=== PATIENT | female | born 1930 | race Caucasian/White ===

== ENCOUNTER 2018-11-12 17:58 | Inpatient (IN) | payer MEDICARE ==
[2018-11-12] MEDS ORDERED: SODIUM CHLORIDE 0.9% 1,000 ML IV STA (18:02)
--- NOTE | 2018-11-12 18:09 | ED ---
Syncope HPI - General Stated Complaint: possible stroke CA PT Time Seen by Provider: 11/12/18 18:02 Source: RN notes reviewed, old records reviewed Mode of arrival: EMS - History of Present Illness Initial Comments: This is a 8-year-old female the ER for evaluation of syncopal event. EMS states patient was in sinus rhythm as well as atrial fibrillation during transfer. Patient has no significant history of syncope. Currently denying any complaints no headache chest pain shortness breath or abdominal pain. This patient is a known history of CVA hypertension high cholesterol. Patient's been dizzy for a few days which progressed unresponsiveness episode today. No recent change in medications. MD Complaint: loss of consciousness -: minutes(s) Prodromal Symptoms: lightheaded, palpitations -: second(s) Witnessed: yes - by bystander, yes - by EMS Current Symptoms: lightheaded History: previous syncopal episode Context: at rest Treatments Prior to Arrival: none - Related Data Home Medications Medication Instructions Recorded Confirmed Albuterol Sulfate [Proair Hfa] 1 - 2 puff INHALATION RT-QID PRN 11/12/18 11/12/18 Beclomethasone Dipropionate [Qvar 1 puff INHALATION RT-BID 11/12/18 11/12/18 40 mcg Redihaler] Iron 27mg 27 mg PO BID 11/12/18 11/12/18 Levothyroxine Sodium [Synthroid] 137 mcg PO MOTUWETHFRSA 11/12/18 11/12/18 Levothyroxine Sodium [Synthroid] 274 mcg PO HAIRSTON 11/12/18 11/12/18 Metoprolol Succinate [Toprol XL] 50 mg PO DAILY@1200 11/12/18 11/12/18 Simvastatin [Zocor] 20 mg PO HS 11/12/18 11/12/18 amLODIPine [Norvasc] 10 mg PO DAILY 11/12/18 11/12/18 Allergies Allergy/AdvReac Type Severity Reaction Status Date / Time No Known Allergies Allergy Verified 11/12/18 18:33 Review of Systems ROS Statement: Those systems with pertinent positive or pertinent negative responses have been documented in the HPI. ROS Other: All systems not noted in ROS Statement are negative. General Exam General appearance: alert, in no apparent distress Head exam: Present: atraumatic, normocephalic, normal inspection Eye exam: Present: normal appearance, PERRL, EOMI. Absent: scleral icterus, conjunctival injection, periorbital swelling ENT exam: Present: normal exam, mucous membranes moist Neck exam: Present: normal inspection. Absent: tenderness, meningismus, lymphadenopathy Respiratory exam: Present: normal lung sounds bilaterally. Absent: respiratory distress, wheezes, rales, rhonchi, stridor Cardiovascular Exam: Present: regular rate, normal rhythm, normal heart sounds. Absent: systolic murmur, diastolic murmur, rubs, gallop, clicks GI/Abdominal exam: Present: soft, normal bowel sounds. Absent: distended, tenderness, guarding, rebound, rigid Extremities exam: Present: normal inspection, full ROM, normal capillary refill. Absent: tenderness, pedal edema, joint swelling, calf tenderness Back exam: Present: normal inspection Neurological exam: Present: alert, oriented X3, CN II-XII intact Psychiatric exam: Present: normal affect, normal mood Skin exam: Present: warm, dry, intact, normal color. Absent: rash Course Vital Signs 11/12/18 18:11 Temperature 98.5 F Pulse Rate 69 Respiratory 19 Rate Blood Pressure 127/86 O2 Sat by Pulse 95 Oximetry - Reevaluation(s) Reevaluation #1: 11/12/18 18:32 Medical records reviewed as well as EMS EKG and rhythm strip Reevaluation #2: 11/12/18 19:31 Patient without recurrent syncope here in the ER, still not feeling well Medical Decision Making - Medical Decision Making 88 female the ER for syncopal evaluation. Patient be admitted for telemetry. Patient did have syncopal events, will admit for monitoring of possible causes of syncope. - Lab Data Result diagrams: 11/12/18 18:31 11/12/18 18:31 Lab Results 11/12/18 11/12/18 11/12/18 Range/Units 18:31 18:31 18:31 WBC 16.6 H (3.8-10.6) k/uL RBC 4.48 (3.80-5.40) m/uL Hgb 11.2 L (11.4-16.0) gm/dL Hct 37.4 (34.0-46.0) % MCV 83.4 (80.0-100.0) fL MCH 24.9 L (25.0-35.0) pg MCHC 29.9 L (31.0-37.0) g/dL RDW 16.8 H (11.5-15.5) % Plt Count 393 (150-450) k/uL Neutrophils % 90 % Lymphocytes % 5 % Monocytes % 4 % Eosinophils % 1 % Basophils % 0 % Neutrophils # 14.9 H (1.3-7.7) k/uL Lymphocytes # 0.8 L (1.0-4.8) k/uL Monocytes # 0.6 (0-1.0) k/uL Eosinophils # 0.1 (0-0.7) k/uL Basophils # 0.0 (0-0.2) k/uL Hypochromasia Moderate Anisocytosis Slight Sodium 134 L (137-145) mmol/L Potassium 3.2 L (3.5-5.1) mmol/L Chloride 95 L (98-107) mmol/L Carbon Dioxide 32 H (22-30) mmol/L Anion Gap 7 mmol/L BUN 12 (7-17) mg/dL Creatinine 0.95 (0.52-1.04) mg/dL Est GFR (CKD-EPI)AfAm 63 (>60 ml/min/1.73 sqM) Est GFR (CKD-EPI)NonAf 54 (>60 ml/min/1.73 sqM) Glucose 131 H (74-99) mg/dL Calcium 8.8 (8.4-10.2) mg/dL Magnesium 1.5 L (1.6-2.3) mg/dL Total Bilirubin 1.2 (0.2-1.3) mg/dL AST 12 L (14-36) U/L ALT 8 L (9-52) U/L Alkaline Phosphatase 102 (38-126) U/L Creatine Kinase <20 L (30-135) U/L Total Protein 6.0 L (6.3-8.2) g/dL Albumin 2.8 L (3.5-5.0) g/dL Urine Color Yellow Urine Appearance Cloudy H (Clear) Urine pH 5.5 (5.0-8.0) Ur Specific [place] 1.019 (1.001-1.035) Urine Protein 1+ H (Negative) Urine Glucose (UA) Negative (Negative) Urine Ketones Negative (Negative) Urine Blood Negative (Negative) Urine Nitrite Negative (Negative) Urine Bilirubin Negative (Negative) Urine Urobilinogen 2.0 (<2.0) mg/dL Ur Leukocyte Esterase Negative (Negative) Urine WBC 9 H (0-5) /hpf Ur Squamous Epith Cells <1 (0-4) /hpf Hyaline Casts 207 H (0-2) /lpf Urine Mucus Few H (None) /hpf - Radiology Data Radiology results: report reviewed (CT brain is negative for acute disease, chest x-rays negative for acute disease), image reviewed Disposition Clinical Impression: Vasovagal syncope, Cancer Disposition: ADMITTED IP TO THIS HOSP Condition: Fair Is patient prescribed a controlled substance at d/c from ED?: No Referrals: Rohan Philip DO [Primary Care Provider] - 1-2 days
[2018-11-12 19:05] LABS: Anisocytosis Slight; Basophils % (A) 0 %; Eosinophils # (A) 0.1 k/uL (0-0.7); Eosinophils % (A) 1 %; HCT 37.4 % (34.0-46.0); HGB 11.2 gm/dL (11.4-16.0); Hypochromasia Moderate; Lymphocytes # (A) 0.8 k/uL (1.0-4.8); Lymphocytes % (A) 5 %; MCH 24.9 pg (25.0-35.0); MCHC 29.9 g/dL (31.0-37.0); MCV 83.4 fL (80.0-100.0); Mean Platelet Volume 7.4; Monocytes # (A) 0.6 k/uL (0-1.0); Monocytes % (A) 4 %; Neutrophils # (A) 14.9 k/uL (1.3-7.7); Neutrophils % (A) 90 %; Platelet Count 393 k/uL (150-450); RBC 4.48 m/uL (3.80-5.40); RDW 16.8 % (11.5-15.5); WBC 16.6 k/uL (3.8-10.6)
[2018-11-12 19:18] LABS: ALT 8 U/L (9-52); AST 12 U/L (14-36); Albumin 2.8 g/dL (3.5-5.0); Alkaline Phosphatase 102 U/L (38-126); Anion Gap 7 mmol/L; Appearance,Urine Cloudy (Clear); Bilirubin,Urine Negative (Negative); Blood Urea Nitrogen 12 mg/dL (7-17); Blood,Urine Negative (Negative); Calcium 8.8 mg/dL (8.4-10.2); Carbon Dioxide 32 mmol/L (22-30); Chloride 95 mmol/L (98-107); Color,Urine Yellow; Creatine Kinase <20 U/L (30-135); Glucose 131 mg/dL (74-99); Glucose,Urine (UA) Negative (Negative); Hyaline Casts,Urine 207 /lpf (0-2); Ketones,Urine Negative (Negative); Leukocyte Esterase,Urine Negative (Negative); Magnesium 1.5 mg/dL (1.6-2.3); Mucus,Urine Few /hpf; Nitrite,Urine Negative (Negative); PH, Urine 5.5 (5.0-8.0); Potassium 3.2 mmol/L (3.5-5.1); Protein,Urine 1+ (Negative); Sodium 134 mmol/L (137-145); Specific Gravity,Urine 1.019 (1.001-1.035); Squamous Epithelial Cell,Urine <1 /hpf (0-4); Total Bilirubin 1.2 mg/dL (0.2-1.3); WBC,Urine 9 /hpf (0-5)
[2018-11-12] MEDS ORDERED: NITROGLYCERIN SL TABS 0.4 MG TAB SUBLINGUAL PRN (19:28)
[2018-11-12 19:34] LABS: INR 1.1 (<1.2); Partial Thromboplastin Time 24.1 sec (22.0-30.0); Prothrombin Time 11.9 sec (9.0-12.0)
[2018-11-12 19:41] LABS: D-Dimer 3.69 mg/L FEU (<0.60)
--- NOTE | 2018-11-12 19:46 | XR ---
EXAMINATION TYPE: XR chest 2V DATE OF EXAM: 11/12/2018 COMPARISON: NONE HISTORY: Syncope TECHNIQUE: Frontal and lateral views of the chest are obtained. FINDINGS: There is some patchy airspace infiltrate left lower lobe. There are 2 nodular opacities in the right lower lung field on the frontal view that measure up to 2 cm. There is no heart failure. H eart size is normal. There are chest leads. Thoracic aorta is atheromatous. Bony thorax is intact. Th ere is pleural thickening posteriorly on the left side on the lateral view. IMPRESSION: Left lower lobe patchy pneumonia. No heart failure. Right ovary nodules are relatively d ense and could be granulomata. There is some pleural thickening at the left posterior lung base on th e lateral view. Follow-up is recommended show long-term stability or clearing.
--- NOTE | 2018-11-12 19:47 | CT ---
EXAMINATION TYPE: CT brain wo con DATE OF EXAM: 11/12/2018 COMPARISON: None HISTORY: WEAKNESS AND SYNCOPE CT DLP: 1098.4 mGycm Automated exposure control for dose reduction was used. FINDINGS: There is cerebral cortical atrophy. There is no mass effect nor midline shift. There is no sign of in tracranial hemorrhage. There is mild hypodensity around the frontal horns of the lateral ventricles. Calvarium is intact. 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 NO ACUTE INTRACRANIAL ABNORMALITY.
[2018-11-12] MEDS: POTASSIUM CHLORIDE 20 MEQ in WATER FOR INJECTION 1 100ML.BAG IVPB SCH (20:10)
[2018-11-12] MEDS: MAGNESIUM SULFATE-D5W PMX 1 GM in DEXTROSE/WATER 1 100ML.BAG IVPB SCH ×2 (20:10→21:33)
[2018-11-12] MEDS: SODIUM CHLORIDE 0.9% 1,000 ML IV SCH (20:11)
--- NOTE | 2018-11-12 20:47 | CT ---
EXAMINATION TYPE: CT angio chest DATE OF EXAM: 11/12/2018 8:00 PM COMPARISON: None HISTORY: Elevated D-dimer and syncope. CT DLP: 206.4 mGycm Automated exposure control for dose reduction was used. CONTRAST: CTA scan of the thorax is performed with IV Contrast, patient injected with 62ml mL of Isovue 370, pu lmonary embolism protocol. There are 3-D post processed images.. FINDINGS: There is small left apical pneumothorax of approximately 10%. There is irregular pleural thickening a t the left posterior lung base. There are 2 subpleural pulmonary nodules in the posterior right lower lobe near the chest wall. These measure 2 cm and 1.5 cm. There is calcified granuloma in the mediastinum. Thoracic aorta is atheromatous. THERE IS PROBABLY A TINY AMOUNT OF AIR IN THE ANTERIOR BILIARY TREE CONSISTENT WITH INCOMPETENT SPHIN CTER. There is normal contrast opacification of the pulmonary arteries. I see no filling defect. There are no hilar masses. There is spurring in the thoracic spine. I see no bony destructive process. IMPRESSION: No evidence of pulmonary embolism. Emphysema and pulmonary fibrosis. Right lower lobe nodules are not calcified but are relatively dense and could be granulomata. Irregular pleural thickening at the left lung base with some patchy fibrosis and atelectasis. Small l eft-sided pneumothorax. This exam was discussed with ER physician at 8:43 PM.
[2018-11-13] MEDS: POTASSIUM CHLORIDE 20 MEQ in WATER FOR INJECTION 1 100ML.BAG IVPB SCH (06:10)
[2018-11-13] MEDS: LEVOTHYROXINE 137 MCG TAB PO SCH (06:12)
[2018-11-13] MEDS: SODIUM CHLORIDE 0.9% 1,000 ML IV SCH ×2 (06:12→16:32)
[2018-11-13] MEDS: amLODIPine 10 MG TAB PO SCH (09:08)
[2018-11-13] MEDS: ASPIRIN 325 MG TAB PO SCH (09:10)
[2018-11-13] MEDS: ENOXAPARIN 40 MG/0.4 ML SYRINGE SQ SCH (09:10)
[2018-11-13] MEDS: FERROUS SULFATE ORAL ELIXIR 300 MG/5 ML CUP PO SCH ×2 (09:10→19:56)
[2018-11-13] MEDS: ALBUTEROL NEBULIZED 2.5 MG/3 ML INHALATION SCH ×4 (11:03→19:49)
[2018-11-13] MEDS: BUDESONIDE 0.5 MG/2 ML NEBU INHALATION SCH ×2 (11:12→19:49)
--- NOTE | 2018-11-13 11:41 | P.CONS ---
History of Present Illness - Reason for Consult Consult date: 11/13/18 New diagnosis Malignancy Requesting physician: Kvng Rhodes - Chief Complaint syncope - History of Present Illness Alyson is a 88-year-old patient who originally presented to [facility] in August with hematochezia she was found to be profusely anemic and transfused a unit of packed red blood cells she was transferred to [facility] for she was given a second unit of packed red blood cells. CAT scans were completed and revealed a proximal colonic wall thickening suspicious for neoplastic process. She was seen by Dr. VILLAGRAN had a colonoscopy on 10/24/2018 at that time the colonoscopy revealed 2 polyps in the transverse colon ,and an ulcerating mass in the proximal ascending colon biopsies of the mass were taken and resulted with adenocarcinoma the biopsies of the 2 polyps revealed tubular adenomas. CAT scans of the abdomen and pelvis in August revealed a right posterior lesion of the lung base approximately at that time 1.2 cm, this has been monitored since January 2018 which appeared stable in August. She was seen by Dr. Banegas in the office for her first time consultation yesterday 11/12/2018 she presented with her family at that time and they discussed the natural history of her new diagnosis of colon cancer as well as recommendations were given. Recommendations were for surgical intervention for a resection of the tumor and that with a right colectomy for palliative treatment to prevent further bleeding as well as the potential of future perforation. She was also given the options of chemotherapy and/or prevent potential radiation therapy but due to her advanced age and comorbidities this was not recommended Dr. Weiss was referred at that appointment for further search surgical evaluation. Alyson presented to the emergency room last night via EMS for syncopal episode she states that she has been feeling Saurabh lightheaded and dizzy over the past few weeks related to her anemia. On admission a CAT scan of the brain was completed with no acute etiology as well as a CTA of the chest which showed a very small left apical pneumothorax of approximately 10% again represented to subpleural pulmonary nodules in the posterior right lung of the lower lobe near the chest wall measuring now 2 cm and 1.5 cm. On admission she was also found hypokalemic she's given IV hydration and supportive care hematology oncology as well as a consultation for Dr. Isabel Joseph. surgery regarding the right colectomy recommendation was placed she was seen this morning by Dr. Daniels and myself with no acute complaints Review of Systems A 14 point review of systems was assessed and completed and are all negative except for HPI Past Medical History Past Medical History: Cancer, COPD, Hyperlipidemia, Hypertension, Thyroid Disorder Additional Past Medical History / Comment(s): aortic aneurysm; colon, dx 11/12/18 History of Any Multi-Drug Resistant Organisms: None Reported Past Surgical History: Cholecystectomy Additional Past Surgical History / Comment(s): spleen removed; colonscopy recent Past Anesthesia/Blood Transfusion Reactions: No Reported Reaction Past Psychological History: No Psychological Hx Reported Smoking Status: Former smoker Past Alcohol Use History: None Reported Past Drug Use History: None Reported - Past Family History Daughter(s) Family Medical History: No Reported History Medications and Allergies Home Medications Medication Instructions Recorded Confirmed Type Albuterol Sulfate [Proair Hfa] 1 - 2 puff INHALATION RT-QID PRN 11/12/18 11/12/18 History Beclomethasone Dipropionate [Qvar 1 puff INHALATION RT-BID 11/12/18 11/12/18 History 40 mcg Redihaler] Iron 27mg 27 mg PO BID 11/12/18 11/12/18 History Levothyroxine Sodium [Synthroid] 137 mcg PO MOTUWETHFRSA 11/12/18 11/12/18 History Levothyroxine Sodium [Synthroid] 274 mcg PO HAIRSTON 11/12/18 11/12/18 History Metoprolol Succinate [Toprol XL] 50 mg PO DAILY@1200 11/12/18 11/12/18 History Simvastatin [Zocor] 20 mg PO HS 11/12/18 11/12/18 History amLODIPine [Norvasc] 10 mg PO DAILY 11/12/18 11/12/18 History Allergies Allergy/AdvReac Type Severity Reaction Status Date / Time No Known Allergies Allergy Verified 11/12/18 18:33 Physical Exam Vitals: Vital Signs Temp Pulse Pulse Resp BP BP Pulse Ox 11/13/18 05:41 97.6 F 71 18 120/66 96 11/12/18 22:33 98.3 F 78 18 136/88 93 L 11/12/18 21:20 95 14 134/68 94 L 11/12/18 21:10 73 18 134/68 93 L 11/12/18 21:00 90 18 125/63 95 11/12/18 20:50 91 24 125/63 94 L 11/12/18 20:40 90 12 125/63 96 11/12/18 20:30 75 19 135/80 94 L 11/12/18 20:20 90 20 135/80 92 L 11/12/18 20:10 80 20 135/80 95 11/12/18 20:00 71 19 133/89 93 L 11/12/18 19:50 133/89 11/12/18 19:40 76 22 133/89 96 11/12/18 19:30 90 21 139/74 96 11/12/18 19:20 99 22 139/74 95 11/12/18 19:10 139/74 11/12/18 19:00 84 20 119/73 95 11/12/18 18:50 119/73 91 L 11/12/18 18:40 119/73 89 L 11/12/18 18:30 127/86 96 11/12/18 18:20 127/86 95 11/12/18 18:13 96 11/12/18 18:11 98.5 F 69 19 127/86 95 Intake and Output 11/12/18 11/13/18 11/13/18 22:59 06:59 14:59 Intake Total 60 Balance 60 Intake: Oral 60 Other: # Voids 3 1 Weight 55.338 kg General: Alert and Oriented x3, No Acute Distress Head: Normocytic, Atraumatic Neck: Supple Mouth: No Lesions, No Thrush Eyes: Non-sclerotic No Palpable cervical, supraclavicular, axillary adenopathy Heart: Regular Rate, Regular Rhythm Lungs: Clear to Ausculations, No Wheeze, No Rhonchi, Diminishe bilateral lower lobes, No increased respiratory effort noted Abdomen: Soft, Non-Distended, Non-Tended, BSx4 Extremities: No Edema, Equal Strength Neurological: No Focal Defects: No sensory or motor deficits noted Psych: Calm and cooperative Results CBC & Chem 7: 11/12/18 18:31 11/12/18 18:31 Labs: Abnormal Lab Results - Last 24 Hours (Table) 11/12/18 11/12/18 11/12/18 Range/Units 18:31 18:31 18:31 WBC 16.6 H (3.8-10.6) k/uL Hgb 11.2 L (11.4-16.0) gm/dL MCH 24.9 L (25.0-35.0) pg MCHC 29.9 L (31.0-37.0) g/dL RDW 16.8 H (11.5-15.5) % Neutrophils # 14.9 H (1.3-7.7) k/uL Lymphocytes # 0.8 L (1.0-4.8) k/uL D-Dimer 3.69 H (<0.60) mg/L FEU Sodium 134 L (137-145) mmol/L Potassium 3.2 L (3.5-5.1) mmol/L Chloride 95 L (98-107) mmol/L Carbon Dioxide 32 H (22-30) mmol/L Glucose 131 H (74-99) mg/dL Magnesium 1.5 L (1.6-2.3) mg/dL AST 12 L (14-36) U/L ALT 8 L (9-52) U/L Creatine Kinase <20 L (30-135) U/L Total Protein 6.0 L (6.3-8.2) g/dL Albumin 2.8 L (3.5-5.0) g/dL TSH (0.465-4.680) mIU/L Urine Appearance (Clear) Urine Protein (Negative) Urine WBC (0-5) /hpf Hyaline Casts (0-2) /lpf Urine Mucus (None) /hpf 11/12/18 11/13/18 Range/Units 18:31 07:32 WBC (3.8-10.6) k/uL Hgb (11.4-16.0) gm/dL MCH (25.0-35.0) pg MCHC (31.0-37.0) g/dL RDW (11.5-15.5) % Neutrophils # (1.3-7.7) k/uL Lymphocytes # (1.0-4.8) k/uL D-Dimer (<0.60) mg/L FEU Sodium (137-145) mmol/L Potassium (3.5-5.1) mmol/L Chloride (98-107) mmol/L Carbon Dioxide (22-30) mmol/L Glucose (74-99) mg/dL Magnesium (1.6-2.3) mg/dL AST (14-36) U/L ALT (9-52) U/L Creatine Kinase (30-135) U/L Total Protein (6.3-8.2) g/dL Albumin (3.5-5.0) g/dL TSH 0.033 L (0.465-4.680) mIU/L Urine Appearance Cloudy H (Clear) Urine Protein 1+ H (Negative) Urine WBC 9 H (0-5) /hpf Hyaline Casts 207 H (0-2) /lpf Urine Mucus Few H (None) /hpf CT scan - chest: report reviewed CT Scan - head: report reviewed Assessment and Plan (1) Colon cancer Current Visit: Yes Status: Acute Code(s): C18.9 - MALIGNANT NEOPLASM OF COLON, UNSPECIFIED SNOMED Code(s): 357942767 (2) Normocytic anemia Current Visit: Yes Status: Acute Code(s): D64.9 - ANEMIA, UNSPECIFIED SNOMED Code(s): 962243145 Plan: Assessment and Recommendation New Diagnosis of Adenocarcinoma of the Colon: - Colonoscopy and Pathology performed and resulted at outside hospital - Obtain a copy of diagnstic exams and pathology report - Recommendations have been for surgical intervention, plus/minus adjuvant chemotherapy. with her advanced age and co-morbidies chemotherapy is not entirely recommended, this was discussed in detail with patient and her family by Dr. Banegas on 11/12/18 in office consultation. Goals of care are quality of life, therefore a colectomy was recommendation for prevention of tumor burden complications such as further bleeding, colonic obstruction, and possibly perforation. - Dr. Weiss has been consulted - Baseline CEA today Normocytic Anemia: - Secondary to acute blood loss anemia from malignancy - Will check Iron studies today and can set patient up for parental iron in office Vasovagal, Syncopal Episode: Improved Hypokalemia: - Likely secondary to dehydration - IV hydration and replacement of electrolytes - Recheck Electrolytes and Magnesium today Plan: - General Surgery to evaluate - Iron Replacement - Follow-up in office post-operatively Physician Attestation: I have performed the full physical examination and reviewed the full history of this patient, as well as pertinent findings. I have created the compled impression and recommendations. I agree with the above dictation by MEENAKSHI Brewer. This dictation has been written as a scribe.
[2018-11-13 12:12] LABS: ALT 15 U/L (9-52); AST 12 U/L (14-36); Albumin 2.5 g/dL (3.5-5.0); Alkaline Phosphatase 89 U/L (38-126); Anion Gap 2 mmol/L; Blood Urea Nitrogen 9 mg/dL (7-17); Calcium 8.5 mg/dL (8.4-10.2); Carbon Dioxide 33 mmol/L (22-30); Chloride 101 mmol/L (98-107); Glucose 90 mg/dL (74-99); Magnesium 1.8 mg/dL (1.6-2.3); Potassium 2.9 mmol/L (3.5-5.1); Sodium 136 mmol/L (137-145); Total Bilirubin 1.1 mg/dL (0.2-1.3); Total Protein 5.5 g/dL (6.3-8.2)
[2018-11-13 12:34] LABS: Anisocytosis Slight; Basophils % (A) 0 %; Eosinophils # (A) 0.4 k/uL (0-0.7); Eosinophils % (A) 3 %; HCT 37.4 % (34.0-46.0); HGB 11.1 gm/dL (11.4-16.0); Hypochromasia Marked; Lymphocytes # (A) 1.2 k/uL (1.0-4.8); Lymphocytes % (A) 10 %; MCH 25.6 pg (25.0-35.0); MCHC 29.8 g/dL (31.0-37.0); MCV 85.9 fL (80.0-100.0); Mean Platelet Volume 9.4; Monocytes # (A) 0.7 k/uL (0-1.0); Monocytes % (A) 5 %; Neutrophils # (A) 10.2 k/uL (1.3-7.7); Neutrophils % (A) 81 %; Platelet Count 366 k/uL (150-450); RBC 4.36 m/uL (3.80-5.40); RDW 16.3 % (11.5-15.5); WBC 12.6 k/uL (3.8-10.6)
[2018-11-13] MEDS: METOPROLOL SUCCINATE (ER) 50 MG TAB.ER.24H PO SCH (13:15)
--- NOTE | 2018-11-13 14:07 | P.GSCN ---
<Lakshmi Burnett - Last Filed: 11/13/18 14:03> History of Present Illness Consult date: 11/13/18 Reason for Consult: [place] Requesting physician: Kvng Rhodes History of present illness: CHIEF COMPLAINT: syncope, cancer HISTORY OF PRESENT ILLNESS: 88-year-old female who presented to the ER secondary to syncope. General surgery is consulted for further evaluation of recent cancer diagnosis. Patients daughter is at the bedside and relaying majority of information. Daughter states patient recently had some GI bleeding and underwent colonoscopy at [facility]. She states colonoscopy revealed a tumor on the right side of her colon and some polyps on the left. Daughter states pathology came back positive for cancer. She had an appointment with oncology outpatient yesterday and was referred to Dr. Weiss for further evaluation. PAST MEDICAL HISTORY: See list. PAST SURGICAL HISTORY: See list. SOCIAL HISTORY: No illicit drug use. REVIEW OF SYSTEMS: CONSTITUTIONAL: Denies fever or chills. HEENT: Denies blurred vision, vision changes, or eye pain. Denies hemoptysis CARDIOVASCULAR: Denies chest pain or pressure. RESPIRATORY: No shortness of breath. GASTROINTESTINAL: Refer to HPI for pertinent findings HEMATOLOGIC: Denies bleeding disorders. GENITOURINARY: Denies any blood in urine. SKIN: Denies pruitis. Denies rash. PHYSICAL EXAM: VITAL SIGNS: Reviewed. GENERAL: Well-developed in no acute distress. HEENT: No sclera icterus. Extraocular movements grossly intact. Moist buccal mucosa. Head is atraumatic, normocephalic. ABDOMEN: Soft. Nondistended. Nontender. NEUROLOGIC: Alert and oriented. Cranial nerves II through XII grossly intact. ASSESSMENT: 1. Recent diagnosis of adenocarcinoma of the colon PLAN: Patients daughter states her mother is agreeable to surgery if it only involves removing the part of the colon where she has the tumor, but patient does not want to undergo surgery if she will require an ostomy and does not want to undergo chemotherapy. CT abdomen and pelvis has been ordered by oncology. Await results. Dr. Weiss will evaluate patient this afternoon for possible right colectomy. Nurse practitioner note has been reviewed by physician. Signing provider agrees with the documented findings, assessment, and plan of care. Past Medical History Past Medical History: Cancer, COPD, Hyperlipidemia, Hypertension, Thyroid Disorder Additional Past Medical History / Comment(s): aortic aneurysm; colon, dx 11/12/18 History of Any Multi-Drug Resistant Organisms: None Reported Past Surgical History: Cholecystectomy Additional Past Surgical History / Comment(s): spleen removed; colonscopy recent Past Anesthesia/Blood Transfusion Reactions: No Reported Reaction Past Psychological History: No Psychological Hx Reported Smoking Status: Former smoker Past Alcohol Use History: None Reported Past Drug Use History: None Reported - Past Family History Daughter(s) Family Medical History: No Reported History Medications and Allergies Home Medications Medication Instructions Recorded Confirmed Type Albuterol Sulfate [Proair Hfa] 1 - 2 puff INHALATION RT-QID PRN 11/12/18 11/12/18 History Beclomethasone Dipropionate [Qvar 1 puff INHALATION RT-BID 11/12/18 11/12/18 History 40 mcg Redihaler] Iron 27mg 27 mg PO BID 11/12/18 11/12/18 History Levothyroxine Sodium [Synthroid] 137 mcg PO MOTUWETHFRSA 11/12/18 11/12/18 History Levothyroxine Sodium [Synthroid] 274 mcg PO HAIRSTON 11/12/18 11/12/18 History Metoprolol Succinate [Toprol XL] 50 mg PO DAILY@1200 11/12/18 11/12/18 History Simvastatin [Zocor] 20 mg PO HS 11/12/18 11/12/18 History amLODIPine [Norvasc] 10 mg PO DAILY 11/12/18 11/12/18 History Allergies Allergy/AdvReac Type Severity Reaction Status Date / Time No Known Allergies Allergy Verified 11/12/18 18:33 Surgical - Exam Vital Signs Temp Pulse Resp BP Pulse Ox 98.5 F 69 19 127/86 95 11/12/18 18:11 11/12/18 18:11 11/12/18 18:11 11/12/18 18:11 11/12/18 18:11 Results - Labs 11/13/18 07:33 11/13/18 07:33 Abnormal Lab Results - Last 24 Hours (Table) 11/12/18 11/12/18 11/12/18 Range/Units 18:31 18:31 18:31 WBC 16.6 H (3.8-10.6) k/uL Hgb 11.2 L (11.4-16.0) gm/dL MCH 24.9 L (25.0-35.0) pg MCHC 29.9 L (31.0-37.0) g/dL RDW 16.8 H (11.5-15.5) % Neutrophils # 14.9 H (1.3-7.7) k/uL Lymphocytes # 0.8 L (1.0-4.8) k/uL D-Dimer 3.69 H (<0.60) mg/L FEU Sodium 134 L (137-145) mmol/L Potassium 3.2 L (3.5-5.1) mmol/L Chloride 95 L (98-107) mmol/L Carbon Dioxide 32 H (22-30) mmol/L Glucose 131 H (74-99) mg/dL Magnesium 1.5 L (1.6-2.3) mg/dL AST 12 L (14-36) U/L ALT 8 L (9-52) U/L Creatine Kinase <20 L (30-135) U/L Total Protein 6.0 L (6.3-8.2) g/dL Albumin 2.8 L (3.5-5.0) g/dL TSH (0.465-4.680) mIU/L Urine Appearance (Clear) Urine Protein (Negative) Urine WBC (0-5) /hpf Hyaline Casts (0-2) /lpf Urine Mucus (None) /hpf 11/12/18 11/13/18 11/13/18 Range/Units 18:31 07:32 07:33 WBC 12.6 H (3.8-10.6) k/uL Hgb 11.1 L (11.4-16.0) gm/dL MCH (25.0-35.0) pg MCHC 29.8 L (31.0-37.0) g/dL RDW 16.3 H (11.5-15.5) % Neutrophils # 10.2 H (1.3-7.7) k/uL Lymphocytes # (1.0-4.8) k/uL D-Dimer (<0.60) mg/L FEU Sodium (137-145) mmol/L Potassium (3.5-5.1) mmol/L Chloride (98-107) mmol/L Carbon Dioxide (22-30) mmol/L Glucose (74-99) mg/dL Magnesium (1.6-2.3) mg/dL AST (14-36) U/L ALT (9-52) U/L Creatine Kinase (30-135) U/L Total Protein (6.3-8.2) g/dL Albumin (3.5-5.0) g/dL TSH 0.033 L (0.465-4.680) mIU/L Urine Appearance Cloudy H (Clear) Urine Protein 1+ H (Negative) Urine WBC 9 H (0-5) /hpf Hyaline Casts 207 H (0-2) /lpf Urine Mucus Few H (None) /hpf 11/13/18 Range/Units 07:33 WBC (3.8-10.6) k/uL Hgb (11.4-16.0) gm/dL MCH (25.0-35.0) pg MCHC (31.0-37.0) g/dL RDW (11.5-15.5) % Neutrophils # (1.3-7.7) k/uL Lymphocytes # (1.0-4.8) k/uL D-Dimer (<0.60) mg/L FEU Sodium 136 L (137-145) mmol/L Potassium 2.9 L (3.5-5.1) mmol/L Chloride (98-107) mmol/L Carbon Dioxide 33 H (22-30) mmol/L Glucose (74-99) mg/dL Magnesium (1.6-2.3) mg/dL AST 12 L (14-36) U/L ALT (9-52) U/L Creatine Kinase (30-135) U/L Total Protein 5.5 L (6.3-8.2) g/dL Albumin 2.5 L (3.5-5.0) g/dL TSH (0.465-4.680) mIU/L Urine Appearance (Clear) Urine Protein (Negative) Urine WBC (0-5) /hpf Hyaline Casts (0-2) /lpf Urine Mucus (None) /hpf Diabetes panel 11/12/18 11/13/18 11/13/18 Range/Units 18:31 07:32 07:33 Sodium 134 L 136 L (137-145) mmol/L Potassium 3.2 L 2.9 L (3.5-5.1) mmol/L Chloride 95 L 101 (98-107) mmol/L Carbon Dioxide 32 H 33 H (22-30) mmol/L BUN 12 9 (7-17) mg/dL Creatinine 0.95 0.58 (0.52-1.04) mg/dL Glucose 131 H 90 (74-99) mg/dL Calcium 8.8 8.5 (8.4-10.2) mg/dL AST 12 L 12 L (14-36) U/L ALT 8 L 15 (9-52) U/L Alkaline Phosphatase 102 89 (38-126) U/L Total Protein 6.0 L 5.5 L (6.3-8.2) g/dL Albumin 2.8 L 2.5 L (3.5-5.0) g/dL Triglycerides 70 (<150) mg/dL HDL Cholesterol 45 (40-60) mg/dL Thyroid panel 11/13/18 Range/Units 07:32 TSH 0.033 L (0.465-4.680) mIU/L Calcium panel 11/12/18 11/13/18 Range/Units 18:31 07:33 Calcium 8.8 8.5 (8.4-10.2) mg/dL Albumin 2.8 L 2.5 L (3.5-5.0) g/dL Pituitary panel 11/12/18 11/13/18 11/13/18 Range/Units 18:31 07:32 07:33 Sodium 134 L 136 L (137-145) mmol/L Potassium 3.2 L 2.9 L (3.5-5.1) mmol/L Chloride 95 L 101 (98-107) mmol/L Carbon Dioxide 32 H 33 H (22-30) mmol/L BUN 12 9 (7-17) mg/dL Creatinine 0.95 0.58 (0.52-1.04) mg/dL Glucose 131 H 90 (74-99) mg/dL Calcium 8.8 8.5 (8.4-10.2) mg/dL TSH 0.033 L (0.465-4.680) mIU/L Adrenal panel 11/12/18 11/13/18 Range/Units 18:31 07:33 Sodium 134 L 136 L (137-145) mmol/L Potassium 3.2 L 2.9 L (3.5-5.1) mmol/L Chloride 95 L 101 (98-107) mmol/L Carbon Dioxide 32 H 33 H (22-30) mmol/L BUN 12 9 (7-17) mg/dL Creatinine 0.95 0.58 (0.52-1.04) mg/dL Glucose 131 H 90 (74-99) mg/dL Calcium 8.8 8.5 (8.4-10.2) mg/dL Total Bilirubin 1.2 1.1 (0.2-1.3) mg/dL AST 12 L 12 L (14-36) U/L ALT 8 L 15 (9-52) U/L Alkaline Phosphatase 102 89 (38-126) U/L Total Protein 6.0 L 5.5 L (6.3-8.2) g/dL Albumin 2.8 L 2.5 L (3.5-5.0) g/dL <Everett Weiss - Last Filed: 11/13/18 20:15> History of Present Illness History of present illness: As above. Patient with mental status changes that have improved. CTA reviewed and CAT scan abdomen and pelvis scheduled for tomorrow morning. Patient is having some obstructive symptoms related to her right-sided tumor. On examination there is some fullness in the right lower quadrant. We'll tentatively plan open right colectomy when medically cleared assuming there is no large volume metastatic disease seen on tomorrow's CAT scan. Clinical scen ario discussed with the patient in detail. Further decisions regarding surgery will be discussed with the patient tomorrow. Surgical - Exam Vital Signs Temp Pulse Resp BP Pulse Ox 98.5 F 69 19 127/86 95 11/12/18 18:11 11/12/18 18:11 11/12/18 18:11 11/12/18 18:11 11/12/18 18:11 Results - Labs 11/13/18 07:33 11/13/18 07:33 Abnormal Lab Results - Last 24 Hours (Table) 11/13/18 11/13/18 11/13/18 Range/Units 07:32 07:33 07:33 WBC 12.6 H (3.8-10.6) k/uL Hgb 11.1 L (11.4-16.0) gm/dL MCHC 29.8 L (31.0-37.0) g/dL RDW 16.3 H (11.5-15.5) % Neutrophils # 10.2 H (1.3-7.7) k/uL Sodium 136 L (137-145) mmol/L Potassium 2.9 L (3.5-5.1) mmol/L Carbon Dioxide 33 H (22-30) mmol/L AST 12 L (14-36) U/L Total Protein 5.5 L (6.3-8.2) g/dL Albumin 2.5 L (3.5-5.0) g/dL TSH 0.033 L (0.465-4.680) mIU/L Diabetes panel 11/13/18 11/13/18 Range/Units 07:32 07:33 Sodium 136 L (137-145) mmol/L Potassium 2.9 L (3.5-5.1) mmol/L Chloride 101 (98-107) mmol/L Carbon Dioxide 33 H (22-30) mmol/L BUN 9 (7-17) mg/dL Creatinine 0.58 (0.52-1.04) mg/dL Glucose 90 (74-99) mg/dL Calcium 8.5 (8.4-10.2) mg/dL AST 12 L (14-36) U/L ALT 15 (9-52) U/L Alkaline Phosphatase 89 (38-126) U/L Total Protein 5.5 L (6.3-8.2) g/dL Albumin 2.5 L (3.5-5.0) g/dL Triglycerides 70 (<150) mg/dL HDL Cholesterol 45 (40-60) mg/dL Thyroid panel 11/13/18 Range/Units 07:32 TSH 0.033 L (0.465-4.680) mIU/L Calcium panel 11/13/18 Range/Units 07:33 Calcium 8.5 (8.4-10.2) mg/dL Albumin 2.5 L (3.5-5.0) g/dL Pituitary panel 11/13/18 11/13/18 Range/Units 07:32 07:33 Sodium 136 L (137-145) mmol/L Potassium 2.9 L (3.5-5.1) mmol/L Chloride 101 (98-107) mmol/L Carbon Dioxide 33 H (22-30) mmol/L BUN 9 (7-17) mg/dL Creatinine 0.58 (0.52-1.04) mg/dL Glucose 90 (74-99) mg/dL Calcium 8.5 (8.4-10.2) mg/dL TSH 0.033 L (0.465-4.680) mIU/L Adrenal panel 11/13/18 Range/Units 07:33 Sodium 136 L (137-145) mmol/L Potassium 2.9 L (3.5-5.1) mmol/L Chloride 101 (98-107) mmol/L Carbon Dioxide 33 H (22-30) mmol/L BUN 9 (7-17) mg/dL Creatinine 0.58 (0.52-1.04) mg/dL Glucose 90 (74-99) mg/dL Calcium 8.5 (8.4-10.2) mg/dL Total Bilirubin 1.1 (0.2-1.3) mg/dL AST 12 L (14-36) U/L ALT 15 (9-52) U/L Alkaline Phosphatase 89 (38-126) U/L Total Protein 5.5 L (6.3-8.2) g/dL Albumin 2.5 L (3.5-5.0) g/dL
[2018-11-13] MEDS ORDERED: Magnesium Replacement Protocol 1 EACH MISC MISCELLANE PRN (16:06)
[2018-11-13] MEDS ORDERED: Potassium Replacement Protocol 1 EACH MISC MISCELLANE PRN ×2 (16:06→21:28)
[2018-11-13] MEDS ORDERED: ALBUTEROL NEBULIZED 2.5 MG/3 ML INHALATION PRN (16:06)
[2018-11-13] MEDS: POTASSIUM BICARBONATE/CIT AC 20 MEQ TABLET.EFF PO SCH ×3 (16:56→19:55)
[2018-11-13] MEDS: 0.9% NACL WITH KCL 40 MEQ/L 1,000 ML IV SCH (16:56)
[2018-11-13] MEDS: FLUTICASONE 44 MCG INHALER INHALATION SCH (19:49)
[2018-11-13] MEDS: ATORVASTATIN 10 MG TAB PO SCH (19:56)
--- NOTE | 2018-11-13 20:02 | HP ---
HISTORY AND PHYSICAL DATE OF SERVICE: 11/12/2018 CHIEF COMPLAINT: Syncope. HISTORY OF PRESENT ILLNESS: This 88-year-old woman with a past medical history of multiple medical problems including COPD, hypertension, hyperlipidemia, hypothyroidism, was recently diagnosed to have colon cancer. The patient was apparently not feeling well at home according to the family and the patient is not taking enough fluids and the patient had a colonoscopy at [facility] and the pathology was positive for malignancy, but the reports are not available at this time. The patient admitted with syncopal episode and patient admitted to the hospital for further evaluation and treatment. The patient being closely monitored. The patient has been followed by Dr. Rohan Montelongo in the outpatient setting. PAST MEDICAL HISTORY: Reviewed. REVIEW OF SYSTEMS: CARDIOVASCULAR: No angina or palpitations. RESPIRATION: As mentioned earlier. GI as mentioned earlier. no dysuria. CENTRAL NERVOUS SYSTEM: No numbness or weakness. CURRENT MEDICATIONS ARE: The home medications are: 1. Norvasc 10 mg p.o. daily. 2. Zocor 20 mg q.h.s. 3. Toprol-XL 50 mg daily. 4. Synthroid 275 mcg p.o. Sunday and 137 mcg p.o. Sunday, Sunday, Sunday, , Sunday, Sunday. 5. Iron 27 mg p.o. b.i.d. 6. Q-Ruben 40 had 1 puff b.i.d. 7. Pro-Air 1 to 2 puffs q.i.d. p.r.n. ALLERGIES: None. FAMILY HISTORY: No history of heart disease or strokes in the family. SOCIAL HISTORY: Previous history of smoking. No history of alcohol intake. REVIEW OF SYSTEMS: ENT: No diminished hearing or vision. CARDIOVASCULAR: No angina. No palpitations. RESPIRATORY: As mentioned earlier. GASTROINTESTINAL: As mentioned earlier. : As mentioned earlier. NERVOUS SYSTEM: No numbness, weakness. ALLERGY/IMMUNOLOGY: No asthma or hayfever. MUSCULOSKELETAL as mentioned earlier. HEMATOLOGY/ONCOLOGY: No history of anemia. ENDOCRINE: Hypothyroidism. CONSTITUTIONAL: As mentioned earlier. DERMATOLOGY: Negative. RHEUMATOLOGY: Negative. PSYCHIATRY: As mentioned earlier. PHYSICAL EXAMINATION: Patient is alert, oriented x2. Pulse is 91, blood pressure 120/60, respiratory 24, temperature 98.3, pulse ox 94% on room air. HEENT: Conjunctivae normal. Oral mucosa dry. NECK is no jugular venous distention. No carotid bruit. No lymph node enlargement. CARDIOVASCULAR: S1, S2 muffled. RESPIRATIONS: Breath sounds diminished in the bases. A few scattered rhonchi and crackles. ABDOMEN: Soft, nontender. No mass palpable. LEGS: No edema. No swelling. CENTRAL NERVOUS SYSTEM: Higher functions as mentioned earlier. Moves all four extremities. No focal deficits. LYMPHATICS: No lymph nodes palpable in the neck, axillae or groin. SKIN: No ulcer, noemy or bleeding. JOINTS: No active deforming arthropathy. LABS: At this time shows WBC 16.6 and hemoglobin is 11.2. Sodium 134, potassium 3.2. UA noted. ASSESSMENT: 1. Syncope for evaluation possible vasovagal possibly secondary to dehydration. 2. Increased WBC. 3. Rule out urinary tract infection. 4. Hyponatremia. 5. Hypokalemia. 6. Hypomagnesemia. 7. History of recent diagnosis of colon cancer. 8. Hypoalbuminemia, mild to moderate protein calorie malnutrition. 9. Chronic obstructive pulmonary disease. 10.Hypertension. 11.Hyperlipidemia. 12.History of hypothyroidism. 13.History of aortic aneurysm. 14.History of cholecystectomy. 15.Remote history of nicotine dependence. RECOMMENDATIONS AND DISCUSSION: This 88 -year-old woman who presented with multiple complex medical issues, we will monitor the patient closely. Continue the current management and symptomatic treatment. Otherwise, at this time, I recommend replace sodium and potassium. Monitor closely. IV fluids. Consult surgery, Oncology. Guarded prognosis because of multiple complex medical issues. Further recommendations to follow. Copy of dictation being forwarded to Dr. Rohan Montelongo who is the primary care physician. MMODL / IJN: [id number] /
--- NOTE | 2018-11-13 20:44 | PN ---
PROGRESS NOTE DATE OF SERVICE: 11/13/2018 This 88-year-old woman who was admitted with syncope also had dehydration. Patient was recently diagnosed with colon cancer. Surgery and Hematology/Oncology are following the patient closely. Repeat CT scan has been ordered. The daughter is agreeable for surgery; there is limited surgery without a need for colostomy, apparently. No chest pain. No palpitations. No fever. REVIEW OF SYSTEMS: CARDIOVASCULAR SYSTEM: No angina, palpitations. RESPIRATORY SYSTEM: As mentioned earlier. GI: As mentioned earlier. : No dysuria or retention. NERVOUS SYSTEM: No numbness, weakness. CURRENT MEDICATIONS: Reviewed. They include: 1. Ventolin 2.5 q.i.d. 2. Norvasc 10 mg p.o. daily. 3. Aspirin 325 mg p.o. daily. 4. Lipitor 10 mg at bedtime. 5. Pulmicort 0.5 b.i.d. 6. Lovenox 40 mg subcutaneously daily. 7. Iron sulfate 325 mg p.o. b.i.d. 8. Synthroid 137 mcg p.o. Sunday, Sunday, Sunday, , Sunday, Sunday; 274 on Sunday. 9. Toprol XL 50 mg p.o. daily. 10.Nitrostat 0.4 sublingually p.r.n. PHYSICAL EXAMINATION: On exam, alert and oriented x2. Pulse is 105, blood pressure 138/69, respirations 16, temperature 97.9, pulse ox 94% on room air. HEENT: Conjunctivae normal. NECK: No jugular venous distention. CARDIOVASCULAR SYSTEM: S1, S2 muffled. RESPIRATORY SYSTEM: Breath sounds diminished at the bases. A few scattered rhonchi. No crackles. ABDOMEN: Soft, non-tender. No mass palpable. LEGS: No edema. No swelling. NERVOUS SYSTEM: No focal deficit. LABS: WBC 12.6, hemoglobin 11.1, sodium 136, potassium 2.9. TSH is 0.033. ASSESSMENT: 1. Syncope, possibly vasovagal, secondary to dehydration. 2. Recent diagnosis of colon cancer. 3. Increased white count. 4. Rule out urinary tract infection. 5. Hyponatremia. 6. Hypokalemia. 7. History of chronic obstructive pulmonary disease. 8. Hypertension. 9. Hyperlipidemia. 10.History of aortic aneurysm. 11.History of cholecystectomy. 12.Remote history of nicotine dependence. RECOMMENDATIONS AND DISCUSSION: In this 88-year-old woman who presented with multiple complex medical issues, we will monitor the patient closely, continue the current management, continue with symptomatic treatment. We will await the CT scan reports. Monitor sodium closely. Correct potassium. Repeat electrolytes in the evening and also check magnesium. Otherwise, continue to monitor. Overall prognosis is guarded because of multiple complex medical issues. We will obtain the biopsy reports. CT scan of the abdomen and pelvis was also ordered. A chest CT was done which showed no evidence of any pulmonary embolism at this time. Prognosis guarded. Further recommendations to follow. MMODL / IJN: [id number] /
[2018-11-13] MEDS ORDERED: POTASSIUM BICARBONATE/CIT AC 20 MEQ TABLET.EFF NG-TUBE ONE (22:00)
--- NOTE | 2018-11-14 00:20 | CONS ---
CONSULTATION This is a pulmonary/critical care consultation. DATE OF SERVICE: 11/13/2008 This is an 88-year-old female that we have been asked to evaluate for an abnormal chest x-ray and CT scan which showed apparently a small left-sided pneumothorax. The patient apparently was told a day ago that she was found to have adenocarcinoma of the colon. Apparently they were prepping the lady for possible surgery. Anyway in the process of evaluating her, she was seen by the oncology doctor yesterday and told that her biopsies of the colon came back positive for adenocarcinoma. She apparently sometime thereafter after she got back home, she could not get up the steps. There was no loss of consciousness. The patient just apparently according to the family member just developed a blank stare and her land sales agent increased and she just could not move. For that reason, she was brought in by EMS to the emergency room to be evaluated for possible stroke. Again, the patient did not have a loss of consciousness at all. The patient apparently was in sinus rhythm in the EMS vehicle on the way into the hospital and also some atrial fibrillation is small. The patient did not complain of any headache or chest pain. There is no shortness of breath or abdominal pain. Would not really clear exactly what happened to her after she saw the oncologist yesterday. Anyway, she is doing relatively well today. According to the family member, she had been coughing a bit. She does also admit to some phlegm production and also has been apparently having some pain in the chest area. No fever or chills. Not having any nausea, vomiting or diarrhea. No genitourinary complaints. MEDICATIONS: Reviewed. They include albuterol sulfate inhaler. She is also on QVAR 40 mcg 2 puffs twice a day, iron, levothyroxine, metoprolol simvastatin, and amlodipine. ALLERGIES: Denied. PAST MEDICAL HISTORY: Positive for colon cancer, recent diagnosis; possible COPD for many years of tobacco use, hyperlipidemia, hypertension, and hypothyroidism. The patient also has a history of aortic aneurysm and recent diagnosis of colon cancer in October of this year. SURGICAL HISTORY: Includes a previous cholecystectomy. She has also had a splenectomy. SOCIAL HISTORY: Positive for previous heavy tobacco use. She quit a couple years back. Denies any alcohol use or illicit drug use. Home medications and have been listed and include from the pulmonary standpoint, ProAir inhaler and QVAR inhaler. REVIEW OF SYSTEMS: CONSTITUTIONAL: Negative. NEUROLOGIC: Negative. HEENT negative. CARDIOVASCULAR: Negative. PULMONARY: Cough with minimal phlegm production and pain in the chest area, particularly in the left chest. GI negative negative. RHEUMATOLOGIC: Negative. IMMUNOLOGIC negative. ENDOCRINOLOGIC negative. DERMATOLOGIC negative. PHYSICAL EXAMINATION: VITAL SIGNS: Current vital signs are reviewed. Temperature 97.9, heart rate 105, respiratory rate 16, blood pressure 138/69 mean 92, room air saturation 95%. GENERAL: The patient appears in no acute distress. No conversational dyspnea. No audible wheezing. No use of accessory muscles. HEENT examination is grossly unremarkable. Mucous membranes are moist. NECK: Supple. Full range of motion. No adenopathy or thyromegaly. Neck veins are flat. CARDIOVASCULAR examination reveals regular rhythm rate. Heart rate 71 beats per minute. S1, S2 normal. No S3, S4, or murmur. LUNGS: Mostly clear breath sounds. No wheezes or rhonchi. A few scattered crackles. ABDOMEN: Soft. Bowel sounds are heard. Extremities are intact. No cyanosis, clubbing, or edema. Skin without rash. Neurologic examination appears to be intact. LABS: Reviewed. White count 12.6, hemoglobin 11.1, hematocrit 37.4, platelet count 366,000. PT/INR were normal. PTT 24.1, D-dimer 3.69. Sodium 136, potassium 2.9, chloride 101, CO2 33, anion gap is 2, BUN and creatinine were 9 and 0.58. AST 12, ALT normal. Total protein 5.5, albumin 2.5, TSH 0.033. The urine is cloudy, 1+ protein, 9 WBCs, leukocyte esterase, and nitrite were both negative. Microbiology is negative. Medications are reviewed. She is currently on albuterol updrafts. She is also on amlodipine, aspirin, atorvastatin, Pulmicort 0.5 twice a day, Lovenox, ferrous sulfate, levothyroxine, metoprolol nitroglycerin, and sodium chloride IV. X-RAY: Chest x-ray looks pretty benign. CT scan of the chest showed no evidence of pulmonary embolism. There is some emphysematous changes and pulmonary fibrosis. There is some right lower lobe nodules that are not calcified, but her density could be granulomas. There is some regular pleural thickening at the left lung base with some patchy fibrosis and atelectasis. In addition, there is a small about a 10% pneumothorax on the left. 1. Recent diagnosis of colon cancer with anticipated surgery in the future. 2. Probable chronic obstructive pulmonary disease although the patient apparently has not been seen by pattern attendant and not had a pulmonary function test. Certainly, either a bedside spirometry and/or full PFT would be a important prior to surgery. 3. Small left-sided pneumothorax, which may relate to a emphysematous lungs. 4. History of hypertension. 5. History of hyperlipidemia. 6. Hypothyroidism. 7. History of atrial fibrillation. 8. Vague neurologic symptoms which occurred yesterday of unclear etiology without jd syncope. PLAN: The patient is on appropriate medications. We will continue to follow. I am not sure they are planning to do a surgery on this admission or discharge. If on this admission, either a full PFT or baseline or a bedside spirometry would be important. Additional recommendations and suggestions are forthcoming. The patient is on albuterol updrafts and currently on some Pulmicort. No additional recommendations are made. Lung findings are relatively benign. The pneumothorax is small and could be observed. MMODL / IJN: [id number] /
[2018-11-14 01:51] LABS: Iron Saturation 8.04 (12.00-45.00)
[2018-11-14 01:53] LABS: Folate, Serum 11.8 ng/mL
[2018-11-14] MEDS: 0.9% NACL WITH KCL 40 MEQ/L 1,000 ML IV SCH (06:11)
[2018-11-14] MEDS: LEVOTHYROXINE 137 MCG TAB PO SCH (06:11)
[2018-11-14] MEDS: ALBUTEROL NEBULIZED 2.5 MG/3 ML INHALATION SCH ×2 (07:36→11:28)
[2018-11-14] MEDS: BUDESONIDE 0.5 MG/2 ML NEBU INHALATION SCH ×2 (07:36→19:38)
[2018-11-14] MEDS: FLUTICASONE 44 MCG INHALER INHALATION SCH ×2 (07:36→19:47)
[2018-11-14] MEDS: amLODIPine 10 MG TAB PO SCH (08:08)
[2018-11-14] MEDS: FERROUS SULFATE ORAL ELIXIR 300 MG/5 ML CUP PO SCH ×2 (08:08→20:11)
[2018-11-14] MEDS: ENOXAPARIN 40 MG/0.4 ML SYRINGE SQ SCH (08:08)
[2018-11-14] MEDS: ASPIRIN 325 MG TAB PO SCH (08:08)
[2018-11-14 08:32] LABS: Anion Gap 1 mmol/L; Anisocytosis Slight; Basophils % (A) 0 %; Blood Urea Nitrogen 9 mg/dL (7-17); Calcium 8.5 mg/dL (8.4-10.2); Carbon Dioxide 33 mmol/L (22-30); Chloride 102 mmol/L (98-107); Eosinophils # (A) 0.4 k/uL (0-0.7); Eosinophils % (A) 3 %; Glucose 77 mg/dL (74-99); HCT 35.8 % (34.0-46.0); HGB 10.4 gm/dL (11.4-16.0); Hypochromasia Marked; Lymphocytes # (A) 1.5 k/uL (1.0-4.8); Lymphocytes % (A) 11 %; MCH 24.7 pg (25.0-35.0); MCHC 28.9 g/dL (31.0-37.0); MCV 85.3 fL (80.0-100.0); Magnesium 1.5 mg/dL (1.6-2.3); Mean Platelet Volume 7.3; Monocytes # (A) 0.5 k/uL (0-1.0); Monocytes % (A) 4 %; Neutrophils # (A) 10.4 k/uL (1.3-7.7); Neutrophils % (A) 80 %; Platelet Count 372 k/uL (150-450); Potassium 4.1 mmol/L (3.5-5.1); RDW 16.9 % (11.5-15.5); Sodium 136 mmol/L (137-145)
[2018-11-14] MEDS: IOPAMIDOL-300 CONTRAST 30 ML VIAL (ORAL USE) PO PRN ×2 (09:18→10:14)
--- NOTE | 2018-11-14 11:07 | P.PN ---
<Lakshmi Burnett Evelin - Last Filed: 11/14/18 11:04> Subjective Progress Note Date: 11/14/18 CHIEF COMPLAINT: syncope, cancer HISTORY OF PRESENT ILLNESS: Patient examined at the bedside. Daughter present. Patient denies abdominal pain. Denies nausea or vomiting. WBC 13.0. Hemoglobin 10.4. PHYSICAL EXAM: VITAL SIGNS: Reviewed. GENERAL: Well-developed in no acute distress. HEENT: No sclera icterus. Extraocular movements grossly intact. Moist buccal mucosa. Head is atraumatic, normocephalic. ABDOMEN: Soft. Nondistended. Nontender. NEUROLOGIC: Alert and oriented. Cranial nerves II through XII grossly intact. ASSESSMENT: 1. Recent diagnosis of adenocarcinoma of the colon PLAN: Patient scheduled for CT abdomen/pelvis today. Await results. Patient will undergo right colectomy within the next few days given clearance from other providers and no large volume metastasis visualized on computed tomography scan. Nurse practitioner note has been reviewed by physician. Signing provider agrees with the documented findings, assessment, and plan of care. Objective - Vital Signs Vital signs: Vital Signs Temp 98.1 F 11/14/18 05:00 Pulse 72 11/14/18 07:52 Resp 18 11/14/18 05:00 BP 125/69 11/14/18 05:00 Pulse Ox 96 11/14/18 05:00 Intake & Output 11/13/18 11/14/18 11/14/18 18:59 06:59 18:59 Intake Total 1400 900 Balance 1400 900 Intake: Intake, IV Titration 800 900 Amount 0.9% NaCl with KCl 40 Meq 900 /l 1,000 ml @ 75 mls/hr IV .[id number] REGGIE Rx#: [id number] Sodium Chloride 0.9% 1, 800 000 ml @ 100 mls/hr IV . Q10H REGGIE Rx#:[id number] Oral 600 Other: Voiding Method Toilet Bedside Commode Bedside Commode Bedpan Bedpan # Voids 3 5 - Labs CBC & Chem 7: 11/14/18 07:58 11/14/18 07:58 Labs: Abnormal Lab Results - Last 24 Hours (Table) 11/13/18 11/13/18 11/13/18 Range/Units 07:33 07:33 07:33 WBC 12.6 H (3.8-10.6) k/uL Hgb 11.1 L (11.4-16.0) gm/dL MCH (25.0-35.0) pg MCHC 29.8 L (31.0-37.0) g/dL RDW 16.3 H (11.5-15.5) % Neutrophils # 10.2 H (1.3-7.7) k/uL Sodium 136 L (137-145) mmol/L Potassium 2.9 L (3.5-5.1) mmol/L Carbon Dioxide 33 H (22-30) mmol/L Magnesium (1.6-2.3) mg/dL Iron 16 L (50-170) ug/dL TIBC 199 L (228-460) ug/dL Iron Saturation 8.04 L (12.00-45.00) AST 12 L (14-36) U/L Total Protein 5.5 L (6.3-8.2) g/dL Albumin 2.5 L (3.5-5.0) g/dL 11/14/18 11/14/18 Range/Units 07:58 07:58 WBC 13.0 H (3.8-10.6) k/uL Hgb 10.4 L (11.4-16.0) gm/dL MCH 24.7 L (25.0-35.0) pg MCHC 28.9 L (31.0-37.0) g/dL RDW 16.9 H (11.5-15.5) % Neutrophils # 10.4 H (1.3-7.7) k/uL Sodium 136 L (137-145) mmol/L Potassium (3.5-5.1) mmol/L Carbon Dioxide 33 H (22-30) mmol/L Magnesium 1.5 L (1.6-2.3) mg/dL Iron (50-170) ug/dL TIBC (228-460) ug/dL Iron Saturation (12.00-45.00) AST (14-36) U/L Total Protein (6.3-8.2) g/dL Albumin (3.5-5.0) g/dL <Everett Weiss - Last Filed: 11/14/18 18:39> Subjective As above. Patient denies abdominal pain. Tolerating diet. Hemoglobin is stable. CAT scan results noted. Mass as visualized involving the right colon consistent with palpable mass on examination. Suspicious abnormalities in the gastric fundus described. We'll find out if the patient had recent upper endoscopy at the time of her colonoscopy. Will switch to clear liquid diet starting tomorrow. Tentatively plan right colectomy on Sunday. Continue pulmonary and medical clearance. Objective - Vital Signs Vital signs: Vital Signs Temp 98.2 F 11/14/18 12:11 Pulse 79 11/14/18 12:11 Resp 17 11/14/18 12:11 BP 152/72 11/14/18 12:11 Pulse Ox 95 11/14/18 12:11 Intake & Output 11/13/18 11/14/18 11/14/18 18:59 06:59 18:59 Intake Total 1400 900 600 Balance 1400 900 600 Intake: Intake, IV Titration 800 900 600 Amount 0.9% NaCl with KCl 40 Meq 900 600 /l 1,000 ml @ 75 mls/hr IV .[id number] REGGIE Rx#: [id number] Sodium Chloride 0.9% 1, 800 000 ml @ 100 mls/hr IV . Q10H REGGIE Rx#:[id number] Oral 600 Other: Voiding Method Toilet Bedside Commode Bedside Commode Bedpan Bedpan # Voids 3 5 5 # Bowel Movements 4 - Labs CBC & Chem 7: 11/14/18 07:58 11/14/18 07:58 Labs: Abnormal Lab Results - Last 24 Hours (Table) 11/13/18 11/14/18 11/14/18 Range/Units 07:33 07:58 07:58 WBC 13.0 H (3.8-10.6) k/uL Hgb 10.4 L (11.4-16.0) gm/dL MCH 24.7 L (25.0-35.0) pg MCHC 28.9 L (31.0-37.0) g/dL RDW 16.9 H (11.5-15.5) % Neutrophils # 10.4 H (1.3-7.7) k/uL Sodium 136 L (137-145) mmol/L Carbon Dioxide 33 H (22-30) mmol/L Magnesium 1.5 L (1.6-2.3) mg/dL Iron 16 L (50-170) ug/dL TIBC 199 L (228-460) ug/dL Iron Saturation 8.04 L (12.00-45.00)
--- NOTE | 2018-11-14 11:36 | CT ---
EXAMINATION TYPE: CT abdomen pelvis w con DATE OF EXAM: 11/14/2018 COMPARISON: Correlation CT chest 11/12/2018 HISTORY: 88 year-old female history of Colon cancer. TECHNIQUE: Contiguous axial scanning of the abdomen and pelvis following administration of 100 ml Iso rj 300 IV contrast. Delayed images through the kidneys and coronal/sagittal reconstructions perform ed. CT DLP: 523.5 mGycm Automated exposure control for dose reduction was used. FINDINGS: Heart upper limits of normal in size. Persistent left-sided pneumothorax. Persistent left pleural eff usion show scalloped margins and adjacent pleural-based thickening. Small right pleural effusion pers ists. Partial visualization of the posterior basilar pulmonary nodule for which metastatic disease no t excluded at this time. 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 The abdominal aorta by iliac stent graft repair demonstrated. [place] sac measures 5.0 cm. No priors f or comparison purposes. No obvious endoleak is identified. Michael dilatation of the bile duct along with moderate intrahepatic biliary ductal dilatation. The ebonie e duct measures up to 1.6 cm. Portal venous system appears patent. There is some patchy hypodensity of the lateral upper and mid pole of the right kidney. Left kidney appears within normal limits. Pancreas is atrophic mild diffuse dilatation of the bile du ct at 3.3 mm. There is a 2.8 cm enhancing soft tissue nodule in the left subphrenic region suggesting a splenule. Bunched up and rounded soft tissue thickening in 2 areas of the gastric fundus measuring up to 3.5 cm . No dilated small bowel, free fluid, or free air. Normal contrast opacified appendix. There is abnormal severe irregular wall thickening involving the lower ascending colon just above the ileocecal valve. Overall mass spans 7.9 cm. Oral contrast makes its way to the rectum. Scattered small mesenteric nodes measure up to 5 mm. Bladder urine distended. Uterus and ovaries are visualized. There is a 2.1 cm cyst within the left ov mary grace. No abnormal collection in the pelvis or pelvic lymphadenopathy seen. Bones: Degenerative changes of the hips. 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 No osseous destructive process seen. Mildly d isplaced tailbone fracture, likely old. IMPRESSION: 1. LOWER ASCENDING COLONIC NEOPLASM SPANNING 7.9 CM. 2. WHILE NO MESENTERIC LYMPHADENOPATHY IS IDENTIFIED , RIGHT BASILAR PULMONARY NODULE SEEN ON PATIENT 'S CT CHEST SHOULD BE VIEWED WITH SUSPICION SHOULD THE ABNORMAL PLEURAL-BASED THICKENING AT THE LE FT BASE. 3. CONTINUED LEFT GREATER THAN RIGHT PLEURAL EFFUSIONS. THE LEFT-SIDED EFFUSION CONTINUES TO HAVE SCA LLOPED MARGIN SUGGESTING COMPLICATED/COMPLEX EFFUSION INCLUDING THE POSSIBILITY OF A MALIGNANT EFFUSI ON. CORRELATION WITH FLUID ANALYSIS. 4. PERSISTENT PARTIALLY VISUALIZED LEFT-SIDED PNEUMOTHORAX. 5. A COUPLE BUNCHED UP/ROUNDED SOFT TISSUE AREAS IN THE GASTRIC FUNDUS. RECOMMEND DIRECT VISUALIZATIO N TO EXCLUDE NEOPLASM. 6. PATCHY HYPODENSITY LATERAL UPPER AND MIDPOLE OF THE RIGHT KIDNEY COULD REPRESENT PERFUSION VARIATI ON. CORRELATE TO EXCLUDE PYELONEPHRITIS. 7. INTRAHEPATIC AND EXTRA \HEPATIC BILIARY DUCTAL DILATATION. THE BILE DUCT MEASURES UP TO 1.6 CM. FI NDINGS MAY BE CHRONIC IN THIS PATIENT. CORRELATE WITH ALKALINE PHOSPHATASE AND BILIRUBIN LEVELS. 8. PRIOR ABDOMINAL AORTOBIILIAC ENDOVASCULAR STENT GRAFT REPAIR WITH A 5 CM SUN'AQ SAC. NO PRIORS FOR COMPARISON PURPOSES. NO EVIDENT ENDOLEAK.
--- NOTE | 2018-11-14 12:37 | P.PN ---
Subjective Progress Note Date: 11/14/18 Principal diagnosis: Weakness, near syncopal episode The patient is seen today in 11/14/2018 in follow-up on the regular medical floor. She is awake and alert in no acute distress. She is a recent diagnosis of adenocarcinoma of the colon and is expected to have surgery next week. She does have some probable underlying COPD from previous heavy tobacco use. She is on Qvar and pro-air in the outpatient setting. Chest x-ray did not show any significant abnormalities. Computed tomography scan of the chest showed no pulmonary embolism. There is some emphysematous changes and pulmonary fibrosis. There is some right lower lobe nodules that are noncalcified for possible g ranulomas. There is some regular pleural thickening of the left lung base with some patchy fibrosis and atelectasis. There is also a small 10% pneumothorax on the left. Today she is doing quite well. She denies any worsening shortness of breath, cough or congestion. Maintaining good O2 saturations in the 90s on room air. White count 13.0. Hemoglobin 10.4. Creatinine 0.6. Computed tomography scan of the abdomen and pelvis reveals a lower ascending colonic neoplasm spanning 7.9 cm. Right basilar pulmonary nodule. Abnormal pleural-based thickening at the left base. Continued left greater than right pleural effusions. Left side appears complicated/complex and suspicious for malignant effusion. Persistent left-sided pneumothorax. Rounded soft tissue areas in the gastric fundus difficult to exclude neoplasm. Noted abdominal aorta iliac endovascular stent. Objective - Vital Signs Vital signs: Vital Signs Temp 98.2 F 11/14/18 12:11 Pulse 79 11/14/18 12:11 Resp 17 11/14/18 12:11 BP 152/72 11/14/18 12:11 Pulse Ox 95 11/14/18 12:11 Intake & Output 11/13/18 11/14/18 11/14/18 18:59 06:59 18:59 Intake Total 1400 900 Balance 1400 900 Intake: Intake, IV Titration 800 900 Amount 0.9% NaCl with KCl 40 Meq 900 /l 1,000 ml @ 75 mls/hr IV .[id number] REGGIE Rx#: [id number] Sodium Chloride 0.9% 1, 800 000 ml @ 100 mls/hr IV . Q10H REGGIE Rx#:[id number] Oral 600 Other: Voiding Method Toilet Bedside Commode Bedside Commode Bedpan Bedpan # Voids 3 5 - Exam GENERAL EXAM: Alert, active, comfortable in no apparent distress. On room air. HEAD: Normocephalic. EYES: Normal reaction of pupils, equal size. NOSE: Clear with pink turbinates. THROAT: No erythema or exudates. NECK: No masses, no JVD. CHEST: No chest wall deformity. LUNGS: Equal air entry with few scattered rhonchi, diminished. CVS: S1 and S2 normal with no audible murmur, regular rhythm. ABDOMEN: No hepatosplenomegaly, normal bowel sounds, no guarding or rigidity. SPINE: No scoliosis or deformity SKIN: No rashes CENTRAL NERVOUS SYSTEM: No focal deficits, tone is normal in all 4 extremities. EXTREMITIES: There is no peripheral edema. No clubbing, no cyanosis. Peripheral pulses are intact. - Labs CBC & Chem 7: 11/14/18 07:58 11/14/18 07:58 Labs: Abnormal Lab Results - Last 24 Hours (Table) 11/13/18 11/13/18 11/14/18 Range/Units 07:33 07:33 07:58 WBC 12.6 H 13.0 H (3.8-10.6) k/uL Hgb 11.1 L 10.4 L (11.4-16.0) gm/dL MCH 24.7 L (25.0-35.0) pg MCHC 29.8 L 28.9 L (31.0-37.0) g/dL RDW 16.3 H 16.9 H (11.5-15.5) % Neutrophils # 10.2 H 10.4 H (1.3-7.7) k/uL Sodium (137-145) mmol/L Carbon Dioxide (22-30) mmol/L Magnesium (1.6-2.3) mg/dL Iron 16 L (50-170) ug/dL TIBC 199 L (228-460) ug/dL Iron Saturation 8.04 L (12.00-45.00) 11/14/18 Range/Units 07:58 WBC (3.8-10.6) k/uL Hgb (11.4-16.0) gm/dL MCH (25.0-35.0) pg MCHC (31.0-37.0) g/dL RDW (11.5-15.5) % Neutrophils # (1.3-7.7) k/uL Sodium 136 L (137-145) mmol/L Carbon Dioxide 33 H (22-30) mmol/L Magnesium 1.5 L (1.6-2.3) mg/dL Iron (50-170) ug/dL TIBC (228-460) ug/dL Iron Saturation (12.00-45.00) Assessment and Plan Assessment: Impression: #1 Near syncopal episode with weakness of unclear etiology. #2 Recent diagnosis of colon cancer with pending surgery. #3 Small left-sided pneumothorax, may relate to emphysematous lungs. #4 Pulmonary nodules with pleural thickening and patchy fibrosis/atelectasis. #5 Hypertension. #6 Hyperlipidemia. #7 Hypothyroidism. #8 History of atrial fibrillation. Plan: The patient was seen and evaluated by Dr. Woody. We'll obtain pulmonary function testing to determine her operative risk and evaluate the severity of her COPD and make further recommendations regarding maintenance medications. We'll optimize her medications. Will increase her activity as tolerated. We'll continue to follow. I, the cosigning physician, performed a history & physical examination of the patient. Lungs sounds with few scattered rhonchi. Maintaining good O2 saturations in the 90s on room air. I discussed the assessment and plan of care with my nurse practitioner, Tish Juan. I attest to the above note as dictated by her.
--- NOTE | 2018-11-14 13:47 | P.PN ---
Subjective 88-year-old female was admitted for syncope secondary to dehydration patient on IV fluids patient does have mild spinal bilateral pleural effusions. Patient had a colon cancer, does not appear to have any evidence of metastasis patient is undergoing colectomy tomorrow. Patient was cleared by pulmonology patient does have history of COPD. Patient's respiratory status is fairly stable at this time Constitutional: Denied any fatigue denied any fever. Cardio vascular: denied any chest pain, palpitations Gastrointestinal denied any nausea vomiting Pulmonary: Denied any shortness of breath cough Neurologic denied any new focal deficits All inpatient medications were reviewed and appropriate changes in these medications as dictated in the interval history and assessment and plan. Objective - Vital Signs Vital signs: Vital Signs Temp 98.2 F 11/14/18 12:11 Pulse 79 11/14/18 12:11 Resp 17 11/14/18 12:11 BP 152/72 11/14/18 12:11 Pulse Ox 95 11/14/18 12:11 Intake & Output 11/13/18 11/14/18 11/14/18 18:59 06:59 18:59 Intake Total 1400 900 Balance 1400 900 Intake: Intake, IV Titration 800 900 Amount 0.9% NaCl with KCl 40 Meq 900 /l 1,000 ml @ 75 mls/hr IV .[id number] REGGIE Rx#: [id number] Sodium Chloride 0.9% 1, 800 000 ml @ 100 mls/hr IV . Q10H REGGIE Rx#:[id number] Oral 600 Other: Voiding Method Toilet Bedside Commode Bedside Commode Bedpan Bedpan # Voids 3 5 - Exam PHYSICAL EXAMINATION: GENERAL: The patient is alert and oriented x3, not in any acute distress. Well developed, well nourished. HEENT: Pupils are round and equally reacting to light. EOMI. No scleral icterus. No conjunctival pallor. Normocephalic, atraumatic. No pharyngeal erythema. No thyromegaly. CARDIOVASCULAR: S1 and S2 present. No murmurs, rubs, or gallops. PULMONARY: Chest is clear to auscultation, no wheezing or crackles. ABDOMEN: Soft, nontender, nondistended, normoactive bowel sounds. No palpable organomegaly. MUSCULOSKELETAL: No joint swelling or deformity. EXTREMITIES: No cyanosis, clubbing, or pedal edema. NEUROLOGICAL: Gross neurological examination did not reveal any focal deficits. SKIN: No rashes. - Labs CBC & Chem 7: 11/14/18 07:58 11/14/18 07:58 Labs: Abnormal Lab Results - Last 24 Hours (Table) 11/13/18 11/14/18 11/14/18 Range/Units 07:33 07:58 07:58 WBC 13.0 H (3.8-10.6) k/uL Hgb 10.4 L (11.4-16.0) gm/dL MCH 24.7 L (25.0-35.0) pg MCHC 28.9 L (31.0-37.0) g/dL RDW 16.9 H (11.5-15.5) % Neutrophils # 10.4 H (1.3-7.7) k/uL Sodium 136 L (137-145) mmol/L Carbon Dioxide 33 H (22-30) mmol/L Magnesium 1.5 L (1.6-2.3) mg/dL Iron 16 L (50-170) ug/dL TIBC 199 L (228-460) ug/dL Iron Saturation 8.04 L (12.00-45.00) Assessment and Plan Plan: -Syncope secondary to intravascular depletion can you with IV fluids improved now -Colon cancer no evidence of metastatic disease patient will undergo colectomy -Hypovolemic hyponatremia improved -COPD without any acute exacerbation -Hypertension -Hyperlipidemia For above-mentioned other chronic medical problems patient will be continued on present medications
[2018-11-14] MEDS ORDERED: IPRATROPIUM-ALBUTEROL 3 ML NEB INHALATION PRN (14:57)
--- NOTE | 2018-11-14 15:00 | P.PN ---
Subjective Progress Note Date: 11/14/18 Principal diagnosis: Recent diagnosis of Colon Cancer Agreed to surgical intervention, daughter at bedside. Objective - Vital Signs Vital signs: Vital Signs Temp 98.1 F 11/14/18 05:00 Pulse 72 11/14/18 07:52 Resp 18 11/14/18 05:00 BP 125/69 11/14/18 05:00 Pulse Ox 96 11/14/18 05:00 Intake & Output 11/13/18 11/14/18 11/14/18 18:59 06:59 18:59 Intake Total 1400 900 Balance 1400 900 Intake: Intake, IV Titration 800 900 Amount 0.9% NaCl with KCl 40 Meq 900 /l 1,000 ml @ 75 mls/hr IV .[id number] REGGIE Rx#: [id number] Sodium Chloride 0.9% 1, 800 000 ml @ 100 mls/hr IV . Q10H REGGIE Rx#:[id number] Oral 600 Other: Voiding Method Toilet Bedside Commode Bedside Commode Bedpan Bedpan # Voids 3 5 - Exam General: Alert and Oriented x3, No Acute Distress Head: Normocytic, Atraumatic Neck: Supple Mouth: No Lesions, No Thrush Eyes: Non-sclerotic No Palpable cervical, supraclavicular, axillary adenopathy Heart: Regular Rate, Regular Rhythm Lungs: Clear to Ausculations, No Wheeze, No Rhonchi, Diminishe bilateral lower lobes, No increased respiratory effort noted Abdomen: Soft, Non-Distended, Non-Tended, BSx4 Extremities: No Edema, Equal Strength Neurological: No Focal Defects: No sensory or motor deficits noted Psych: Calm and cooperative - Labs CBC & Chem 7: 11/14/18 07:58 11/14/18 07:58 Labs: Abnormal Lab Results - Last 24 Hours (Table) 11/13/18 11/13/18 11/13/18 Range/Units 07:33 07:33 07:33 WBC 12.6 H (3.8-10.6) k/uL Hgb 11.1 L (11.4-16.0) gm/dL MCH (25.0-35.0) pg MCHC 29.8 L (31.0-37.0) g/dL RDW 16.3 H (11.5-15.5) % Neutrophils # 10.2 H (1.3-7.7) k/uL Sodium 136 L (137-145) mmol/L Potassium 2.9 L (3.5-5.1) mmol/L Carbon Dioxide 33 H (22-30) mmol/L Magnesium (1.6-2.3) mg/dL Iron 16 L (50-170) ug/dL TIBC 199 L (228-460) ug/dL Iron Saturation 8.04 L (12.00-45.00) AST 12 L (14-36) U/L Total Protein 5.5 L (6.3-8.2) g/dL Albumin 2.5 L (3.5-5.0) g/dL 11/14/18 11/14/18 Range/Units 07:58 07:58 WBC 13.0 H (3.8-10.6) k/uL Hgb 10.4 L (11.4-16.0) gm/dL MCH 24.7 L (25.0-35.0) pg MCHC 28.9 L (31.0-37.0) g/dL RDW 16.9 H (11.5-15.5) % Neutrophils # 10.4 H (1.3-7.7) k/uL Sodium 136 L (137-145) mmol/L Potassium (3.5-5.1) mmol/L Carbon Dioxide 33 H (22-30) mmol/L Magnesium 1.5 L (1.6-2.3) mg/dL Iron (50-170) ug/dL TIBC (228-460) ug/dL Iron Saturation (12.00-45.00) AST (14-36) U/L Total Protein (6.3-8.2) g/dL Albumin (3.5-5.0) g/dL Assessment and Plan (1) Colon cancer Current Visit: Yes Status: Acute Code(s): C18.9 - MALIGNANT NEOPLASM OF COLON, UNSPECIFIED SNOMED Code(s): 473253676 (2) Normocytic anemia Current Visit: Yes Status: Acute Code(s): D64.9 - ANEMIA, UNSPECIFIED SNOMED Code(s): 147682383 Plan: Assessment and Recommendation New Diagnosis of Adenocarcinoma of the Colon: - Colonoscopy and Pathology performed and resulted at outside hospital - Obtain a copy of diagnstic exams and pathology report - Recommendations have been for surgical intervention, plus/minus adjuvant chemotherapy. with her advanced age and co-morbidies chemotherapy is not entirely recommended, this was discussed in detail with patient and her family by Dr. Banegas on 11/12/18 in office consultation. Goals of care are quality of life, therefore a colectomy was recommendation for prevention of tumor burden complications such as further bleeding, colonic obstruction, and possibly perforation. - Dr. Weiss has been consulted - Baseline CEA today Normocytic Anemia: - Secondary to acute blood loss anemia from malignancy - Will check Iron studies today and can set patient up for parental iron in office Vasovagal, Syncopal Episode: Improved Hypokalemia: - Likely secondary to dehydration - IV hydration and replacement of electrolytes - Recheck Electrolytes and Magnesium today Plan: - General Surgery to evaluate - Iron Replacement continued - Follow-up in office post-operatively
[2018-11-14] MEDS: METOPROLOL SUCCINATE (ER) 50 MG TAB.ER.24H PO SCH (16:06)
[2018-11-14] MEDS: MAGNESIUM SULFATE-D5W PMX 1 GM in DEXTROSE/WATER 1 100ML.BAG IVPB SCH ×2 (17:06→18:36)
[2018-11-14] MEDS: IPRATROPIUM-ALBUTEROL 3 ML NEB INHALATION SCH (19:37)
[2018-11-14] MEDS: FORMOTEROL FUMARATE 20 MCG/2 ML NEBU INHALATION SCH (19:38)
[2018-11-14] MEDS: ATORVASTATIN 10 MG TAB PO SCH (20:11)
[2018-11-15] MEDS: LEVOTHYROXINE 137 MCG TAB PO SCH (04:53)
[2018-11-15] MEDS: 0.9% NACL WITH KCL 40 MEQ/L 1,000 ML IV SCH ×3 (04:54→23:09)
[2018-11-15] MEDS: BUDESONIDE 0.5 MG/2 ML NEBU INHALATION SCH ×2 (07:38→20:19)
[2018-11-15] MEDS: IPRATROPIUM-ALBUTEROL 3 ML NEB INHALATION SCH ×3 (07:39→20:20)
[2018-11-15] MEDS: FORMOTEROL FUMARATE 20 MCG/2 ML NEBU INHALATION SCH ×2 (07:39→20:20)
[2018-11-15] MEDS: FLUTICASONE 44 MCG INHALER INHALATION SCH ×2 (07:42→20:42)
[2018-11-15 08:55] LABS: Anisocytosis Slight; HCT 36.2 % (34.0-46.0); HGB 10.7 gm/dL (11.4-16.0); Hypochromasia Marked; MCH 25.5 pg (25.0-35.0); MCHC 29.7 g/dL (31.0-37.0); MCV 85.8 fL (80.0-100.0); Mean Platelet Volume 7.7; Platelet Count 366 k/uL (150-450); RBC 4.22 m/uL (3.80-5.40); RDW 16.5 % (11.5-15.5); WBC 14.9 k/uL (3.8-10.6)
[2018-11-15] MEDS: ENOXAPARIN 40 MG/0.4 ML SYRINGE SQ SCH (09:10)
[2018-11-15] MEDS: ASPIRIN 325 MG TAB PO SCH (09:10)
[2018-11-15] MEDS: FERROUS SULFATE ORAL ELIXIR 300 MG/5 ML CUP PO SCH ×2 (09:11→20:57)
[2018-11-15 09:12] LABS: ALT 13 U/L (9-52); AST 14 U/L (14-36); Albumin 2.6 g/dL (3.5-5.0); Alkaline Phosphatase 98 U/L (38-126); Anion Gap 4 mmol/L; Blood Urea Nitrogen 7 mg/dL (7-17); Calcium 8.7 mg/dL (8.4-10.2); Carbon Dioxide 29 mmol/L (22-30); Chloride 103 mmol/L (98-107); Glucose 80 mg/dL (74-99); Magnesium 1.8 mg/dL (1.6-2.3); Potassium 4.8 mmol/L (3.5-5.1); Sodium 136 mmol/L (137-145); Total Protein 5.8 g/dL (6.3-8.2)
[2018-11-15] MEDS: amLODIPine 10 MG TAB PO SCH (09:12)
[2018-11-15] MEDS ORDERED: Magnesium Replacement Protocol 1 EACH MISC MISCELLANE PRN (09:18)
--- NOTE | 2018-11-15 10:43 | P.PN ---
Subjective Progress Note Date: 11/15/18 Principal diagnosis: Weakness, near syncopal episode The patient is seen today in 11/14/2018 in follow-up on the regular medical floor. She is awake and alert in no acute distress. She is a recent diagnosis of adenocarcinoma of the colon and is expected to have surgery next week. She does have some probable underlying COPD from previous heavy tobacco use. She is on Qvar and pro-air in the outpatient setting. Chest x-ray did not show any significant abnormalities. Computed tomography scan of the chest showed no pulmonary embolism. There is some emphysematous changes and pulmonary fibrosis. There is some right lower lobe nodules that are noncalcified for possible g ranulomas. There is some regular pleural thickening of the left lung base with some patchy fibrosis and atelectasis. There is also a small 10% pneumothorax on the left. Today she is doing quite well. She denies any worsening shortness of breath, cough or congestion. Maintaining good O2 saturations in the 90s on room air. White count 13.0. Hemoglobin 10.4. Creatinine 0.6. Computed tomography scan of the abdomen and pelvis reveals a lower ascending colonic neoplasm spanning 7.9 cm. Right basilar pulmonary nodule. Abnormal pleural-based thickening at the left base. Continued left greater than right pleural effusions. Left side appears complicated/complex and suspicious for malignant effusion. Persistent left-sided pneumothorax. Rounded soft tissue areas in the gastric fundus difficult to exclude neoplasm. Noted abdominal aorta iliac endovascular stent. On 11/15/2016 patient seen in follow-up on medical surgical floor. Yesterday she completed her bedside PFT, which showed FEV1 of 0.80 L, or 36% of predicted consistent with stage III severe COPD, making this patient a high risk for postoperative complications related to her poor lung function. We added breathing treatments, Pulmicort and Perforomist, and DuoNeb nebulized treatments to optimize patient's lung function. She is awake and alert, in no acute distress, abdomen/pelvis CT was completed yesterday and lower ascending colon neoplasm measuring 7.9 cm, right basilar pulmonary nodule on patient's CT chest, and abnormal pleural-based thickening at the left base related to scarring, left greater than right pleural effusions, with the left-sided effusion having all of margin suggesting complicated/complex effusion Possibility of a malignant effusion, persistent partially visualized left-sided pneumothorax, and there was a couple of bunched up rounded soft tissue areas gastric fundus, patient is undergoing EGD by Dr. Weiss today Objective - Vital Signs Vital signs: Vital Signs Temp 98.4 F 11/15/18 05:00 Pulse 88 11/15/18 08:01 Resp 20 11/15/18 05:00 BP 138/69 11/15/18 05:00 Pulse Ox 94 L 11/15/18 07:43 Intake & Output 11/14/18 11/15/18 11/15/18 18:59 06:59 18:59 Intake Total 600 Balance 600 Intake: Intake, IV Titration 600 Amount 0.9% NaCl with KCl 40 Meq 600 /l 1,000 ml @ 75 mls/hr IV .[id number] [facility] Rx#: [id number] Other: Voiding Method Bedside Commode Bedside Commode Bedpan Bedpan # Voids 5 4 # Bowel Movements 4 - Exam GENERAL EXAM: Alert, pleasant, 88-year-old white female comfortable in no apparent distress. HEAD: Normocephalic/atraumatic. EYES: Normal reaction of pupils, equal size. Conjunctiva pink, sclera white. NOSE: Clear with pink turbinates. THROAT: No erythema or exudates. NECK: No masses, no JVD, no thyroid enlargement, no adenopathy. CHEST: No chest wall deformity. Symmetrical expansion. LUNGS: Equal air entry with no crackles, wheeze, rhonchi or dullness. CVS: Regular rate and rhythm, normal S1 and S2, no gallops, no murmurs, no rubs ABDOMEN: Soft, nontender. No hepatosplenomegaly, normal bowel sounds, no guarding or rigidity. EXTREMITIES: No clubbing, no edema, no cyanosis, 2+ pulses and upper and lower extremities. MUSCULOSKELETAL: Muscle strength and tone normal. SPINE: No scoliosis or deformity SKIN: No rashes CENTRAL NERVOUS SYSTEM: Alert and oriented -3. No focal deficits, tone is normal in all 4 extremities. PSYCHIATRIC: Alert and oriented -3. Appropriate affect. Intact judgment and insight. - Labs CBC & Chem 7: 11/15/18 08:06 11/15/18 08:06 Labs: Abnormal Lab Results - Last 24 Hours (Table) 11/13/18 11/15/18 11/15/18 Range/Units 07:33 08:06 08:06 WBC 14.9 H (3.8-10.6) k/uL Hgb 10.7 L (11.4-16.0) gm/dL MCHC 29.7 L (31.0-37.0) g/dL RDW 16.5 H (11.5-15.5) % Sodium 136 L (137-145) mmol/L Total Protein 5.8 L (6.3-8.2) g/dL Albumin 2.6 L (3.5-5.0) g/dL Methylmalonic Acid 0.67 H (<0.40) umol/L Assessment and Plan Plan: Assessment: #1 Near syncopal episode with weakness of unclear etiology. #2 Recent diagnosis of colon cancer with pending surgery. #3 Small left-sided pneumothorax, may relate to emphysematous lungs. #4 Pulmonary nodules with pleural thickening and patchy fibrosis/atelectasis. Right Basilar pulmonary nodule seen on patient's CT chest #5 Hypertension. #6 Hyperlipidemia. #7 Hypothyroidism. #8 History of atrial fibrillation. #9 severe stage III COPD, with the bedside PFT showed FEV1 of 0.80 or 36% of predicted #10 small bilateral pleural effusions, left greater than right, left-sided effusion appears to be complex including the possibility of a malignant effusion. Plan: We'll continue the breathing treatments, yesterday we added Pulmicort and Perforomist, DuoNeb breathing treatments, patient considered a high risk for surgical complications related to underlying history of severe COPD as evidenced on that side PFT. She may need the intensive care in the postoperative period. We spoke to surgery. She is undergoing EGD today investigation of the 2 lesions in the stomach seen on the CT of the abdomen. Small pleural effusion seen, left greater than the right. No plans for thoracentesis. Pleural effusions are too small, and appear to be complex. We'll continue with breathing treatments, patient still cleared for surgery tomorrow but considered high surgical risk. I performed a history & physical examination of the patient and discussed their management with my nurse practitioner, Dacia Oliva. I reviewed the nurse practitioner's note and agree with the documented findings and plan of care. Lung sounds are positive for diminished breath sounds at the bases. The findings and the impression was discussed with the patient. I attest to the documentation by the nurse practitioner. Time with Patient: Less than 30
[2018-11-15] MEDS: METOPROLOL SUCCINATE (ER) 50 MG TAB.ER.24H PO SCH (11:30)
[2018-11-15] MEDS: MAGNESIUM SULFATE-D5W PMX 1 GM in DEXTROSE/WATER 1 100ML.BAG IVPB SCH ×2 (11:30→13:24)
[2018-11-15] MEDS ORDERED: IV FLUID CONTINUATION 1,000 ML IV ONE (13:46)
[2018-11-15] MEDS ORDERED: PROPOFOL 10 MG/ML 20 ML VIAL IV ONE (13:49)
[2018-11-15] MEDS ORDERED: fentaNYL (PF) 50 MCG/ML 2 ML AMP ONE (13:49)
[2018-11-15] MEDS ORDERED: LIDOCAINE 1% INJ 10MG/ML (20 ML MDV) ONE (13:49)
--- NOTE | 2018-11-15 14:26 | P.PCN ---
Date of Procedure: 11/15/18 Procedure(s) Performed: Preoperative Dx: Gastric mass Postoperative Dx: Polypoid lesion fundus of stomach suspect lipoma Procedure: EGD with Bx Anesthesia: Sedation Endoscopist: Dr. Weiss Specimens: Gastric polypoid mass Endoscopic Procedure: The patient was on the endoscopy table in the left decubitus position. The Olympus gastroscope was inserted into the oropharynx and passed under direct visualization to the region of the distal stomach. We were unable to advance into the pylorus because of the scope passing up in the body of the stomach. Despite suctioning all the air out no forward Momentum was able to be achieved. The pylorus itself appeared widely patent. The antrum and prepyloric regions appeared normal. In the proximal stomach at the fundus there was noted to be a polypoid lesion measuring about 3-4 cm in size. The pillow test with the cold biopsy forceps suggested this was a lipoma. Biopsies took place and I thought I could see some lipomatous tissue present there. The patient also had some redundant folds in the fundus of the stomach. The etiology of that is unclear. This does match the thickening seen on recent CAT scan. No visible hiatal hernia was seen. The esophagus appeared normal. The patient was then taken to the recovery room in stable condition per anesthesia guidelines. Recommendations: No endoscopic findings of malignancy. We'll proceed with bowel prep today. Tentatively plan right colectomy tomorrow.
[2018-11-15] MEDS ORDERED: PEG 3350-NA SULF,BICARB,CL/KCL 4,000 ML BOTTLE PO ONE (15:00)
--- NOTE | 2018-11-15 16:33 | P.PN ---
Subjective 88-year-old female was admitted for syncope secondary to dehydration patient on IV fluids patient does have mild spinal bilateral pleural effusions. Patient had a colon cancer, does not appear to have any evidence of metastasis patient is undergoing colectomy tomorrow. Patient was cleared by pulmonology patient does have history of COPD. Patient's respiratory status is fairly stable at this time. 11/15/2018 Patient on the upper GI endoscopy for the polypoid lesion in the stomach which appeared to be lipoma. Patient will undergo colectomy tomorrow Constitutional: Denied any fatigue denied any fever. Cardio vascular: denied any chest pain, palpitations Gastrointestinal denied any nausea vomiting Pulmonary: Denied any shortness of breath cough Neurologic denied any new focal deficits All inpatient medications were reviewed and appropriate changes in these medications as dictated in the interval history and assessment and plan. Objective - Vital Signs Vital signs: Vital Signs Temp 98 F 11/15/18 12:19 Pulse 88 11/15/18 12:21 Resp 16 11/15/18 12:19 BP 127/59 11/15/18 12:19 Pulse Ox 92 L 11/15/18 12:19 Intake & Output 11/14/18 11/15/18 11/15/18 18:59 06:59 18:59 Intake Total 600 150 Balance 600 150 Intake: IV 150 Intake, IV Titration 600 Amount 0.9% NaCl with KCl 40 Meq 600 /l 1,000 ml @ 75 mls/hr IV .[id number] [facility] Rx#: [id number] Other: Voiding Method Bedside Commode Bedside Commode Bedpan Bedpan # Voids 5 4 2 # Bowel Movements 4 - Exam PHYSICAL EXAMINATION: GENERAL: The patient is alert and oriented x3, not in any acute distress. Well developed, well nourished. HEENT: Pupils are round and equally reacting to light. EOMI. No scleral icterus. No conjunctival pallor. Normocephalic, atraumatic. No pharyngeal erythema. No thyromegaly. CARDIOVASCULAR: S1 and S2 present. No murmurs, rubs, or gallops. PULMONARY: Chest is clear to auscultation, no wheezing or crackles. ABDOMEN: Soft, nontender, nondistended, normoactive bowel sounds. No palpable organomegaly. MUSCULOSKELETAL: No joint swelling or deformity. EXTREMITIES: No cyanosis, clubbing, or pedal edema. NEUROLOGICAL: Gross neurological examination did not reveal any focal deficits. SKIN: No rashes. - Labs CBC & Chem 7: 11/15/18 08:06 11/15/18 08:06 Labs: Abnormal Lab Results - Last 24 Hours (Table) 11/13/18 11/15/18 11/15/18 Range/Units 07:33 08:06 08:06 WBC 14.9 H (3.8-10.6) k/uL Hgb 10.7 L (11.4-16.0) gm/dL MCHC 29.7 L (31.0-37.0) g/dL RDW 16.5 H (11.5-15.5) % Sodium 136 L (137-145) mmol/L Total Protein 5.8 L (6.3-8.2) g/dL Albumin 2.6 L (3.5-5.0) g/dL Methylmalonic Acid 0.67 H (<0.40) umol/L Assessment and Plan Plan: -Syncope secondary to intravascular depletion can you with IV fluids improved now -Colon cancer no evidence of metastatic disease patient will undergo colectomy -Hypovolemic hyponatremia improved -COPD without any acute exacerbation -Hypertension -Hyperlipidemia For above-mentioned other chronic medical problems patient will be continued on present medications
[2018-11-15] MEDS: ATORVASTATIN 10 MG TAB PO SCH (20:58)
[2018-11-16] MEDS: LEVOTHYROXINE 137 MCG TAB PO SCH (06:14)
[2018-11-16] MEDS: amLODIPine 10 MG TAB PO SCH (07:41)
[2018-11-16] MEDS: FERROUS SULFATE ORAL ELIXIR 300 MG/5 ML CUP PO SCH ×2 (07:41→21:36)
[2018-11-16] MEDS: ENOXAPARIN 40 MG/0.4 ML SYRINGE SQ SCH (07:41)
[2018-11-16] MEDS: ASPIRIN 325 MG TAB PO SCH (07:41)
[2018-11-16 07:48] LABS: Anisocytosis Slight; HCT 35.5 % (34.0-46.0); HGB 10.6 gm/dL (11.4-16.0); Hypochromasia Marked; MCH 25.3 pg (25.0-35.0); MCHC 29.8 g/dL (31.0-37.0); MCV 84.9 fL (80.0-100.0); Mean Platelet Volume 7.4; Platelet Count 405 k/uL (150-450); RBC 4.19 m/uL (3.80-5.40); RDW 17.1 % (11.5-15.5); WBC 12.4 k/uL (3.8-10.6)
[2018-11-16] MEDS: BUDESONIDE 0.5 MG/2 ML NEBU INHALATION SCH ×2 (07:56→19:47)
[2018-11-16 07:57] LABS: Anion Gap 4 mmol/L; Blood Urea Nitrogen 7 mg/dL (7-17); Calcium 8.6 mg/dL (8.4-10.2); Carbon Dioxide 28 mmol/L (22-30); Chloride 104 mmol/L (98-107); Glucose 73 mg/dL (74-99); Magnesium 1.8 mg/dL (1.6-2.3); Potassium 4.4 mmol/L (3.5-5.1); Sodium 136 mmol/L (137-145)
[2018-11-16] MEDS: FORMOTEROL FUMARATE 20 MCG/2 ML NEBU INHALATION SCH ×2 (07:57→19:44)
[2018-11-16] MEDS: IPRATROPIUM-ALBUTEROL 3 ML NEB INHALATION SCH ×3 (07:57→19:45)
[2018-11-16] MEDS ORDERED: metroNIDAZOLE-NS PMX 500 MG in SALINE 1 100ML.BAG IVPB STA (08:01)
[2018-11-16] MEDS ORDERED: LIDOCAINE 1% INJ 10MG/ML (20 ML MDV) ONE (08:02)
[2018-11-16] MEDS ORDERED: PHENYLEPHRINE-0.9% NACL SYG 1 MG/10 ML SYRINGE ONE (08:02)
[2018-11-16] MEDS ORDERED: PROPOFOL 10 MG/ML 20 ML VIAL IV ONE (08:02)
[2018-11-16] MEDS ORDERED: LACTATED RINGERS 1,000 ML IV ONE ×2 (08:02→09:30)
[2018-11-16] MEDS ORDERED: SUCCINYLCHOLINE CHLORIDE 100 MG/5 ML SYR IV ONE (08:02)
[2018-11-16] MEDS ORDERED: fentaNYL (PF) 50 MCG/ML 2 ML AMP ONE (08:02)
[2018-11-16] MEDS ORDERED: GLYCOPYRROLATE 0.2 MG/ML 2 ML VIAL ONE (08:02)
[2018-11-16] MEDS ORDERED: NEOSTIGMINE 1 MG/ML 10 ML VIAL ONE (08:02)
[2018-11-16] MEDS ORDERED: MIDAZOLAM 2 MG/2 ML VIAL ONE (08:02)
[2018-11-16] MEDS ORDERED: LIDOCAINE 2%-EPI 1:100,000 20 ML VIAL ONE (08:02)
[2018-11-16] MEDS ORDERED: ROCURONIUM BROMIDE 10 MG/ML 10 ML VIAL IV ONE (08:02)
[2018-11-16] MEDS ORDERED: ePHEDrine SULFATE/0.9% NACL/PF 50 MG/5 ML SYRINGE IV ONE (08:02)
[2018-11-16] MEDS ORDERED: ceFAZolin 1,000 MG VIAL IVPB ONE (08:30)
--- NOTE | 2018-11-16 10:49 | P.OP ---
Date of Procedure: 11/16/18 Procedure(s) Performed: PREOPERATIVE DIAGNOSIS: Right-sided colon cancer POSTOPERATIVE DIAGNOSIS: Same PROCEDURE: Right colectomy SURGEON: Isela EBL: 50 mL ANESTHESIA: General COMPLICATIONS: None OPERATIVE PROCEDURE: Patient place in the operative table in the supine position. The patient was placed under general anesthesia. The abdomen was prepped and draped in usual sterile fashion. A vertical incision was made through the patient's previous laparotomy incision site. Dissection through the saphenous fat took place using large cautery. The fascia was divided sharply. The previous fascial closure was performed using interrupted Ethibond sutures. The patient had small bowel densely adherent to the fascia along the entire length of the incision and extending out from the midline approximately 10 cm. The bowel was essentially frozen to itself. Painstakingly we lysed the adhesions so that we could visualize the right side of the abdomen. A large mass was identified. Further dissection revealed a loop of small bowel that was adherent to the tumor. This was mobilized away from the mass and a large hole within the mid ascending colon at the site of the tumor was identified. This was quickly suctioned. The bowel was able to be mobilized further off of the mesentery of the cecum and ascending colon in addition to the proximal transverse colon. The terminal ileum was mobilized. Careful dissection of the retroperitoneum took place mobilizing the tumor proximally and medially. The course of the ureter was avoided. The duodenum was well visualized during the entire procedure. Once we had full mobilization of the tumor segment the bowel was divided in the mid transverse colon using a linear 75 stapler. The terminal ileum was likewise divided. The mesentery of the right colon was divided using 0 silk ties and the LigaSure device. Specimen was passed off. An additional portion of tumor was adherent to the abdominal wall anterior laterally and this was excised using electrocautery and sent separately. Clinically there was small areas of residual neoplasm along the entire right gutter. The bowel that had been adherent to the tumor was inspected. There did appear to be neoplastic tissue there as well. I was concerned this would soon turn into a bowel obstruction. This small section of bowel was mobilized by lysing the adhesions and resected. The bowel was divided proximal and distal to the neoplastic segment using a linear 75 stapler. The mesentery was divided using the LigaSure device. A obxn-cn-[id number] anastomosis took place by removing the antimesenteric portion of the staple line and the linear stapler was fired along the antimesenteric border. The remaining defect was closed using a TX 60 stapler. A 3-0 GI silk stitch was placed at the crotch. Portion of the TX 60 stapler line was imbricated. In a similar fashion the ileocolonic anastomosis was created. A jsmc-tr-zpdq anastomosis took place by removing the antimesenteric portion of the staple line and the linear stapler was fired along the antimesenteric border. The remaining defect was closed using a TX 60 stapler. A 3-0 GI silk stitch was placed at the crotch. Portion of the TX 60 stapler line was again imbricated using interrupted 3-0 GI silk Lambert sutures. The abdomen was irrigated. No bleeding or further stool was seen. I could not visualize the stomach given the dense adhesions. A nasogastric tube was placed by anesthesia however. The midline fascia was then closed using 3 sections of double-stranded #1 PDS sutures. The skin was closed using rahat. A sterile dressing and an abdominal binder was applied. DISPOSITION: Stable to recovery room
[2018-11-16] MEDS ORDERED: fentaNYL (PF) 50 MCG/ML 2 ML AMP IVP ONE ×4 (10:52→11:53)
[2018-11-16] MEDS: FLUTICASONE 44 MCG INHALER INHALATION SCH ×2 (11:00→20:35)
--- NOTE | 2018-11-16 11:18 | XR ---
EXAMINATION TYPE: XR chest 1V portable DATE OF EXAM: 11/16/2018 HISTORY: evaluate pneumothorax postop. REFERENCE: Previous study dated 11/12/2018. FINDINGS: Is been previous epigastric surgery. NG tube is in place. Its tip overlies the stomach. I do not see evidence of a pneumothorax. There is left basilar airspace disease and a small amount of right basilar airspace disease. There are small, bilateral effusions, greater on the left than the r ight. There is subcutaneous emphysema on the left. Heart size is within normal limits. IMPRESSION: 1. NO EVIDENCE OF PNEUMOTHORAX. 2. MILD SUBCUTANEOUS EMPHYSEMA. 3. LEFT BASILAR AIRSPACE DISEASE. 4. SMALL LEFT EFFUSION AND SMALLER RIGHT EFFUSION.
[2018-11-16] MEDS ORDERED: ROPIVACAINE 250 MG, HYDROMORPHONE (PF) 5 MG in SODIUM CHLORIDE 0.9% 200 ML EPIDURAL PRN (11:38)
[2018-11-16] MEDS ORDERED: NALOXONE 0.4 MG/ML 1 ML VIAL IV PRN (11:38)
[2018-11-16 12:23] LABS: Glucose,Whole Blood 97 mg/dL (75-99)
--- NOTE | 2018-11-16 12:45 | PN ---
PROGRESS NOTE DATE OF SERVICE: November 16, 2018 This is an 88-year-old female that we did a preop clearance on. She went for a right a right colectomy. About 8 cm of bowel was removed. The patient did not need a colostomy. She had an epidural placed. She is on O2 at 2 L by nasal cannula. The patient based on spirometry had quite severe COPD. Her FEV1 was 0.8 L or 36% of predicted. We did explain to her that she was at high risk. We also explained that to the surgeon. The patient presented initially with near syncope. She has history of colon cancer recently discovered. She also has a history of small left-sided pneumothorax and pulmonary nodules which appear to be granulomas in the right lung. In addition, she has a history of hypertension, hyperlipidemia, hypothyroidism, atrial fibrillation, and bilateral small pleural effusions. PHYSICAL EXAMINATION: VITAL SIGNS: Vital signs are reviewed. Temperature is 98.5, heart rate mid 70s. Respiratory rate 16, blood pressure 140/67, 2 L saturation 95%. Appears in no acute distress. HEENT examination is grossly unremarkable. Nasal O2 is noted. Mucous membranes are moist. Neck is supple. Full range of motion. No adenopathy. Cardiovascular examination reveals a regular rhythm and rate. S1, S2 normal. No S3, S4, murmur. Lungs reveal diminished breath sounds throughout. No wheezes, rhonchi, or crackles. Abdomen is soft. No bowel sounds. Extremities are intact. No cyanosis, clubbing, or edema. Skin without rash. Neurologic examination is brief but nonfocal. LABS: Reviewed. White count 12.4, hemoglobin 10.6, hematocrit 35.5, platelet count 45,000. Sodium 136, potassium 4.4, chloride 104, CO2 of 28. BUN and creatinine were 7 and 0.64. Anion gap is 4. Microbiology is negative. Chest x-ray from this morning shows evidence of mild subcutaneous emphysema. There is no evidence of pneumothorax. There is left basilar airspace disease. ASSESSMENT: 1. Postoperative day number 0 status post a right colectomy. 2. History of recently discovered colon cancer. 3. Near syncopal episode of unclear etiology. 4. Small left-sided pneumothorax, resolved on today's x-ray. 5. Pulmonary nodule, right base, which may be a granuloma. 6. History of benign essential hypertension. 7. Hyperlipidemia. 8. Hypothyroidism. 9. History of atrial fibrillation. 10.Severe stage III chronic obstructive pulmonary disease with an FEV1 that is 0.8 L and FEV 1% at 36. 11.Small bilateral effusions. PLAN: The patient did well during surgery. She will be coming back to the ICU. No additional recommendations are made. We will continue to watch carefully. We will recommend breathing treatments, deep breathing, coughing and clearing of secretions and hourly use of incentive spirometer. No additional recommendations are made. MMODL / IJN: [id number] /
[2018-11-16] MEDS: ONDANSETRON 4 MG/2 ML VIAL IVP PRN (13:23)
[2018-11-16] MEDS: METOPROLOL SUCCINATE (ER) 50 MG TAB.ER.24H PO SCH (13:59)
[2018-11-16] MEDS: PIPERACILLIN-TAZOBACTAM 3.375 GM in SODIUM CHLORIDE 0.9% 100 ML IVPB SCH ×2 (15:36→23:08)
[2018-11-16] MEDS: D5-0.45% NACL WITH KCL 20MEQ/L 1,000 ML IV SCH (16:18)
[2018-11-16] MEDS: SODIUM CHLORIDE 0.9% 250 ML IV SCH ×2 (16:36→18:06)
[2018-11-16] MEDS: 0.9% NACL WITH KCL 40 MEQ/L 1,000 ML IV SCH (16:58)
[2018-11-16] MEDS ORDERED: SODIUM CHLORIDE 0.9% 250 ML IV SCH (18:00)
[2018-11-16] MEDS ORDERED: SODIUM CHLORIDE 0.9% 250 ML IV ONE (18:05)
[2018-11-16] MEDS: ATORVASTATIN 10 MG TAB PO SCH (21:35)
--- NOTE | 2018-11-16 22:33 | P.PN ---
Subjective Progress Note Date: 11/16/18 Principal diagnosis: Syncope Ms. Cardona is an 88-year-old female with a past medical history of colon cancer, hypertension, hyperlipidemia, COPD admitted for syncope secondary to dehydration. Patient's symptoms improved with IV fluids. Patient has colon cancer without evidence of metastasis so she underwent colectomy by Dr. Jain today. Currently the patient is lying comfortably in the bed and getting her breathing treatments. She complains of mild abdominal soreness. Patient still has epidural in place. She has Montana's catheter in place. She denies having any fever chills or rigors. No chest pain or palpitations. No cough or difficulty in breathing. Active Medications Albuterol/Ipratropium (Duoneb 0.5 Mg-3 Mg/3 Ml Soln) 3 ml INHALATION RT-TID [facility] Last Admin: 11/16/18 19:45 Dose: 3 ml Documented by: Albuterol/Ipratropium (Duoneb 0.5 Mg-3 Mg/3 Ml Soln) 3 ml INHALATION RT-Q2H PRN PRN Reason: Shortness Of Breath Or Wheezing Amlodipine Besylate (Norvasc) 10 mg PO DAILY [facility] Last Admin: 11/16/18 07:41 Dose: Not Given Documented by: Aspirin (Aspirin) 325 mg PO DAILY [facility] Last Admin: 11/16/18 07:41 Dose: Not Given Documented by: Atorvastatin Calcium (Lipitor) 10 mg PO HS [facility] Last Admin: 11/15/18 20:58 Dose: 10 mg Documented by: Budesonide (Pulmicort) 1 mg INHALATION RT-BID [facility] Last Admin: 11/16/18 19:47 Dose: 1 mg Documented by: Enoxaparin Sodium (Lovenox) 40 mg SQ DAILY [facility] Last Admin: 11/16/18 07:41 Dose: Not Given Documented by: Ferrous Sulfate (Feosol) 125 mg PO BID [facility] Last Admin: 11/16/18 07:41 Dose: Not Given Documented by: Fluticasone Propionate (Flovent 44 Mcg Inhaler) 1 puff INHALATION RT-BID [facility] Last Admin: 11/16/18 11:00 Dose: Not Given Documented by: Formoterol Fumarate (Perforomist) 20 mcg INHALATION RT-BID [facility] Last Admin: 11/16/18 19:44 Dose: 20 mcg Documented by: Piperacillin Sod/Tazobactam (Sod 3.375 gm/ Sodium Chloride) 100 mls @ 25 mls/hr IVPB Q8HR [facility] Last Admin: 11/16/18 15:36 Dose: 25 mls/hr Documented by: Ropivacaine 250 mg/Hydromorphone HCl 5 mg/ Sodium Chloride 250 mls @ 0 mls/hr EPIDURAL .Q0M PRN; Protocol PRN Reason: Pain Control Potassium Chloride/Dextrose/Sod Cl (D5%-1/2ns-Kcl 20 Meq/L Iv Solution) 1,000 mls @ 100 mls/hr IV .Q10H [facility] Last Admin: 11/16/18 16:18 Dose: 100 mls/hr Documented by: Levothyroxine Sodium (Synthroid) 137 mcg PO MoTuWeThFrSa@0630 [facility] Last Admin: 11/16/18 06:14 Dose: 137 mcg Documented by: Levothyroxine Sodium (Synthroid) 274 mcg PO Gunderson@0630 [facility] Metoprolol Succinate (Toprol Xl) 50 mg PO DAILY@1200 [facility] Last Admin: 11/16/18 13:59 Dose: Not Given Documented by: Miscellaneous Information (Potassium Per Protocol) 1 each MISCELLANE DAILY PRN; Protocol PRN Reason: Per Protocol Miscellaneous Information (Magnesium Per Protocol) 1 each MISCELLANE DAILY PRN; Protocol PRN Reason: Per Protocol Naloxone HCl (Narcan) 0.2 mg IV Q2M PRN PRN Reason: Opioid Reversal Nitroglycerin (Nitrostat) 0.4 mg SUBLINGUAL Q5M PRN PRN Reason: Chest Pain Ondansetron HCl (Zofran) 4 mg IVP Q8HR PRN PRN Reason: Nausea And Vomiting Last Admin: 11/16/18 13:23 Dose: 4 mg Documented by: Objective - Vital Signs Vital signs: Vital Signs Temp 98.3 F 11/16/18 16:00 Pulse 61 11/16/18 19:00 Resp 8 L 11/16/18 19:00 BP 112/63 11/16/18 19:00 Pulse Ox 99 11/16/18 19:00 Intake & Output 11/16/18 11/16/18 11/17/18 06:59 18:59 06:59 Intake Total 900 2930 105 Output Total 510 50 Balance 900 2420 55 Intake: IV 2900 100 D5-0.45% NaCl with KCl 600 100 20Meq/l 1,000 ml @ 100 mls/hr IV .Q10H [facility] Rx#: [id number] Sodium Chloride 0.9% 250 500 ml @ 999 mls/hr IV .Q16M [facility] Rx#:[id number] Intake, IV Titration 900 30 5 Amount 0.9% NaCl with KCl 40 Meq 900 /l 1,000 ml @ 75 mls/hr IV .[id number] [facility] Rx#: [id number] Ropivacaine 250 mg 30 5 Hydromorphone (Pf) 5 mg In Sodium Chloride 0.9% 200 ml @ Per Protocol EPIDURAL .Q0M [facility]N Rx#: [id number] Oral 0 Output: Gastric Drainage 50 Urine 410 50 Estimated Blood Loss 50 Other: Voiding Method Bedside Commode Indwelling Catheter Bedpan - Exam GENERAL: The patient is alert and oriented x3, not in any acute distress. Well developed, well nourished. HEENT: No pallor. No icterus CARDIOVASCULAR: S1 and S2 present. No murmurs, rubs, or gallops. PULMONARY: Chest is clear to auscultation, no wheezing or crackles. ABDOMEN: Soft, nontender. Abdominal binder in place. Montana's catheter in place. MUSCULOSKELETAL: No joint swelling or deformity. EXTREMITIES: No cyanosis, clubbing. Mild pitting edema bilaterally. NEUROLOGICAL: Gross neurological examination did not reveal any focal deficits. SKIN: No rashes. - Labs CBC & Chem 7: 11/16/18 07:13 11/16/18 07:13 Labs: Abnormal Lab Results - Last 24 Hours (Table) 11/16/18 11/16/18 Range/Units 07:13 07:13 WBC 12.4 H (3.8-10.6) k/uL Hgb 10.6 L (11.4-16.0) gm/dL MCHC 29.8 L (31.0-37.0) g/dL RDW 17.1 H (11.5-15.5) % Sodium 136 L (137-145) mmol/L Glucose 73 L (74-99) mg/dL Assessment and Plan Assessment: ASSESSMENT Colon Cancer - status post right colectomy done today Syncope resolved Hypovolemic hyponatremia resolved COPD not in exacerbation Hypertension Hyperlipidemia DJD PLAN: Patient just had the procedure done, she is on epidural for pain management. Continue with breathing treatments for her COPD. Continue with DVT prophylaxis. Continue with the current medication regimen. Further recommendations depending on the progress of the patient.
[2018-11-17] MEDS: D5-0.45% NACL WITH KCL 20MEQ/L 1,000 ML IV SCH ×2 (00:45→11:06)
[2018-11-17] MEDS ORDERED: SODIUM CHLORIDE 0.9% 500 ML 500 ML IV ONE ×3 (05:56→14:53)
[2018-11-17] MEDS: LEVOTHYROXINE 137 MCG TAB PO SCH (06:08)
[2018-11-17 06:19] LABS: Anisocytosis Slight; Basophils % (A) 0 %; Eosinophils % (A) 0 %; HCT 33.8 % (34.0-46.0); HGB 9.6 gm/dL (11.4-16.0); Hypochromasia Marked; Lymphocytes # (A) 0.8 k/uL (1.0-4.8); Lymphocytes % (A) 5 %; MCH 24.7 pg (25.0-35.0); MCHC 28.3 g/dL (31.0-37.0); MCV 87.1 fL (80.0-100.0); Mean Platelet Volume 6.9; Monocytes # (A) 0.4 k/uL (0-1.0); Monocytes % (A) 3 %; Neutrophils # (A) 13.1 k/uL (1.3-7.7); Neutrophils % (A) 91 %; Platelet Count 253 k/uL (150-450); RBC 3.88 m/uL (3.80-5.40); WBC 14.4 k/uL (3.8-10.6)
[2018-11-17 06:31] LABS: Calcium 8.3 mg/dL (8.4-10.2); Magnesium 1.7 mg/dL (1.6-2.3); Phosphorus 3.9 mg/dL (2.5-4.5)
[2018-11-17 07:09] LABS: Potassium 4.9 mmol/L (3.5-5.1)
[2018-11-17] MEDS: MAGNESIUM SULFATE-D5W PMX 1 GM in DEXTROSE/WATER 1 100ML.BAG IVPB SCH ×2 (07:13→09:07)
--- NOTE | 2018-11-17 07:20 | XR ---
EXAMINATION TYPE: XR chest 1V portable DATE OF EXAM: 11/17/2018 HISTORY: adventitious lung sounds. REFERENCE: Previous study dated 11/16/2018. FINDINGS: There is an NG tube in place. Its tip is coiled in the stomach. There is improvement in the amount of subcutaneous emphysema on the left. There is continuing left ba silar airspace disease. There is developing right basilar airspace disease. There is a left-sided eff usion. IMPRESSION: 1. LEFT BASILAR AIRSPACE DISEASE. 2. DEVELOPING RIGHT BASILAR AIRSPACE DISEASE. 3. LEFT-SIDED EFFUSION.
--- NOTE | 2018-11-17 08:08 | P.PN ---
Subjective Progress Note Date: 11/17/18 Principal diagnosis: Right colon mass Patient did fairly well overnight. She is stable in the ICU currently. No shortness of breath currently. Urine output is improving. Labs reviewed. Complaints of mild discomfort. Epidural functioning. Objective - Vital Signs Vital signs: Vital Signs Temp 98.4 F 11/17/18 00:00 Pulse 90 11/17/18 07:00 Resp 23 11/17/18 07:00 BP 114/55 11/17/18 07:00 Pulse Ox 94 L 11/17/18 07:00 Intake & Output 11/16/18 11/17/18 11/17/18 18:59 06:59 18:59 Intake Total 2930 1305 100 Output Total 510 390 150 Balance 2420 915 -50 Weight 67.9 kg Intake: IV 2900 1300 100 D5-0.45% NaCl with KCl 600 1200 100 20Meq/l 1,000 ml @ 100 mls/hr IV .Q10H [facility] Rx#: [id number] Piperacillin-Tazobactam 3 100 .375 gm In Sodium Chloride 0.9% 100 ml @ 25 mls/hr IVPB Q8HR [facility] Rx# :[id number] Sodium Chloride 0.9% 250 500 ml @ 999 mls/hr IV .Q16M [facility] Rx#:[id number] Intake, IV Titration 30 5 Amount Ropivacaine 250 mg 30 5 Hydromorphone (Pf) 5 mg In Sodium Chloride 0.9% 200 ml @ Per Protocol EPIDURAL .Q0M PRN Rx#: [id number] Output: Gastric Drainage 50 100 Urine 410 390 50 Estimated Blood Loss 50 Other: Voiding Method Indwelling Catheter Indwelling Catheter - Exam Abdomen: Soft, mild diffuse tenderness, dressing clean and dry, minimal d istention - Labs CBC & Chem 7: 11/17/18 05:34 11/17/18 05:34 Labs: Abnormal Lab Results - Last 24 Hours (Table) 11/17/18 11/17/18 Range/Units 05:34 05:34 WBC 14.4 H (3.8-10.6) k/uL Hgb 9.6 L (11.4-16.0) gm/dL Hct 33.8 L (34.0-46.0) % MCH 24.7 L (25.0-35.0) pg MCHC 28.3 L (31.0-37.0) g/dL RDW 17.0 H (11.5-15.5) % Neutrophils # 13.1 H (1.3-7.7) k/uL Lymphocytes # 0.8 L (1.0-4.8) k/uL Sodium 135 L (137-145) mmol/L Glucose 129 H (74-99) mg/dL Calcium 8.3 L (8.4-10.2) mg/dL Assessment and Plan (1) Colon cancer Narrative/Plan: Patient doing fairly well postoperatively. Continue nothing by mouth with nasogastric tube to suction. Continue pulmonary toilet. May transfer out of ICU when cleared by pulmonary. Continue antibiotics. Current Visit: Yes Status: Acute Code(s): C18.9 - MALIGNANT NEOPLASM OF COLON, UNSPECIFIED SNOMED Code(s): 959036826
[2018-11-17] MEDS: BUDESONIDE 0.5 MG/2 ML NEBU INHALATION SCH ×2 (08:56→19:32)
[2018-11-17] MEDS: IPRATROPIUM-ALBUTEROL 3 ML NEB INHALATION SCH ×3 (08:56→19:28)
[2018-11-17] MEDS: FORMOTEROL FUMARATE 20 MCG/2 ML NEBU INHALATION SCH ×2 (08:56→19:28)
[2018-11-17] MEDS: PIPERACILLIN-TAZOBACTAM 3.375 GM in SODIUM CHLORIDE 0.9% 100 ML IVPB SCH ×2 (09:06→15:49)
[2018-11-17] MEDS: amLODIPine 10 MG TAB PO SCH (09:11)
[2018-11-17] MEDS: ASPIRIN 325 MG TAB PO SCH (09:11)
[2018-11-17] MEDS: ENOXAPARIN 40 MG/0.4 ML SYRINGE SQ SCH (09:11)
[2018-11-17] MEDS: FERROUS SULFATE ORAL ELIXIR 300 MG/5 ML CUP PO SCH ×2 (09:11→20:15)
[2018-11-17] MEDS: FLUTICASONE 44 MCG INHALER INHALATION SCH (09:17)
--- NOTE | 2018-11-17 10:18 | P.PN ---
Subjective Progress Note Date: 11/17/18 Principal diagnosis: Weakness, near syncopal episode The patient is seen today in 11/14/2018 in follow-up on the regular medical floor. She is awake and alert in no acute distress. She is a recent diagnosis of adenocarcinoma of the colon and is expected to have surgery next week. She does have some probable underlying COPD from previous heavy tobacco use. She is on Qvar and pro-air in the outpatient setting. Chest x-ray did not show any significant abnormalities. Computed tomography scan of the chest showed no pulmonary embolism. There is some emphysematous changes and pulmonary fibrosis. There is some right lower lobe nodules that are noncalcified for possible g ranulomas. There is some regular pleural thickening of the left lung base with some patchy fibrosis and atelectasis. There is also a small 10% pneumothorax on the left. Today she is doing quite well. She denies any worsening shortness of breath, cough or congestion. Maintaining good O2 saturations in the 90s on room air. White count 13.0. Hemoglobin 10.4. Creatinine 0.6. Computed tomography scan of the abdomen and pelvis reveals a lower ascending colonic neoplasm spanning 7.9 cm. Right basilar pulmonary nodule. Abnormal pleural-based thickening at the left base. Continued left greater than right pleural effusions. Left side appears complicated/complex and suspicious for malignant effusion. Persistent left-sided pneumothorax. Rounded soft tissue areas in the gastric fundus difficult to exclude neoplasm. Noted abdominal aorta iliac endovascular stent. On 11/15/2016 patient seen in follow-up on medical surgical floor. Yesterday she completed her bedside PFT, which showed FEV1 of 0.80 L, or 36% of predicted consistent with stage III severe COPD, making this patient a high risk for postoperative complications related to her poor lung function. We added breathing treatments, Pulmicort and Perforomist, and DuoNeb nebulized treatments to optimize patient's lung function. She is awake and alert, in no acute distress, abdomen/pelvis CT was completed yesterday and lower ascending colon neoplasm measuring 7.9 cm, right basilar pulmonary nodule on patient's CT chest, and abnormal pleural-based thickening at the left base related to scarring, left greater than right pleural effusions, with the left-sided effusion having all of margin suggesting complicated/complex effusion Possibility of a malignant effusion, persistent partially visualized left-sided pneumothorax, and there was a couple of bunched up rounded soft tissue areas gastric fundus, patient is undergoing EGD by Dr. Weiss today 11/17/2018 patient seen in follow-up in the intensive care unit, this is postop day 1, status post right colectomy with the extensive lysis of adhesions with the end to end anastomosis. Patient is awake and alert, she is in the intensive care unit, in no acute distress, currently on 2 L of oxygen per nasal cannula, with a pulse ox of 96%, she is afebrile, hemodynamically stable, IVs D5 half- normal saline with the 20th potassium at a rate of 100 ML per hour, patient has a epidural in place which is infusing at 5 ML per hour. She is awake and alert, no acute distress, lung sounds are clear, she is in sinus rhythm, no vasoactive drips, NG tube is in place to low intermittent suction, patient is tolerating ice chips, today's chest x-ray shows left basilar airspace disease, and the right basilar airspace disease that is developing, with the left-sided pleural effusion. Doing very well postoperatively, antibiotic coverage in the form of Zosyn and Flagyl Objective - Vital Signs Vital signs: Vital Signs Temp 97.4 F L 11/17/18 08:00 Pulse 82 11/17/18 09:19 Resp 19 11/17/18 09:00 BP 106/61 11/17/18 09:00 Pulse Ox 96 11/17/18 09:00 Intake & Output 11/16/18 11/17/18 11/17/18 18:59 06:59 18:59 Intake Total 2930 1305 600 Output Total 510 390 200 Balance 2420 915 400 Weight 67.9 kg Intake: IV 2900 1300 300 D5-0.45% NaCl with KCl 600 1200 300 20Meq/l 1,000 ml @ 100 mls/hr IV .Q10H [facility] Rx#: [id number] Piperacillin-Tazobactam 3 100 .375 gm In Sodium Chloride 0.9% 100 ml @ 25 mls/hr IVPB Q8HR [facility] Rx# :[id number] Sodium Chloride 0.9% 250 500 ml @ 999 mls/hr IV .Q16M [facility] Rx#:[id number] Intake, IV Titration 30 5 300 Amount Magnesium Sulfate-D5w Pmx 200 1 gm In Dextrose/Water 1 100ml.bag @ 100 mls/hr IVPB Q1H [facility] Rx#: [id number] Piperacillin-Tazobactam 3 100 .375 gm In Sodium Chloride 0.9% 100 ml @ 25 mls/hr IVPB Q8HR [facility] Rx# :[id number] Ropivacaine 250 mg 30 5 Hydromorphone (Pf) 5 mg In Sodium Chloride 0.9% 200 ml @ Per Protocol EPIDURAL .Q0M [facility] Rx#: [id number] Output: Gastric Drainage 50 100 Urine 410 390 100 Estimated Blood Loss 50 Other: Voiding Method Indwelling Catheter Indwelling Catheter Indwelling Catheter - Exam GENERAL EXAM: Alert, pleasant, 88-year-old white female on 2 L of oxygen, with NG tube in place to low intermittent suction, comfortable in no apparent distress. HEAD: Normocephalic/atraumatic. EYES: Normal reaction of pupils, equal size. Conjunctiva pink, sclera white. NOSE: Clear with pink turbinates. THROAT: No erythema or exudates. NECK: No masses, no JVD, no thyroid enlargement, no adenopathy. CHEST: No chest wall deformity. Symmetrical expansion. LUNGS: Equal air entry with no crackles, wheeze, rhonchi or dullness. CVS: Regular rate and rhythm, normal S1 and S2, no gallops, no murmurs, no rubs ABDOMEN: Soft, nontender. No hepatosplenomegaly, normal bowel sounds, no guarding or rigidity. Her concern is covered with a surgical dressing, dressings clean and dry, abdomen is with minimal distention. Mild diffuse tenderness. EXTREMITIES: No clubbing, no edema, no cyanosis, 2+ pulses and upper and lower extremities. MUSCULOSKELETAL: Muscle strength and tone normal. SPINE: No scoliosis or deformity SKIN: No rashes CENTRAL NERVOUS SYSTEM: Alert and oriented -3. No focal deficits, tone is normal in all 4 extremities. PSYCHIATRIC: Alert and oriented -3. Appropriate affect. Intact judgment and insight. - Labs CBC & Chem 7: 11/17/18 05:34 11/17/18 05:34 Labs: Abnormal Lab Results - Last 24 Hours (Table) 11/17/18 11/17/18 Range/Units 05:34 05:34 WBC 14.4 H (3.8-10.6) k/uL Hgb 9.6 L (11.4-16.0) gm/dL Hct 33.8 L (34.0-46.0) % MCH 24.7 L (25.0-35.0) pg MCHC 28.3 L (31.0-37.0) g/dL RDW 17.0 H (11.5-15.5) % Neutrophils # 13.1 H (1.3-7.7) k/uL Lymphocytes # 0.8 L (1.0-4.8) k/uL Sodium 135 L (137-145) mmol/L Glucose 129 H (74-99) mg/dL Calcium 8.3 L (8.4-10.2) mg/dL Assessment and Plan Plan: Assessment: #1. Recent diagnosis of colon cancer, status post right colectomy, and extensive lysis of adhesions, postoperative day 1 #2 Small left-sided pneumothorax, may relate to emphysematous lungs. #3 Pulmonary nodules with pleural thickening and patchy fibrosis/atelectasis. Right Basilar pulmonary nodule seen on patient's CT chest, may be related to underlying granuloma #4 Hypertension. #5 Hyperlipidemia. #6 Hypothyroidism. #7 History of atrial fibrillation. #8 severe stage III COPD, with the bedside PFT showed FEV1 of 0.80 or 36% of predicted #9 small bilateral pleural effusions, left greater than right Plan: Patient is doing well in the postoperative., She is awake and alert, in no acute distress, her pain is controlled, she is on epidural infusion, provided incentive spirometry, encouraged to deep breathe and cough, remains nothing by mouth with the exception of ice chips, vital signs are stable, no fever or chills, she is covered with a combination of Flagyl and Zosyn, today's chest x- ray has been reviewed, and shows bilateral pleural effusions, bibasilar airspace disease. Clinical patient is stable, doing well, we'll continue to follow. I performed a history & physical examination of the patient and discussed their management with my nurse practitioner, Dacia Oliva. I reviewed the nurse practitioner's note and agree with the documented findings and plan of care. L naomi sounds are positive for diminished breath sounds at the bases. The findings and the impression was discussed with the patient. I attest to the documentation by the nurse practitioner. Time with Patient: Less than 30
[2018-11-17] MEDS ORDERED: SODIUM CHLORIDE 0.9% 250 ML IV ONE (11:01)
[2018-11-17] MEDS: DEXTROSE 5%-0.45% NACL 1,000 ML IV SCH ×2 (11:11→21:22)
[2018-11-17] MEDS: METOPROLOL SUCCINATE (ER) 50 MG TAB.ER.24H PO SCH (11:56)
[2018-11-17] MEDS: metroNIDAZOLE-NS PMX 500 MG in SALINE 1 100ML.BAG IVPB SCH (15:50)
--- NOTE | 2018-11-17 17:20 | P.PN ---
Subjective Progress Note Date: 11/17/18 Principal diagnosis: Syncope Ms. Cardona is an 88-year-old female with a past medical history of colon cancer, hypertension, hyperlipidemia, COPD admitted for syncope secondary to dehydration. Patient's symptoms improved with IV fluids. Patient has colon cancer without evidence of metastasis so she underwent colectomy by Dr. Jain yesterday. On 11/17/18 - patient is lying comfortably in the bed and getting her breathing treatments. She complains of mild abdominal soreness. Patient still has epidural in place. She has Montana's catheter in place. She denies having any fever chills or rigors. No chest pain or palpitations. No cough or difficulty in breathing. As per the nursing staff report the patient's urine output has been low for the past 24 hours. She has been getting intermittent boluses of IV normal saline, to which she did respond. She is on Zosyn and Flagyl. Patient had a chest x-ray done this morning showing left-sided effusion and right basilar air space disease. Active Medications Albuterol/Ipratropium (Duoneb 0.5 Mg-3 Mg/3 Ml Soln) 3 ml INHALATION RT-TID [facility] Last Admin: 11/17/18 13:15 Dose: 3 ml Documented by: Albuterol/Ipratropium (Duoneb 0.5 Mg-3 Mg/3 Ml Soln) 3 ml INHALATION RT-Q2H PRN PRN Reason: Shortness Of Breath Or Wheezing Amlodipine Besylate (Norvasc) 10 mg PO DAILY [facility] Last Admin: 11/17/18 09:11 Dose: Not Given Documented by: Aspirin (Aspirin) 325 mg PO DAILY [facility] Last Admin: 11/17/18 09:11 Dose: Not Given Documented by: Atorvastatin Calcium (Lipitor) 10 mg PO HS [facility] Last Admin: 11/16/18 21:35 Dose: Not Given Documented by: Budesonide (Pulmicort) 1 mg INHALATION RT-BID [facility] Last Admin: 11/17/18 08:56 Dose: 1 mg Documented by: Enoxaparin Sodium (Lovenox) 40 mg SQ DAILY [facility] Last Admin: 11/17/18 09:11 Dose: 40 mg Documented by: Ferrous Sulfate (Feosol) 125 mg PO BID [facility] Last Admin: 11/17/18 09:11 Dose: Not Given Documented by: Formoterol Fumarate (Perforomist) 20 mcg INHALATION RT-BID [facility] Last Admin: 11/17/18 08:56 Dose: 20 mcg Documented by: Piperacillin Sod/Tazobactam (Sod 3.375 gm/ Sodium Chloride) 100 mls @ 25 mls/hr IVPB Q8HR [facility] Last Admin: 11/17/18 15:49 Dose: 25 mls/hr Documented by: Ropivacaine 250 mg/Hydromorphone HCl 5 mg/ Sodium Chloride 250 mls @ 0 mls/hr EPIDURAL .Q0M PRN; Protocol PRN Reason: Pain Control Metronidazole 500 mg/ IV (Solution) 100 mls @ 100 mls/hr IVPB Q8HR [facility] Last Admin: 11/17/18 15:50 Dose: 100 mls/hr Documented by: Dextrose/Sodium Chloride (Dextrose 5%-1/2ns Iv Soln) 1,000 mls @ 100 mls/hr IV .Q10H [facility] Last Admin: 11/17/18 11:11 Dose: 100 mls/hr Documented by: Levothyroxine Sodium (Synthroid) 137 mcg PO MoTuWeThFrSa@0630 [facility] Last Admin: 11/16/18 06:14 Dose: 137 mcg Documented by: Levothyroxine Sodium (Synthroid) 274 mcg PO Gunderson@0630 [facility] Last Admin: 11/17/18 06:08 Dose: Not Given Documented by: Metoprolol Succinate (Toprol Xl) 50 mg PO DAILY@1200 [facility] Last Admin: 11/17/18 11:56 Dose: Not Given Documented by: Miscellaneous Information (Potassium Per Protocol) 1 each MISCELLANE DAILY PRN; Protocol PRN Reason: Per Protocol Miscellaneous Information (Magnesium Per Protocol) 1 each MISCELLANE DAILY PRN; Protocol PRN Reason: Per Protocol Naloxone HCl (Narcan) 0.2 mg IV Q2M PRN PRN Reason: Opioid Reversal Nitroglycerin (Nitrostat) 0.4 mg SUBLINGUAL Q5M PRN PRN Reason: Chest Pain Ondansetron HCl (Zofran) 4 mg IVP Q8HR PRN PRN Reason: Nausea And Vomiting Last Admin: 11/16/18 13:23 Dose: 4 mg Documented by: Objective - Vital Signs Vital signs: Vital Signs Temp 97.6 F 11/17/18 16:00 Pulse 84 11/17/18 16:00 Resp 16 11/17/18 16:00 BP 119/62 11/17/18 16:00 Pulse Ox 95 11/17/18 16:00 Intake & Output 11/16/18 11/17/18 11/17/18 18:59 06:59 18:59 Intake Total 2930 1305 2500 Output Total 510 390 330 Balance 2420 915 2170 Weight 67.9 kg Intake: IV 2900 1300 1700 D5-0.45% NaCl with KCl 600 1200 400 20Meq/l 1,000 ml @ 100 mls/hr IV .Q10H [facility] Rx#: [id number] Dextrose 5%-0.45% NaCl 1, 600 000 ml @ 100 mls/hr IV . Q10H [facility] Rx#:[id number] Piperacillin-Tazobactam 3 100 100 .375 gm In Sodium Chloride 0.9% 100 ml @ 25 mls/hr IVPB Q8HR [facility] Rx# :[id number] Sodium Chloride 0.9% 250 500 ml @ 999 mls/hr IV .Q16M [facility] Rx#:[id number] Sodium Chloride 0.9% 250 500 ml @ 999 mls/hr IV .Q16M [facility] Rx#:[id number] metroNIDAZOLE-NS PMX 500 100 mg In Saline 1 100ml.bag @ 100 mls/hr IVPB Q8HR [facility] Rx#:[id number] Intake, IV Titration 30 5 800 Amount Magnesium Sulfate-D5w Pmx 200 1 gm In Dextrose/Water 1 100ml.bag @ 100 mls/hr IVPB Q1H [facility] Rx#: [id number] Piperacillin-Tazobactam 3 100 .375 gm In Sodium Chloride 0.9% 100 ml @ 25 mls/hr IVPB Q8HR [facility] Rx# :[id number] Ropivacaine 250 mg 30 5 Hydromorphone (Pf) 5 mg In Sodium Chloride 0.9% 200 ml @ Per Protocol EPIDURAL .Q0M [facility] Rx#: [id number] Sodium Chloride 0.9% 500 500 ml 500 ml @ 999 mls/hr IV .Q31M [facility] Rx#:[id number] Output: Gastric Drainage 50 100 Urine 410 390 230 Estimated Blood Loss 50 Other: Voiding Method Indwelling Catheter Indwelling Catheter Indwelling Catheter - Exam GENERAL: The patient is alert and oriented x3, not in any acute distress. Well developed, well nourished. HEENT: No pallor. No icterus CARDIOVASCULAR: S1 and S2 present. No murmurs, rubs, or gallops. PULMONARY: Chest is clear to auscultation, no wheezing or crackles. ABDOMEN: Soft, non distended. Mild diffuse tenderness. Abdominal binder in place. Montana's catheter in place. MUSCULOSKELETAL: No joint swelling or deformity. EXTREMITIES: No cyanosis, clubbing. Mild pitting edema bilaterally. NEUROLOGICAL: Gross neurological examination did not reveal any focal deficits. SKIN: No rashes. - Labs CBC & Chem 7: 11/17/18 05:34 11/17/18 05:34 Labs: Abnormal Lab Results - Last 24 Hours (Table) 11/17/18 11/17/18 Range/Units 05:34 05:34 WBC 14.4 H (3.8-10.6) k/uL Hgb 9.6 L (11.4-16.0) gm/dL Hct 33.8 L (34.0-46.0) % MCH 24.7 L (25.0-35.0) pg MCHC 28.3 L (31.0-37.0) g/dL RDW 17.0 H (11.5-15.5) % Neutrophils # 13.1 H (1.3-7.7) k/uL Lymphocytes # 0.8 L (1.0-4.8) k/uL Sodium 135 L (137-145) mmol/L Glucose 129 H (74-99) mg/dL Calcium 8.3 L (8.4-10.2) mg/dL Assessment and Plan Assessment: ASSESSMENT Colon Cancer - status post right colectomy -postoperative day 1 Syncope resolved Hypovolemic hyponatremia resolved COPD not in exacerbation Hypertension Hyperlipidemia DJD PLAN: Patient has been having decreased urinary output for the past 24 hours. She has been getting fluid boluses of normal saline to which she is responding. No other signs of sepsis. She is to be continued on Zosyn and Flagyl, postop. Continue with breathing treatments for her COPD. Continue with DVT prophylaxis. Continue with the current medication regimen. Further recommendations depending on the progress of the patient.
[2018-11-17] MEDS: ATORVASTATIN 10 MG TAB PO SCH (20:15)
--- NOTE | 2018-11-17 20:40 | P.PN ---
Progress Note - Text 11/17 8783 88-year-old female status post exploratory lap by Dr. Weiss. Patient has an epidural catheter was solution running at 5 mL an hour with a VAS of 0, no complaint of nausea vomiting or pruritus. Plan to continue epidural infusion
[2018-11-17] MEDS ORDERED: SODIUM CHLORIDE 0.9% 500 ML IV ONE (22:44)
[2018-11-17] MEDS: BUDESONIDE 1 MG/2 ML NEBU INHALATION SCH (22:58)
[2018-11-18] MEDS: PIPERACILLIN-TAZOBACTAM 3.375 GM in SODIUM CHLORIDE 0.9% 100 ML IVPB SCH ×3 (00:42→16:39)
[2018-11-18] MEDS: metroNIDAZOLE-NS PMX 500 MG in SALINE 1 100ML.BAG IVPB SCH ×3 (00:43→16:38)
[2018-11-18] MEDS: LEVOTHYROXINE 137 MCG TAB PO SCH (05:26)
[2018-11-18 05:30] LABS: Anisocytosis Slight; Basophils % (A) 0 %; Eosinophils # (A) 0.1 k/uL (0-0.7); Eosinophils % (A) 0 %; HCT 32.7 % (34.0-46.0); HGB 9.1 gm/dL (11.4-16.0); Hypochromasia Marked; Lymphocytes # (A) 0.6 k/uL (1.0-4.8); Lymphocytes % (A) 4 %; MCV 89.3 fL (80.0-100.0); Mean Platelet Volume 8.2; Monocytes # (A) 0.4 k/uL (0-1.0); Monocytes % (A) 3 %; Neutrophils # (A) 14.5 k/uL (1.3-7.7); Neutrophils % (A) 92 %; Platelet Count 238 k/uL (150-450); RBC 3.66 m/uL (3.80-5.40); RDW 16.9 % (11.5-15.5); WBC 15.8 k/uL (3.8-10.6)
[2018-11-18 05:44] LABS: Calcium 8.2 mg/dL (8.4-10.2); Phosphorus 3.8 mg/dL (2.5-4.5); Potassium 4.4 mmol/L (3.5-5.1)
[2018-11-18] MEDS: DEXTROSE 5%-0.45% NACL 1,000 ML IV SCH ×3 (06:43→22:27)
--- NOTE | 2018-11-18 07:12 | P.PN ---
Progress Note - Text 11/18 658am 88-year-old female status post exploratory lap by Dr. Weiss. has an epidural catheter for postop pain control with solution running at 5 mL an hour with a VAS of 0, no motor or sensory deficit noted, dressing clean dry and intact. Continue epidural for 1 more day
--- NOTE | 2018-11-18 07:18 | XR ---
EXAMINATION TYPE: XR chest 1V portable DATE OF EXAM: 11/18/2018 COMPARISON: 11/17/2018 HISTORY: Shortness of breath TECHNIQUE: Single frontal view of the chest is obtained. FINDINGS: Bilateral airspace disease and pleural effusion. No pneumothorax. NG tube noted and there is postsurgical change in the upper abdomen hypertrophic and degenerative changes spine. Arthropathy shoulders. No pneumothorax. IMPRESSION: 1. Bilateral consolidation and pleural effusion appear similar to the prior exam. Correlate for pneum onia or atelectasis. Underlying venous congestion not excluded. 2. faint lucency below the right hemidiaphragm. Could not exclude a small amount free intra-abdominal air. Report called to ICU.
[2018-11-18] MEDS: IPRATROPIUM-ALBUTEROL 3 ML NEB INHALATION SCH ×3 (07:33→19:50)
[2018-11-18] MEDS: BUDESONIDE 1 MG/2 ML NEBU INHALATION SCH ×2 (07:33→19:50)
[2018-11-18] MEDS: FORMOTEROL FUMARATE 20 MCG/2 ML NEBU INHALATION SCH ×2 (07:33→19:50)
[2018-11-18] MEDS: ENOXAPARIN 40 MG/0.4 ML SYRINGE SQ SCH (08:17)
[2018-11-18] MEDS: ASPIRIN 325 MG TAB PO SCH (08:18)
[2018-11-18] MEDS: FERROUS SULFATE ORAL ELIXIR 300 MG/5 ML CUP PO SCH ×2 (08:18→22:26)
[2018-11-18] MEDS: amLODIPine 10 MG TAB PO SCH (08:18)
--- NOTE | 2018-11-18 11:40 | ECHOF ---
Referral Reason:left ventricular function MEASUREMENTS -------- HEIGHT: 170.2 cm WEIGHT: 71.7 kg BP: 116/65 RVIDd: 2.9 cm (< 3.3) IVSd: 1.2 cm (0.6 - 1.1) LVIDd: 4.8 cm (3.9 - 5.3) LVPWd: 1.2 cm (0.6 - 1.1) IVSs: 1.7 cm LVIDs: 2.8 cm LVPWs: 1.2 cm LA Diam: 3.6 cm (2.7 - 3.8) LAESV Index (A-L): 18.45 ml/m Ao Diam: 3.1 cm (2.0 - 3.7) AV Cusp: 1.4 cm (1.5 - 2.6) MV EXCURSION: 13.991 mm (> 18.000) MV EF SLOPE: 39 mm/s (70 - 150) EPSS: 0.8 cm AV maxP.16 mmHg AV meanP.02 mmHg RAP: 5.00 mmHg RVSP: 43.50 mmHg FINDINGS -------- Atrial fibrillation. This was a technically adequate study. The left ventricular size is normal. There is borderline concentric left ventricular hypertrophy. Overall left ventricular systolic function is normal with, an EF between 65 - 70 %. The right ventricle is normal in size. Normal LA size by volume 22+/-6 ml/m2. The right atrium is normal in size. Interatrial and interventricular septum intact. There is moderate aortic valve sclerosis. There is mild aortic stenosis present. Peak/mean gradie nt across the Aortic Valve is 26.16mmHg / 13.02mmHg. The mitral valve leaflets are moderately thickened. Severe mitral annular calcification present. Mild mitral regurgitation is present. Mild tricuspid regurgitation present. There is mild pulmonary hypertension. The right ventricular systolic pressure, as measured by Doppler, is 43.50mmHg. Trace/mild (physiologic) pulmonic regurgitation. The aortic root size is normal. Subcostals views not available due to surgery There is a small, generalized pericardial effusion present. CONCLUSIONS -------- 1. Atrial fibrillation. 2. This was a technically adequate study. 3. The left ventricular size is normal. 4. There is borderline concentric left ventricular hypertrophy. 5. Overall left ventricular systolic function is normal with, an EF between 65 - 70 %. 6. The right ventricle is normal in size. 7. Normal LA size by volume 22+/-6 ml/m2. 8. The right atrium is normal in size. 9. Interatrial and interventricular septum intact. 10. There is moderate aortic valve sclerosis. 11. There is mild aortic stenosis present. 12. Peak/mean gradient across the Aortic Valve is 26.16mmHg / 13.02mmHg. 13. The mitral valve leaflets are moderately thickened. 14. Severe mitral annular calcification present. 15. Mild mitral regurgitation is present. 16. Mild tricuspid regurgitation present. 17. There is mild pulmonary hypertension. 18. The right ventricular systolic pressure, as measured by Doppler, is 43.50mmHg. 19. Trace/mild (physiologic) pulmonic regurgitation. 20. The aortic root size is normal. 21. Subcostals views not available due to surgery SPONGE FISHERMAN: Angelina Goel RDCS
--- NOTE | 2018-11-18 11:50 | P.PN ---
Subjective Progress Note Date: 11/18/18 Principal diagnosis: Colon adenocarcinoma, status post resection. Patient is doing fairly well postprocedure, she is using incentive spirometry, denies nausea, unrealistic abdominal pain, she does have active bowel sounds but denies a bowel movement, unsure if she is passing gas. Objective - Vital Signs Vital signs: Vital Signs Temp 97.4 F L 11/18/18 08:00 Pulse 108 H 11/18/18 09:00 Resp 11 L 11/18/18 09:00 BP 108/61 11/18/18 09:00 Pulse Ox 94 L 11/18/18 09:00 Intake & Output 11/17/18 11/18/18 11/18/18 18:59 06:59 18:59 Intake Total 2700 2075 575 Output Total 360 437 80 Balance 2340 1638 495 Weight 71.8 kg 71.8 kg Intake: IV 1900 2075 575 D5-0.45% NaCl with KCl 400 20Meq/l 1,000 ml @ 100 mls/hr IV .Q10H [facility] Rx#: [id number] Dextrose 5%-0.45% NaCl 1, 800 1375 375 000 ml @ 125 mls/hr IV . Q8H [facility] Rx#:[id number] Piperacillin-Tazobactam 3 100 100 100 .375 gm In Sodium Chloride 0.9% 100 ml @ 25 mls/hr IVPB Q8HR [facility] Rx# :[id number] Sodium Chloride 0.9% 250 500 ml @ 999 mls/hr IV .Q16M [facility] Rx#:[id number] Sodium Chloride 0.9% 500 500 ml 500 ml @ 999 mls/hr IV .Q31M [facility] Rx#:[id number] metroNIDAZOLE-NS PMX 500 100 100 100 mg In Saline 1 100ml.bag @ 100 mls/hr IVPB Q8HR [facility] Rx#:[id number] Intake, IV Titration 800 Amount Magnesium Sulfate-D5w Pmx 200 1 gm In Dextrose/Water 1 100ml.bag @ 100 mls/hr IVPB Q1H [facility] Rx#: [id number] Piperacillin-Tazobactam 3 100 .375 gm In Sodium Chloride 0.9% 100 ml @ 25 mls/hr IVPB Q8HR [facility] Rx# :[id number] Sodium Chloride 0.9% 500 500 ml 500 ml @ 999 mls/hr IV .Q31M [facility] Rx#:[id number] Output: Gastric Drainage 100 120 Urine 260 317 80 Other: Voiding Method Indwelling Catheter Indwelling Catheter Indwelling Catheter - Constitutional General appearance: Present: average body habitus, cooperative, no acute distress - EENT Eyes: Present: anicteric sclerae, EOMI ENT: Present: hearing grossly normal - Respiratory Respiratory: bilateral: CTA - Cardiovascular Rhythm: regular Heart sounds: normal: S1, S2 Abnormal Heart Sounds: Present: systolic murmur - Peripheral edema leg Peripheral Edema: bilateral: None - Gastrointestinal Gastrointestinal Comment(s): Bowel sounds noted, abdominal binder in place General gastrointestinal: Present: soft - Neurologic Neurologic: Present: CNII-XII intact - Musculoskeletal Musculoskeletal: Present: generalized weakness, strength equal bilaterally - Psychiatric Psychiatric: Present: A&O x's 3, appropriate affect, intact judgment & insight - Labs CBC & Chem 7: 11/18/18 04:43 11/18/18 04:43 Labs: Abnormal Lab Results - Last 24 Hours (Table) 11/18/18 11/18/18 Range/Units 04:43 04:43 WBC 15.8 H (3.8-10.6) k/uL RBC 3.66 L (3.80-5.40) m/uL Hgb 9.1 L (11.4-16.0) gm/dL Hct 32.7 L (34.0-46.0) % MCHC 28.0 L (31.0-37.0) g/dL RDW 16.9 H (11.5-15.5) % Neutrophils # 14.5 H (1.3-7.7) k/uL Lymphocytes # 0.6 L (1.0-4.8) k/uL Sodium 135 L (137-145) mmol/L Glucose 108 H (74-99) mg/dL Calcium 8.2 L (8.4-10.2) mg/dL Assessment and Plan Plan: Colon adenocarcinoma: Patient is status post resection. Case was discussed with the Critical Care team. Case will be reviewed with primary oncologist Dr. Banegas. Have asked nursing to schedule a family meeting for discussion of diagnosis, prognosis and treatment options.
--- NOTE | 2018-11-18 12:06 | P.PN ---
<Lakshmi Burnett Evelin - Last Filed: 11/18/18 11:46> Subjective Progress Note Date: 11/18/18 CHIEF COMPLAINT: syncope, cancer HISTORY OF PRESENT ILLNESS: Patient is status post right colectomy and extensive lysis of adhesions performed on 11/16/2018. POD #2. Patient examined at the bedside in the ICU. Patient reports her pain is tolerable. Epidural is infusing. Patient unsure if she is passing flatus. No BM. NG to LIS. Afebrile. HR 80-108s. BP stable. WBC 15.8. Hemoglobin 9.1. PHYSICAL EXAM: VITAL SIGNS: Reviewed. GENERAL: Well-developed in no acute distress. HEENT: NG to LIS. No sclera icterus. Extraocular movements grossly intact. Moist buccal mucosa. Head is atraumatic, normocephalic. ABDOMEN: Soft. Nondistended. Minimal tenderness. Hypoactive bowel sounds. NEUROLOGIC: Alert and oriented. Cranial nerves II through XII grossly intact. ASSESSMENT: 1. Adenocarcinoma of the colon, s/p right colectomy and extensive lysis of adhesions PLAN: 1. NPO except medications. Continue NG tube 2. No plans for TPN at this time 3. Continue epidural and saldivar. DC POD #3 4. Activity as tolerated 5. Incentive spirometry 6. Monitor WBC. Repeat in AM. continue antibiotics Nurse practitioner note has been reviewed by physician. Signing provider agrees with the documented findings, assessment, and plan of care. Objective - Vital Signs Vital signs: Vital Signs Temp 97.4 F L 11/18/18 08:00 Pulse 108 H 11/18/18 09:00 Resp 11 L 11/18/18 09:00 BP 108/61 11/18/18 09:00 Pulse Ox 94 L 11/18/18 09:00 Intake & Output 11/17/18 11/18/18 11/18/18 18:59 06:59 18:59 Intake Total 2700 2075 575 Output Total 360 437 80 Balance 2340 1638 495 Weight 71.8 kg 71.8 kg Intake: IV 1900 2075 575 D5-0.45% NaCl with KCl 400 20Meq/l 1,000 ml @ 100 mls/hr IV .Q10H [facility] Rx#: [id number] Dextrose 5%-0.45% NaCl 1, 800 1375 375 000 ml @ 125 mls/hr IV . Q8H [facility] Rx#:[id number] Piperacillin-Tazobactam 3 100 100 100 .375 gm In Sodium Chloride 0.9% 100 ml @ 25 mls/hr IVPB Q8HR [facility] Rx# :[id number] Sodium Chloride 0.9% 250 500 ml @ 999 mls/hr IV .Q16M [facility] Rx#:[id number] Sodium Chloride 0.9% 500 500 ml 500 ml @ 999 mls/hr IV .Q31M [facility] Rx#:[id number] metroNIDAZOLE-NS PMX 500 100 100 100 mg In Saline 1 100ml.bag @ 100 mls/hr IVPB Q8HR [facility] Rx#:[id number] Intake, IV Titration 800 Amount Magnesium Sulfate-D5w Pmx 200 1 gm In Dextrose/Water 1 100ml.bag @ 100 mls/hr IVPB Q1H [facility] Rx#: [id number] Piperacillin-Tazobactam 3 100 .375 gm In Sodium Chloride 0.9% 100 ml @ 25 mls/hr IVPB Q8HR [facility] Rx# :[id number] Sodium Chloride 0.9% 500 500 ml 500 ml @ 999 mls/hr IV .Q31M [facility] Rx#:[id number] Output: Gastric Drainage 100 120 Urine 260 317 80 Other: Voiding Method Indwelling Catheter Indwelling Catheter Indwelling Catheter - Labs CBC & Chem 7: 11/18/18 04:43 11/18/18 04:43 Labs: Abnormal Lab Results - Last 24 Hours (Table) 11/18/18 11/18/18 Range/Units 04:43 04:43 WBC 15.8 H (3.8-10.6) k/uL RBC 3.66 L (3.80-5.40) m/uL Hgb 9.1 L (11.4-16.0) gm/dL Hct 32.7 L (34.0-46.0) % MCHC 28.0 L (31.0-37.0) g/dL RDW 16.9 H (11.5-15.5) % Neutrophils # 14.5 H (1.3-7.7) k/uL Lymphocytes # 0.6 L (1.0-4.8) k/uL Sodium 135 L (137-145) mmol/L Glucose 108 H (74-99) mg/dL Calcium 8.2 L (8.4-10.2) mg/dL <Everett Weiss - Last Filed: 11/18/18 13:01> Subjective As above. Patient doing better than yesterday. Her cough seems stronger. No bowel movement thus far. Mild distention on exam. Keep nasogastric tube to suction for now. Objective - Vital Signs Vital signs: Vital Signs Temp 97.4 F L 11/18/18 08:00 Pulse 83 11/18/18 12:43 Resp 18 11/18/18 12:00 BP 102/77 11/18/18 12:00 Pulse Ox 97 11/18/18 12:00 Intake & Output 11/17/18 11/18/18 11/18/18 18:59 06:59 18:59 Intake Total 2700 2075 950 Output Total 360 437 145 Balance 2340 1638 805 Weight 71.8 kg 71.8 kg Intake: IV 1900 2075 950 D5-0.45% NaCl with KCl 400 20Meq/l 1,000 ml @ 100 mls/hr IV .Q10H [facility] Rx#: [id number] Dextrose 5%-0.45% NaCl 1, 800 1375 750 000 ml @ 125 mls/hr IV . Q8H [facility] Rx#:[id number] Piperacillin-Tazobactam 3 100 100 100 .375 gm In Sodium Chloride 0.9% 100 ml @ 25 mls/hr IVPB Q8HR [facility] Rx# :[id number] Sodium Chloride 0.9% 250 500 ml @ 999 mls/hr IV .Q16M [facility] Rx#:[id number] Sodium Chloride 0.9% 500 500 ml 500 ml @ 999 mls/hr IV .Q31M [facility] Rx#:[id number] metroNIDAZOLE-NS PMX 500 100 100 100 mg In Saline 1 100ml.bag @ 100 mls/hr IVPB Q8HR [facility] Rx#:[id number] Intake, IV Titration 800 Amount Magnesium Sulfate-D5w Pmx 200 1 gm In Dextrose/Water 1 100ml.bag @ 100 mls/hr IVPB Q1H [facility] Rx#: [id number] Piperacillin-Tazobactam 3 100 .375 gm In Sodium Chloride 0.9% 100 ml @ 25 mls/hr IVPB Q8HR [facility] Rx# :[id number] Sodium Chloride 0.9% 500 500 ml 500 ml @ 999 mls/hr IV .Q31M [facility] Rx#:[id number] Output: Gastric Drainage 100 120 Urine 260 317 145 Other: Voiding Method Indwelling Catheter Indwelling Catheter Indwelling Catheter - Labs CBC & Chem 7: 11/18/18 04:43 11/18/18 04:43 Labs: Abnormal Lab Results - Last 24 Hours (Table) 11/18/18 11/18/18 Range/Units 04:43 04:43 WBC 15.8 H (3.8-10.6) k/uL RBC 3.66 L (3.80-5.40) m/uL Hgb 9.1 L (11.4-16.0) gm/dL Hct 32.7 L (34.0-46.0) % MCHC 28.0 L (31.0-37.0) g/dL RDW 16.9 H (11.5-15.5) % Neutrophils # 14.5 H (1.3-7.7) k/uL Lymphocytes # 0.6 L (1.0-4.8) k/uL Sodium 135 L (137-145) mmol/L Glucose 108 H (74-99) mg/dL Calcium 8.2 L (8.4-10.2) mg/dL Assessment and Plan (1) Colon cancer Current Visit: Yes Status: Acute Code(s): C18.9 - MALIGNANT NEOPLASM OF COLON, UNSPECIFIED SNOMED Code(s): 751950467
[2018-11-18] MEDS: METOPROLOL SUCCINATE (ER) 50 MG TAB.ER.24H PO SCH (14:17)
--- NOTE | 2018-11-18 15:22 | P.PN ---
Subjective Progress Note Date: 11/18/18 The patient is seen today in 11/14/2018 in follow-up on the regular medical floor. She is awake and alert in no acute distress. She is a recent diagnosis of adenocarcinoma of the colon and is expected to have surgery next week. She does have some probable underlying COPD from previous heavy tobacco use. She is on Qvar and pro-air in the outpatient setting. Chest x-ray did not show any significant abnormalities. Computed tomography scan of the chest showed no pulmonary embolism. There is some emphysematous changes and pulmonary fibrosis. There is some right lower lobe nodules that are noncalcified for possible granulomas. There is some regular pleural thickening of the left lung base with some patchy fibrosis and atelectasis. There is also a small 10% pneumothorax on the left. Today she is doing quite well. She denies any worsening shortness of breath, cough or congestion. Maintaining good O2 saturations in the 90s on room air. White count 13.0. Hemoglobin 10.4. Creatinine 0.6. Computed tomography scan of the abdomen and pelvis reveals a lower ascending colonic neoplasm sp anning 7.9 cm. Right basilar pulmonary nodule. Abnormal pleural-based thickening at the left base. Continued left greater than right pleural effusions. Left side appears complicated/complex and suspicious for malignant effusion. Persistent left-sided pneumothorax. Rounded soft tissue areas in the gastric fundus difficult to exclude neoplasm. Noted abdominal aorta iliac endovascular stent. On 11/15/2016 patient seen in follow-up on medical surgical floor. Yesterday she completed her bedside PFT, which showed FEV1 of 0.80 L, or 36% of predicted consistent with stage III severe COPD, making this patient a high risk for postoperative complications related to her poor lung function. We added breathing treatments, Pulmicort and Perforomist, and DuoNeb nebulized treatments to optimize patient's lung function. She is awake and alert, in no acute distress, abdomen/pelvis CT was completed yesterday and lower ascending colon neoplasm measuring 7.9 cm, right basilar pulmonary nodule on patient's CT chest, and abnormal pleural-based thickening at the left base related to scarring, left greater than right pleural effusions, with the left-sided effusion having all of margin suggesting complicated/complex effusion Possibility of a malignant effusion, persistent partially visualized left-sided pneumothorax, and there was a couple of bunched up rounded soft tissue areas gastric fundus, patient is undergoing EGD by Dr. Weiss today 11/17/2018 patient seen in follow-up in the intensive care unit, this is postop day 1, status post right colectomy with the extensive lysis of adhesions with the end to end anastomosis. Patient is awake and alert, she is in the intensive care unit, in no acute distress, currently on 2 L of oxygen per nasal cannula, with a pulse ox of 96%, she is afebrile, hemodynamically stable, IVs D5 half- normal saline with the 20th potassium at a rate of 100 ML per hour, patient has a epidural in place which is infusing at 5 ML per hour. She is awake and alert, no acute distress, lung sounds are clear, she is in sinus rhythm, no vasoactive drips, NG tube is in place to low intermittent suction, patient is tolerating ice chips, today's chest x-ray shows left basilar airspace disease, and the right basilar airspace disease that is developing, with the left-sided pleural effusion. Doing very well postoperatively, antibiotic coverage in the form of Zosyn and Flagyl On 11/18/2018 I'm seeing this patient for a follow-up. She is awake and alert and she is comfortable and she is postop day #2 following a right colectomy and lysis of adhesions and aunt and anastomosis. NG tube is in place. Output is in the order of minimal and the patient has sluggish bowel sounds without any bowel activity is. As such the patient has still been MPO. The patient is on IV fluids with D5 normal saline at the rate of 125 mL an hour. Epidural bupivacaine and Dilaudid is being used for pain control. No altered mentation is no hypotension. No cough no sputum production. No signs of any respiratory distress. Antibiotic coverage is in the form of Flagyl and Zosyn. White cell count of 15.8. Renal function is stable with a creatinine of 0.9. No other sig nificant events overnight. She is using incentive spirometer. She is passing gas. Objective - Vital Signs Vital signs: Vital Signs Temp 97.6 F 11/18/18 12:00 Pulse 83 11/18/18 14:00 Resp 18 11/18/18 14:00 BP 121/63 11/18/18 14:00 Pulse Ox 92 L 11/18/18 14:00 Intake & Output 11/17/18 11/18/18 11/18/18 18:59 06:59 18:59 Intake Total 2700 2075 1200 Output Total 360 437 210 Balance 2340 1638 990 Weight 71.8 kg 71.8 kg Intake: IV 1900 2074 1200 D5-0.45% NaCl with KCl 400 20Meq/l 1,000 ml @ 100 mls/hr IV .Q10H [facility] Rx#: [id number] Dextrose 5%-0.45% NaCl 1, 800 1375 1000 000 ml @ 125 mls/hr IV . Q8H [facility] Rx#:[id number] Piperacillin-Tazobactam 3 100 100 100 .375 gm In Sodium Chloride 0.9% 100 ml @ 25 mls/hr IVPB Q8HR [facility] Rx# :[id number] Sodium Chloride 0.9% 250 500 ml @ 999 mls/hr IV .Q16M [facility] Rx#:[id number] Sodium Chloride 0.9% 500 500 ml 500 ml @ 999 mls/hr IV .Q31M [facility] Rx#:[id number] metroNIDAZOLE-NS PMX 500 100 100 100 mg In Saline 1 100ml.bag @ 100 mls/hr IVPB Q8HR [facility] Rx#:[id number] Intake, IV Titration 800 Amount Magnesium Sulfate-D5w Pmx 200 1 gm In Dextrose/Water 1 100ml.bag @ 100 mls/hr IVPB Q1H [facility] Rx#: [id number] Piperacillin-Tazobactam 3 100 .375 gm In Sodium Chloride 0.9% 100 ml @ 25 mls/hr IVPB Q8HR [facility] Rx# :[id number] Sodium Chloride 0.9% 500 500 ml 500 ml @ 999 mls/hr IV .Q31M [facility] Rx#:[id number] Output: Gastric Drainage 100 120 Urine 260 317 210 Other: Voiding Method Indwelling Catheter Indwelling Catheter Indwelling Catheter - Exam GENERAL EXAM: Alert, pleasant, 88-year-old white female on 2 L of oxygen, with NG tube in place to low intermittent suction, comfortable in no apparent distr ess. HEAD: Normocephalic/atraumatic. EYES: Normal reaction of pupils, equal size. Conjunctiva pink, sclera white. NOSE: Clear with pink turbinates. THROAT: No erythema or exudates. NECK: No masses, no JVD, no thyroid enlargement, no adenopathy. CHEST: No chest wall deformity. Symmetrical expansion. LUNGS: Equal air entry with no crackles, wheeze, rhonchi or dullness. CVS: Regular rate and rhythm, normal S1 and S2, no gallops, no murmurs, no rubs ABDOMEN: Soft, nontender. No hepatosplenomegaly, normal bowel sounds, no guarding or rigidity. Her concern is covered with a surgical dressing, d ressings clean and dry, abdomen is with minimal distention. Mild diffuse tenderness. EXTREMITIES: No clubbing, no edema, no cyanosis, 2+ pulses and upper and lower extremities. MUSCULOSKELETAL: Muscle strength and tone normal. SPINE: No scoliosis or deformity SKIN: No rashes CENTRAL NERVOUS SYSTEM: Alert and oriented -3. No focal deficits, tone is normal in all 4 extremities. PSYCHIATRIC: Alert and oriented -3. Appropriate affect. Intact judgment and insight. - Labs CBC & Chem 7: 11/18/18 04:43 11/18/18 04:43 Labs: Abnormal Lab Results - Last 24 Hours (Table) 11/18/18 11/18/18 Range/Units 04:43 04:43 WBC 15.8 H (3.8-10.6) k/uL RBC 3.66 L (3.80-5.40) m/uL Hgb 9.1 L (11.4-16.0) gm/dL Hct 32.7 L (34.0-46.0) % MCHC 28.0 L (31.0-37.0) g/dL RDW 16.9 H (11.5-15.5) % Neutrophils # 14.5 H (1.3-7.7) k/uL Lymphocytes # 0.6 L (1.0-4.8) k/uL Sodium 135 L (137-145) mmol/L Glucose 108 H (74-99) mg/dL Calcium 8.2 L (8.4-10.2) mg/dL Assessment and Plan Plan: #1. Recent diagnosis of colon cancer, status post right colectomy, and extensive lysis of adhesions, postoperative day 2 #2 Small left-sided pneumothorax, may relate to emphysematous lungs. Another consideration is malignancy within the pleural space and a malignant left-sided pleural effusion. This is to be monitored very closely. #3 Pulmonary nodules with pleural thickening and patchy fibrosis/atelectasis. Right Basilar pulmonary nodule seen on patient's CT chest, may be related to metastatic lesion #4 Hypertension. #5 Hyperlipidemia. #6 Hypothyroidism. #7 History of atrial fibrillation. #8 severe stage III COPD, with the bedside PFT showed FEV1 of 0.80 or 36% of predicted #9 small bilateral pleural effusions, left greater than right PLAN Continue the current conservative care. Continue routine postop care. Pain control. Antibiotics. Keep nothing by mouth for now. Keep NG tube in place. Utilize incentive spirometer. Continue IV fluids. We'll continue to follow the patient will be kept in ICU for 24 hours.
--- NOTE | 2018-11-18 15:45 | P.PN ---
Subjective Progress Note Date: 11/18/18 Principal diagnosis: Syncope Ms. Cardona is an 88-year-old female with a past medical history of colon cancer, hypertension, hyperlipidemia, COPD admitted for syncope secondary to dehydration. Patient's symptoms improved with IV fluids. Patient has colon cancer without evidence of metastasis so she underwent colectomy by Dr. Weiss on 11/15/18. On 11/18/18 - Overnight no active issues reported by nursing staff , patient is lying comfortably in the bed , appear sto be in distress. She complains of mild abdominal soreness. Patient still has epidural in place. She has Montana's catheter in place. She denies having any fever chills or rigors. No chest pain or palpitations. No cough or difficulty in breathing. She has been getting intermittent boluses of IV normal saline, to which she did respond. She is on Zosyn and Flagyl. Patient's blood pressure is still running on the lower side. She is getting IV fluids. Her urinary output is much better compared to yeste rday. She is making around 25-30 mL every hour. Active Medications Albuterol/Ipratropium (Duoneb 0.5 Mg-3 Mg/3 Ml Soln) 3 ml INHALATION RT-TID [facility] Last Admin: 11/18/18 12:30 Dose: 3 ml Documented by: Albuterol/Ipratropium (Duoneb 0.5 Mg-3 Mg/3 Ml Soln) 3 ml INHALATION RT-Q2H PRN PRN Reason: Shortness Of Breath Or Wheezing Amlodipine Besylate (Norvasc) 10 mg PO DAILY [facility] Last Admin: 11/18/18 08:18 Dose: Not Given Documented by: Aspirin (Aspirin) 325 mg PO DAILY [facility] Last Admin: 11/18/18 08:18 Dose: Not Given Documented by: Atorvastatin Calcium (Lipitor) 10 mg PO HS [facility] Last Admin: 11/17/18 20:15 Dose: Not Given Documented by: Budesonide (Pulmicort) 1 mg INHALATION RT-BID [facility] Last Admin: 11/18/18 07:33 Dose: 1 mg Documented by: Enoxaparin Sodium (Lovenox) 40 mg SQ DAILY [facility] Last Admin: 11/18/18 08:17 Dose: 40 mg Documented by: Ferrous Sulfate (Feosol) 125 mg PO BID [facility] Last Admin: 11/18/18 08:18 Dose: Not Given Documented by: Formoterol Fumarate (Perforomist) 20 mcg INHALATION RT-BID [facility] Last Admin: 11/18/18 07:33 Dose: 20 mcg Documented by: Piperacillin Sod/Tazobactam (Sod 3.375 gm/ Sodium Chloride) 100 mls @ 25 mls/hr IVPB Q8HR [facility] Last Admin: 11/18/18 08:17 Dose: 25 mls/hr Documented by: Ropivacaine 250 mg/Hydromorphone HCl 5 mg/ Sodium Chloride 250 mls @ 0 mls/hr EPIDURAL .Q0M PRN; Protocol PRN Reason: Pain Control Last Admin: 11/18/18 09:47 Dose: 5 mls/hr Documented by: Metronidazole 500 mg/ IV (Solution) 100 mls @ 100 mls/hr IVPB Q8HR [facility] Last Admin: 11/18/18 08:17 Dose: 100 mls/hr Documented by: Dextrose/Sodium Chloride (Dextrose 5%-1/2ns Iv Soln) 1,000 mls @ 125 mls/hr IV .Q8H [facility] Last Admin: 11/18/18 06:43 Dose: 125 mls/hr Documented by: Levothyroxine Sodium (Synthroid) 137 mcg PO MoTuWeThFrSa@0630 [facility] Last Admin: 11/18/18 05:26 Dose: Not Given Documented by: Levothyroxine Sodium (Synthroid) 274 mcg PO Gunderson@0630 [facility] Last Admin: 11/17/18 06:08 Dose: Not Given Documented by: Metoprolol Succinate (Toprol Xl) 50 mg PO DAILY@1200 [facility] Last Admin: 11/18/18 14:17 Dose: Not Given Documented by: Miscellaneous Information (Potassium Per Protocol) 1 each MISCELLANE DAILY PRN; Protocol PRN Reason: Per Protocol Miscellaneous Information (Magnesium Per Protocol) 1 each MISCELLANE DAILY PRN; Protocol PRN Reason: Per Protocol Naloxone HCl (Narcan) 0.2 mg IV Q2M PRN PRN Reason: Opioid Reversal Nitroglycerin (Nitrostat) 0.4 mg SUBLINGUAL Q5M PRN PRN Reason: Chest Pain Ondansetron HCl (Zofran) 4 mg IVP Q8HR PRN PRN Reason: Nausea And Vomiting Last Admin: 11/16/18 13:23 Dose: 4 mg Documented by: Objective - Vital Signs Vital signs: Vital Signs Temp 97.6 F 11/18/18 12:00 Pulse 83 11/18/18 14:00 Resp 18 11/18/18 14:00 BP 121/63 11/18/18 14:00 Pulse Ox 92 L 11/18/18 14:00 Intake & Output 11/17/18 11/18/18 11/18/18 18:59 06:59 18:59 Intake Total 2700 2075 1200 Output Total 360 437 210 Balance 2340 1638 990 Weight 71.8 kg 71.8 kg Intake: IV 1900 5 1200 D5-0.45% NaCl with KCl 400 20Meq/l 1,000 ml @ 100 mls/hr IV .Q10H [facility] Rx#: [id number] Dextrose 5%-0.45% NaCl 1, 800 1375 1000 000 ml @ 125 mls/hr IV . Q8H [facility] Rx#:[id number] Piperacillin-Tazobactam 3 100 100 100 .375 gm In Sodium Chloride 0.9% 100 ml @ 25 mls/hr IVPB Q8HR [facility] Rx# :[id number] Sodium Chloride 0.9% 250 500 ml @ 999 mls/hr IV .Q16M [facility] Rx#:[id number] Sodium Chloride 0.9% 500 500 ml 500 ml @ 999 mls/hr IV .Q31M [facility] Rx#:[id number] metroNIDAZOLE-NS PMX 500 100 100 100 mg In Saline 1 100ml.bag @ 100 mls/hr IVPB Q8HR [facility] Rx#:[id number] Intake, IV Titration 800 Amount Magnesium Sulfate-D5w Pmx 200 1 gm In Dextrose/Water 1 100ml.bag @ 100 mls/hr IVPB Q1H [facility] Rx#: [id number] Piperacillin-Tazobactam 3 100 .375 gm In Sodium Chloride 0.9% 100 ml @ 25 mls/hr IVPB Q8HR [facility] Rx# :[id number] Sodium Chloride 0.9% 500 500 ml 500 ml @ 999 mls/hr IV .Q31M [facility] Rx#:[id number] Output: Gastric Drainage 100 120 Urine 260 317 210 Other: Voiding Method Indwelling Catheter Indwelling Catheter Indwelling Catheter - Exam GENERAL: The patient is alert and oriented x3, not in any acute distress. Well developed, well nourished. HEENT: No pallor. No icterus CARDIOVASCULAR: S1 and S2 present. No murmurs, rubs, or gallops. PULMONARY: Chest is clear to auscultation, no wheezing or crackles. ABDOMEN: Soft, non distended. Mild diffuse tenderness. Abdominal binder in place. Montana's catheter in place. Bowel sounds could not be appreciated. MUSCULOSKELETAL: No joint swelling or deformity. EXTREMITIES: No cyanosis, clubbing. Mild pitting edema bilaterally. NEUROLOGICAL: Gross neurological examination did not reveal any focal deficits. SKIN: No rashes. - Labs CBC & Chem 7: 11/18/18 04:43 11/18/18 04:43 Labs: Abnormal Lab Results - Last 24 Hours (Table) 11/18/18 11/18/18 Range/Units 04:43 04:43 WBC 15.8 H (3.8-10.6) k/uL RBC 3.66 L (3.80-5.40) m/uL Hgb 9.1 L (11.4-16.0) gm/dL Hct 32.7 L (34.0-46.0) % MCHC 28.0 L (31.0-37.0) g/dL RDW 16.9 H (11.5-15.5) % Neutrophils # 14.5 H (1.3-7.7) k/uL Lymphocytes # 0.6 L (1.0-4.8) k/uL Sodium 135 L (137-145) mmol/L Glucose 108 H (74-99) mg/dL Calcium 8.2 L (8.4-10.2) mg/dL Assessment and Plan Assessment: ASSESSMENT Colon Cancer - status post right colectomy -postoperative day 4 Syncope resolved Hypovolemic hyponatremia resolved COPD not in exacerbation Hypertension Hyperlipidemia DJD Leukocytosis most probably reactive Moderate protein calorie malnutrition Hypoalbuminemia PLAN: Patient's urinary output much better in the last 24 hours. She still continues have epidural in place, for pain management She is to be continued on Zosyn and Flagyl, postop. Continue with breathing treatments for her COPD. Continue with DVT prophylaxis. Further recommendations depending on the prog ress of the patient.
[2018-11-18] MEDS: ATORVASTATIN 10 MG TAB PO SCH (22:26)
[2018-11-19] MEDS: metroNIDAZOLE-NS PMX 500 MG in SALINE 1 100ML.BAG IVPB SCH ×2 (00:23→09:52)
[2018-11-19] MEDS: PIPERACILLIN-TAZOBACTAM 3.375 GM in SODIUM CHLORIDE 0.9% 100 ML IVPB SCH ×4 (00:23→23:40)
[2018-11-19] MEDS: DEXTROSE 5%-0.45% NACL 1,000 ML IV SCH ×2 (05:54→15:47)
[2018-11-19] MEDS: LEVOTHYROXINE 137 MCG TAB PO SCH (06:00)
[2018-11-19] MEDS: BUDESONIDE 1 MG/2 ML NEBU INHALATION SCH ×2 (07:46→19:33)
[2018-11-19] MEDS: FORMOTEROL FUMARATE 20 MCG/2 ML NEBU INHALATION SCH ×2 (07:46→19:50)
[2018-11-19] MEDS: IPRATROPIUM-ALBUTEROL 3 ML NEB INHALATION SCH ×3 (07:46→19:33)
[2018-11-19 09:00] LABS: Anisocytosis Slight; Basophils % (A) 0 %; Eosinophils # (A) 0.1 k/uL (0-0.7); Eosinophils % (A) 0 %; HCT 30.1 % (34.0-46.0); HGB 8.8 gm/dL (11.4-16.0); Hypochromasia Marked; Lymphocytes # (A) 0.9 k/uL (1.0-4.8); Lymphocytes % (A) 5 %; MCH 25.4 pg (25.0-35.0); MCHC 29.1 g/dL (31.0-37.0); MCV 87.3 fL (80.0-100.0); Mean Platelet Volume 8.8; Monocytes # (A) 0.4 k/uL (0-1.0); Monocytes % (A) 2 %; Neutrophils # (A) 15.3 k/uL (1.3-7.7); Neutrophils % (A) 91 %; Platelet Count 244 k/uL (150-450); RBC 3.45 m/uL (3.80-5.40); RDW 16.3 % (11.5-15.5); WBC 16.8 k/uL (3.8-10.6)
[2018-11-19 09:07] LABS: Calcium 7.9 mg/dL (8.4-10.2); Magnesium 1.6 mg/dL (1.6-2.3); Phosphorus 3.4 mg/dL (2.5-4.5); Potassium 4.1 mmol/L (3.5-5.1)
[2018-11-19] MEDS: FERROUS SULFATE ORAL ELIXIR 300 MG/5 ML CUP PO SCH ×2 (09:10→20:06)
[2018-11-19] MEDS: ASPIRIN 325 MG TAB PO SCH (09:16)
[2018-11-19] MEDS: amLODIPine 10 MG TAB PO SCH (09:16)
[2018-11-19] MEDS: ENOXAPARIN 40 MG/0.4 ML SYRINGE SQ SCH (09:16)
--- NOTE | 2018-11-19 09:54 | P.PN ---
Progress Note - Text Progress Note Date: 11/19/18 POD 3 from ex lap, epidural catheters running at 5 mL per hour. The site is clean and dry. Patient's pain is very well controlled. She reports that she has some return of bowel function. She has no lower extremity weakness. She does have a [place] catheter per the surgical team. I advised her that we should remove the catheter at the end of the day today. I did discuss with the nurse and she will pull the catheter towards the end of the day today. Follow up as needed
--- NOTE | 2018-11-19 11:46 | P.PN ---
<Lakshmi Burnett Evelin - Last Filed: 11/19/18 11:44> Subjective Progress Note Date: 11/19/18 CHIEF COMPLAINT: syncope, cancer HISTORY OF PRESENT ILLNESS: Patient is status post right colectomy and extensive lysis of adhesions performed on 11/16/2018. POD #3. Patient examined at the bedside. She reports her pain is tolerable with epidural. Denies nausea. NG to LIS. Patient states she had a small amount of flatus this morning. WBC up to 16.8. Afebrile. Heart rate 100s. Hemoglobin 8.8. PHYSICAL EXAM: VITAL SIGNS: Reviewed. GENERAL: Well-developed in no acute distress. HEENT: NG to LIS. No sclera icterus. Extraocular movements grossly intact. Moist buccal mucosa. Head is atraumatic, normocephalic. ABDOMEN: Soft. Nondistended. Minimal tenderness. Hypoactive bowel sounds. NEUROLOGIC: Alert and oriented. Cranial nerves II through XII grossly intact. ASSESSMENT: 1. Adenocarcinoma of the colon, s/p right colectomy and extensive lysis of adhesions PLAN: 1. Patient reports passing a very small amount of flatus this morning. Will continue NG tube at this time. We will re-assess this afternoon and hopefully can DC NG and begin clear liquid diet 2. Discontinue epidural and saldivar catheter today 3. Activity as tolerated 4. Incentive spirometry 5. Monitor WBC. Continue antibiotics Nurse practitioner note has been reviewed by physician. Signing provider agrees with the documented findings, assessment, and plan of care. Objective - Vital Signs Vital signs: Vital Signs Temp 98.1 F 11/19/18 04:33 Pulse 100 11/19/18 08:11 Resp 18 11/19/18 04:33 BP 108/58 11/19/18 04:33 Pulse Ox 92 L 11/19/18 04:33 Intake & Output 11/18/18 11/19/18 11/19/18 18:59 06:59 18:59 Intake Total 1650 1700 Output Total 265 570 Balance 1385 1130 Weight 71.8 kg Intake: IV 1650 1700 Dextrose 5%-0.45% NaCl 1, 1250 1500 000 ml @ 125 mls/hr IV . Q8H [facility] Rx#:[id number] Piperacillin-Tazobactam 3 200 100 .375 gm In Sodium Chloride 0.9% 100 ml @ 25 mls/hr IVPB Q8HR [facility] Rx# :[id number] metroNIDAZOLE-NS PMX 500 200 100 mg In Saline 1 100ml.bag @ 100 mls/hr IVPB Q8HR [facility] Rx#:[id number] Oral 0 Output: Gastric Drainage 10 Urine 265 560 Other: Voiding Method Indwelling Catheter Indwelling Catheter - Labs CBC & Chem 7: 11/19/18 08:11 11/19/18 08:11 Labs: Abnormal Lab Results - Last 24 Hours (Table) 11/19/18 11/19/18 Range/Units 08:11 08:11 WBC 16.8 H (3.8-10.6) k/uL RBC 3.45 L (3.80-5.40) m/uL Hgb 8.8 L (11.4-16.0) gm/dL Hct 30.1 L (34.0-46.0) % MCHC 29.1 L (31.0-37.0) g/dL RDW 16.3 H (11.5-15.5) % Neutrophils # 15.3 H (1.3-7.7) k/uL Lymphocytes # 0.9 L (1.0-4.8) k/uL Sodium 134 L (137-145) mmol/L Chloride 108 H (98-107) mmol/L Carbon Dioxide 21 L (22-30) mmol/L Calcium 7.9 L (8.4-10.2) mg/dL <Everett Weiss - Last Filed: 11/19/18 16:02> Subjective As above. Patient with a small amount of flatus. No nasogastric tube output at all. Denies pain. We'll remove nasogastric tube. Continue nothing by mouth except for ice chips and popsicles. Await final pathology. Objective - Vital Signs Vital signs: Vital Signs Temp 97.8 F 11/19/18 12:43 Pulse 56 L 11/19/18 12:43 Resp 17 11/19/18 12:43 BP 108/56 11/19/18 12:43 Pulse Ox 96 11/19/18 12:43 Intake & Output 11/18/18 11/19/18 11/19/18 18:59 06:59 18:59 Intake Total 1650 1700 200 Output Total 265 570 0 Balance 1385 1130 200 Weight 71.8 kg Intake: IV 1650 1700 200 Dextrose 5%-0.45% NaCl 1, 1250 1500 100 000 ml @ 75 mls/hr IV . [id number] [facility] Rx#:[id number] Piperacillin-Tazobactam 3 200 100 .375 gm In Sodium Chloride 0.9% 100 ml @ 25 mls/hr IVPB Q8HR [facility] Rx# :[id number] metroNIDAZOLE-NS PMX 500 200 100 100 mg In Saline 1 100ml.bag @ 100 mls/hr IVPB Q8HR [facility] Rx#:[id number] Oral 0 Output: Gastric Drainage 10 0 Urine 265 560 Other: Voiding Method Indwelling Catheter Indwelling Catheter Indwelling Catheter - Labs CBC & Chem 7: 11/19/18 08:11 11/19/18 08:11 Labs: Abnormal Lab Results - Last 24 Hours (Table) 11/19/18 11/19/18 Range/Units 08:11 08:11 WBC 16.8 H (3.8-10.6) k/uL RBC 3.45 L (3.80-5.40) m/uL Hgb 8.8 L (11.4-16.0) gm/dL Hct 30.1 L (34.0-46.0) % MCHC 29.1 L (31.0-37.0) g/dL RDW 16.3 H (11.5-15.5) % Neutrophils # 15.3 H (1.3-7.7) k/uL Lymphocytes # 0.9 L (1.0-4.8) k/uL Sodium 134 L (137-145) mmol/L Chloride 108 H (98-107) mmol/L Carbon Dioxide 21 L (22-30) mmol/L Calcium 7.9 L (8.4-10.2) mg/dL Assessment and Plan (1) Colon cancer Current Visit: Yes Status: Acute Code(s): C18.9 - MALIGNANT NEOPLASM OF COLON, UNSPECIFIED SNOMED Code(s): 093190804
--- NOTE | 2018-11-19 11:53 | P.PN ---
Subjective Progress Note Date: 11/19/18 The patient is seen today in 11/14/2018 in follow-up on the regular medical floor. She is awake and alert in no acute distress. She is a recent diagnosis of adenocarcinoma of the colon and is expected to have surgery next week. She does have some probable underlying COPD from previous heavy tobacco use. She is on Qvar and pro-air in the outpatient setting. Chest x-ray did not show any significant abnormalities. Computed tomography scan of the chest showed no pulmonary embolism. There is some emphysematous changes and pulmonary fibrosis. There is some right lower lobe nodules that are noncalcified for possible granulomas. There is some regular pleural thickening of the left lung base with some patchy fibrosis and atelectasis. There is also a small 10% pneumothorax on the left. Today she is doing quite well. She denies any worsening shortness of breath, cough or congestion. Maintaining good O2 saturations in the 90s on room air. White count 13.0. Hemoglobin 10.4. Creatinine 0.6. Computed tomography scan of the abdomen and pelvis reveals a lower ascending colonic neoplasm sp anning 7.9 cm. Right basilar pulmonary nodule. Abnormal pleural-based thickening at the left base. Continued left greater than right pleural effusions. Left side appears complicated/complex and suspicious for malignant effusion. Persistent left-sided pneumothorax. Rounded soft tissue areas in the gastric fundus difficult to exclude neoplasm. Noted abdominal aorta iliac endovascular stent. On 11/15/2016 patient seen in follow-up on medical surgical floor. Yesterday she completed her bedside PFT, which showed FEV1 of 0.80 L, or 36% of predicted consistent with stage III severe COPD, making this patient a high risk for postoperative complications related to her poor lung function. We added breathing treatments, Pulmicort and Perforomist, and DuoNeb nebulized treatments to optimize patient's lung function. She is awake and alert, in no acute distress, abdomen/pelvis CT was completed yesterday and lower ascending colon neoplasm measuring 7.9 cm, right basilar pulmonary nodule on patient's CT chest, and abnormal pleural-based thickening at the left base related to scarring, left greater than right pleural effusions, with the left-sided effusion having all of margin suggesting complicated/complex effusion Possibility of a malignant effusion, persistent partially visualized left-sided pneumothorax, and there was a couple of bunched up rounded soft tissue areas gastric fundus, patient is undergoing EGD by Dr. Weiss today 11/17/2018 patient seen in follow-up in the intensive care unit, this is postop day 1, status post right colectomy with the extensive lysis of adhesions with the end to end anastomosis. Patient is awake and alert, she is in the intensive care unit, in no acute distress, currently on 2 L of oxygen per nasal cannula, with a pulse ox of 96%, she is afebrile, hemodynamically stable, IVs D5 half- normal saline with the 20th potassium at a rate of 100 ML per hour, patient has a epidural in place which is infusing at 5 ML per hour. She is awake and alert, no acute distress, lung sounds are clear, she is in sinus rhythm, no vasoactive drips, NG tube is in place to low intermittent suction, patient is tolerating ice chips, today's chest x-ray shows left basilar airspace disease, and the right basilar airspace disease that is developing, with the left-sided pleural effusion. Doing very well postoperatively, antibiotic coverage in the form of Zosyn and Flagyl On 11/18/2018 I'm seeing this patient for a follow-up. She is awake and alert and she is comfortable and she is postop day #2 following a right colectomy and lysis of adhesions and aunt and anastomosis. NG tube is in place. Output is in the order of minimal and the patient has sluggish bowel sounds without any bowel activity is. As such the patient has still been MPO. The patient is on IV fluids with D5 normal saline at the rate of 125 mL an hour. Epidural bupivacaine and Dilaudid is being used for pain control. No altered mentation is no hypotension. No cough no sputum production. No signs of any respiratory distress. Antibiotic coverage is in the form of Flagyl and Zosyn. White cell count of 15.8. Renal function is stable with a creatinine of 0.9. No other sig nificant events overnight. She is using incentive spirometer. She is passing gas. On 11/19/2018 I'm seeing this patient for a follow-up H is postop day #3. NG tube still in place. She is post right colectomy and lysis of adhesions with primary anastomosis. She is passing gas. The pain is under good control. Incision is dry clean and intact. No respiratory distress. Hemodynamically stable. No cough or sputum production. Remains on broad-spectrum antibiotic coverage with a combination of Zosyn and Flagyl. Remains on bronchodilators [id number]. She is still using incentive spirometer. She is on epidural bupivacaine with Dilaudid. No other significant events over the past 24 hours. White cell count of 16.8. Rest of the blood work and electrodes are all within normal limits. Objective - Vital Signs Vital signs: Vital Signs Temp 98.1 F 11/19/18 04:33 Pulse 100 11/19/18 08:11 Resp 18 11/19/18 04:33 BP 108/58 11/19/18 04:33 Pulse Ox 92 L 11/19/18 04:33 Intake & Output 11/18/18 11/19/18 11/19/18 18:59 06:59 18:59 Intake Total 1650 1700 Output Total 265 570 Balance 1385 1130 Weight 71.8 kg Intake: IV 1650 1700 Dextrose 5%-0.45% NaCl 1, 1250 1500 000 ml @ 125 mls/hr IV . Q8H [facility] Rx#:[id number] Piperacillin-Tazobactam 3 200 100 .375 gm In Sodium Chloride 0.9% 100 ml @ 25 mls/hr IVPB Q8HR [facility] Rx# :[id number] metroNIDAZOLE-NS PMX 500 200 100 mg In Saline 1 100ml.bag @ 100 mls/hr IVPB Q8HR [facility] Rx#:[id number] Oral 0 Output: Gastric Drainage 10 Urine 265 560 Other: Voiding Method Indwelling Catheter Indwelling Catheter - Exam GENERAL EXAM: Alert, pleasant, 88-year-old white female on 2 L of oxygen, with NG tube in place to low intermittent suction, comfortable in no apparent distress. HEAD: Normocephalic/atraumatic. EYES: Normal reaction of pupils, equal size. Conjunctiva pink, sclera white. NOSE: Clear with pink turbinates. THROAT: No erythema or exudates. NECK: No masses, no JVD, no thyroid enlargement, no adenopathy. CHEST: No chest wall deformity. Symmetrical expansion. LUNGS: Equal air entry with no crackles, wheeze, rhonchi or dullness. CVS: Regular rate and rhythm, normal S1 and S2, no gallops, no murmurs, no rubs ABDOMEN: Soft, nontender. No hepatosplenomegaly, normal bowel sounds, no guarding or rigidity. Her concern is covered with a surgical dressing, dressings clean and dry, abdomen is with minimal distention. Mild diffuse tenderness. EXTREMITIES: No clubbing, no edema, no cyanosis, 2+ pulses and upper and lower extremities. MUSCULOSKELETAL: Muscle strength and tone normal. SPINE: No scoliosis or deformity SKIN: No rashes CENTRAL NERVOUS SYSTEM: Alert and oriented -3. No focal deficits, tone is normal in all 4 extremities. PSYCHIATRIC: Alert and oriented -3. Appropriate affect. Intact judgment and insight. - Labs CBC & Chem 7: 11/19/18 08:11 11/19/18 08:11 Labs: Abnormal Lab Results - Last 24 Hours (Table) 11/19/18 11/19/18 Range/Units 08:11 08:11 WBC 16.8 H (3.8-10.6) k/uL RBC 3.45 L (3.80-5.40) m/uL Hgb 8.8 L (11.4-16.0) gm/dL Hct 30.1 L (34.0-46.0) % MCHC 29.1 L (31.0-37.0) g/dL RDW 16.3 H (11.5-15.5) % Neutrophils # 15.3 H (1.3-7.7) k/uL Lymphocytes # 0.9 L (1.0-4.8) k/uL Sodium 134 L (137-145) mmol/L Chloride 108 H (98-107) mmol/L Carbon Dioxide 21 L (22-30) mmol/L Calcium 7.9 L (8.4-10.2) mg/dL Assessment and Plan Plan: #1. Recent diagnosis of colon cancer, status post right colectomy, and extensive lysis of adhesions, postoperative day 3 #2 Small left-sided pneumothorax, may relate to emphysematous lungs. Another consideration is malignancy within the pleural space and a malignant left-sided pleural effusion. This is to be monitored very closely. #3 Pulmonary nodules with pleural thickening and patchy fibrosis/atelectasis. Right Basilar pulmonary nodule seen on patient's CT chest, may be related to metastatic lesion #4 Hypertension. #5 Hyperlipidemia. #6 Hypothyroidism. #7 History of atrial fibrillation. #8 severe stage III COPD, with the bedside PFT showed FEV1 of 0.80 or 36% of predicted #9 small bilateral pleural effusions, left greater than right PLAN Diet and removal of NG tube for general surgery. The patient has minimal output from the NG tube and she has some bowel activity and passing flatus. The patient is postop day #3. The incision is dry clean and intact. There is a concern for metastatic spread to her lungs and the patient has a loculated hydropneumothorax on the left which is being monitored. Recommend chest x-ray with next 24-48 hours to make sure the findings are stable. Otherwise clinically, the patient is doing well and she is on oxygen and she is using incentive spirometer and regular basis. She showed no evidence of this on further treatment if metastases confirmed. Management per anesthesia. The patient is still her underlying epidural catheter with bupivacaine and Dilaudid. Keep same antibiotic coverage. Continue Lovenox for DVT prophylaxis.
--- NOTE | 2018-11-19 12:55 | P.PN ---
Subjective Progress Note Date: 11/19/18 Principal diagnosis: Colon adenocarcinoma, status post resection. Patient is doing well postprocedure, no nausea, post procedure pain is controlled, she had a bowel movement yesterday. Family is in the room for discussion regarding diagnosis. Objective - Vital Signs Vital signs: Vital Signs Temp 97.8 F 11/19/18 12:43 Pulse 56 L 11/19/18 12:43 Resp 17 11/19/18 12:43 BP 108/56 11/19/18 12:43 Pulse Ox 96 11/19/18 12:43 Intake & Output 11/18/18 11/19/18 11/19/18 18:59 06:59 18:59 Intake Total 1650 1700 Output Total 265 570 Balance 1385 1130 Weight 71.8 kg Intake: IV 1650 1700 Dextrose 5%-0.45% NaCl 1, 1250 1500 000 ml @ 125 mls/hr IV . Q8H [facility] Rx#:[id number] Piperacillin-Tazobactam 3 200 100 .375 gm In Sodium Chloride 0.9% 100 ml @ 25 mls/hr IVPB Q8HR [facility] Rx# :[id number] metroNIDAZOLE-NS PMX 500 200 100 mg In Saline 1 100ml.bag @ 100 mls/hr IVPB Q8HR [facility] Rx#:[id number] Oral 0 Output: Gastric Drainage 10 Urine 265 560 Other: Voiding Method Indwelling Catheter Indwelling Catheter Indwelling Catheter - Constitutional General appearance: Present: average body habitus, cooperative, no acute distress - EENT Eyes: Present: anicteric sclerae, EOMI - Respiratory Details: Respirations are even and unlabored, no acute distress - Gastrointestinal Gastrointestinal Comment(s): Abdominal binder - Neurologic Neurologic: Present: CNII-XII intact - Musculoskeletal Musculoskeletal: Present: generalized weakness - Psychiatric Psychiatric: Present: A&O x's 3, appropriate affect, intact judgment & insight - Labs CBC & Chem 7: 11/19/18 08:11 11/19/18 08:11 Labs: Abnormal Lab Results - Last 24 Hours (Table) 11/19/18 11/19/18 Range/Units 08:11 08:11 WBC 16.8 H (3.8-10.6) k/uL RBC 3.45 L (3.80-5.40) m/uL Hgb 8.8 L (11.4-16.0) gm/dL Hct 30.1 L (34.0-46.0) % MCHC 29.1 L (31.0-37.0) g/dL RDW 16.3 H (11.5-15.5) % Neutrophils # 15.3 H (1.3-7.7) k/uL Lymphocytes # 0.9 L (1.0-4.8) k/uL Sodium 134 L (137-145) mmol/L Chloride 108 H (98-107) mmol/L Carbon Dioxide 21 L (22-30) mmol/L Calcium 7.9 L (8.4-10.2) mg/dL Assessment and Plan (1) Colon adenocarcinoma Narrative/Plan: Patient is status post resection. Unfortunately, patient did have extension of the tumor that was unable to be resected. Dr. Daniels review the patient and her family that this does change her prognosis, patient has stage IV malignancy. Intent of any treatment would be prolongation of life and palliation of symptoms. It was reiterated that the resection was the best option for palliation and prevention of obstruction. Chemotherapy options were discussed, life expectancy with and without treatment was reviewed. All of patient and her family's questions were answered to their satisfaction. At this time they will consider the options. Any treatment for malignancy would not begin until patient has recuperated and healed from surgical process. Plan is for follow-up in about 4-5 weeks. Current Visit: Yes Status: Acute Priority: High Code(s): C18.9 - MALIGNANT NEOPLASM OF COLON, UNSPECIFIED SNOMED Code(s): 604993301 Plan: Doctor attests: I performed a history and physical examination of this patient with dictator. I have developed impression and plan, agree with dictators note, documented as a scribe. Time with Patient: Greater than 30 (Greater than 35 minutes spent, greater than 50% counseling and correlating care)
[2018-11-19] MEDS: METOPROLOL SUCCINATE (ER) 50 MG TAB.ER.24H PO SCH (13:42)
[2018-11-19] MEDS: metroNIDAZOLE 500 MG TAB PO SCH ×2 (17:35→23:40)
[2018-11-19] MEDS: ATORVASTATIN 10 MG TAB PO SCH (20:06)
--- NOTE | 2018-11-20 00:30 | P.PN ---
Subjective Ms. Cardona is an 88-year-old female with a past medical history of colon cancer, hypertension, hyperlipidemia, COPD admitted for syncope secondary to dehydration. Patient's symptoms improved with IV fluids. Patient has colon cancer without evidence of metastasis so she underwent colectomy by Dr. Weiss on 11/15/18. On 11/18/18 - Overnight no active issues reported by nursing staff , patient is lying comfortably in the bed , appear sto be in distress. She complains of mild abdominal soreness. Patient still has epidural in place. She has Saldivar's catheter in place. She denies having any fever chills or rigors. No chest pain or palpitations. No cough or difficulty in breathing. She has been getting intermittent boluses of IV normal saline, to which she did respond. She is on Zosyn and Flagyl. Patient's blood pressure is still running on the lower side. She is getting IV fluids. Her urinary output is much better compared to . She is making around 25-30 mL every hour. Subjective 11/19/2018 Patient is seen today in the general medical floor. In the morning she still have the NG tube in. She still nothing by mouth. She had gas but regular bowel movements yesterday. Surgical site pain is minimal and controlled. Patient is hemodynamically stable. Her WBC is slightly worse at 16.8 KG, platelet count 244, hemoglobin 8.8. Sodium 134. Rest of the appendectomy was unremarkable. Surgical follow-up is appreciated to the recommend to discontinue epidural and Saldivar catheter. Continue with incentive spirometry. Patient will need repeat chest x-ray in 24-48 hours for her pneumothorax. As per oncology evaluation looks like patient is a stage IV malignancy, and surgery was then for palliation to prevent further obstruction in the future. Chemotherapy could be considered and 4-5 weeks when surgical site is healing Objective - Vital Signs Vital signs: Vital Signs Temp 97.8 F 11/19/18 12:43 Pulse 56 L 11/19/18 12:43 Resp 17 11/19/18 12:43 BP 108/56 11/19/18 12:43 Pulse Ox 96 11/19/18 12:43 Intake & Output 11/18/18 11/19/18 11/19/18 18:59 06:59 18:59 Intake Total 1650 1700 Output Total 265 570 Balance 1385 1130 Weight 71.8 kg Intake: IV 1650 1700 Dextrose 5%-0.45% NaCl 1, 1250 1500 000 ml @ 125 mls/hr IV . Q8H [facility] Rx#:[id number] Piperacillin-Tazobactam 3 200 100 .375 gm In Sodium Chloride 0.9% 100 ml @ 25 mls/hr IVPB Q8HR [facility] Rx# :[id number] metroNIDAZOLE-NS PMX 500 200 100 mg In Saline 1 100ml.bag @ 100 mls/hr IVPB Q8HR [facility] Rx#:[id number] Oral 0 Output: Gastric Drainage 10 Urine 265 560 Other: Voiding Method Indwelling Catheter Indwelling Catheter Indwelling Catheter - Exam GENERAL: The patient is alert and oriented x3, not in any acute distress. Well developed, well nourished. HEENT: No pallor. No icterus CARDIOVASCULAR: S1 and S2 present. No murmurs, rubs, or gallops. PULMONARY: Chest is clear to auscultation, no wheezing or crackles. -ABDOMEN: Soft, non distended. No tenderness. Abdominal binder in place. Saldivar's catheter in place. Bowel sounds could not be appreciated. Surgical wound is intact and in a dressing with no surrounding cellulitis MUSCULOSKELETAL: No joint swelling or deformity. EXTREMITIES: No cyanosis, clubbing. Mild pitting edema bilaterally. NEUROLOGICAL: Gross neurological examination did not reveal any focal deficits. SKIN: No rashes. - Labs CBC & Chem 7: 11/19/18 08:11 11/19/18 08:11 Labs: Abnormal Lab Results - Last 24 Hours (Table) 11/19/18 11/19/18 Range/Units 08:11 08:11 WBC 16.8 H (3.8-10.6) k/uL RBC 3.45 L (3.80-5.40) m/uL Hgb 8.8 L (11.4-16.0) gm/dL Hct 30.1 L (34.0-46.0) % MCHC 29.1 L (31.0-37.0) g/dL RDW 16.3 H (11.5-15.5) % Neutrophils # 15.3 H (1.3-7.7) k/uL Lymphocytes # 0.9 L (1.0-4.8) k/uL Sodium 134 L (137-145) mmol/L Chloride 108 H (98-107) mmol/L Carbon Dioxide 21 L (22-30) mmol/L Calcium 7.9 L (8.4-10.2) mg/dL Assessment and Plan Assessment: Colon Cancer - status post right colectomy right side pneumothorax, stable pulmonary nodule and pleural thickening concerning for metastatic disease Syncope resolved Hypovolemic hyponatremia resolved COPD not in exacerbation Hypertension Hyperlipidemia DJD Leukocytosis , pt is currently on antibiotic Moderate protein calorie malnutrition Hypoalbuminemia Plan: Patient's urinary output much better in the last 24 hours. Surgery team recommend to dc epidural analagesia and saldivar catheter, She is to be continued on Zosyn and Flagyl, postop. Continue with breathing treatments for her COPD. ppulmonary input is appreciated, follow up with chest xray for the pneumont horax. Continue with DVT prophylaxis. Further recommendations depending on the progress of the patient.
[2018-11-20] MEDS: DEXTROSE 5%-0.45% NACL 1,000 ML IV SCH ×2 (03:31→15:56)
[2018-11-20] MEDS: ONDANSETRON 4 MG/2 ML VIAL IVP PRN ×2 (05:30→09:16)
[2018-11-20] MEDS: LEVOTHYROXINE 137 MCG TAB PO SCH (05:31)
[2018-11-20] MEDS: IPRATROPIUM-ALBUTEROL 3 ML NEB INHALATION SCH ×3 (07:33→19:57)
[2018-11-20] MEDS: FORMOTEROL FUMARATE 20 MCG/2 ML NEBU INHALATION SCH ×2 (07:33→19:58)
[2018-11-20] MEDS: BUDESONIDE 1 MG/2 ML NEBU INHALATION SCH ×2 (07:33→19:58)
[2018-11-20] MEDS: metroNIDAZOLE 500 MG TAB PO SCH ×2 (09:06→17:48)
[2018-11-20] MEDS: PIPERACILLIN-TAZOBACTAM 3.375 GM in SODIUM CHLORIDE 0.9% 100 ML IVPB SCH ×2 (09:06→17:48)
[2018-11-20 09:12] LABS: Anisocytosis Slight; Basophils % (A) 0 %; Eosinophils % (A) 0 %; HGB 10.1 gm/dL (11.4-16.0); Hypochromasia Marked; Lymphocytes # (A) 0.5 k/uL (1.0-4.8); Lymphocytes % (A) 4 %; MCH 25.8 pg (25.0-35.0); MCHC 29.7 g/dL (31.0-37.0); MCV 86.9 fL (80.0-100.0); Mean Platelet Volume 8.5; Monocytes # (A) 0.4 k/uL (0-1.0); Monocytes % (A) 3 %; Neutrophils # (A) 12.2 k/uL (1.3-7.7); Neutrophils % (A) 93 %; Platelet Count 292 k/uL (150-450); RBC 3.91 m/uL (3.80-5.40); RDW 16.5 % (11.5-15.5); WBC 13.1 k/uL (3.8-10.6)
[2018-11-20] MEDS ORDERED: ONDANSETRON 4 MG/2 ML VIAL IVP ONE (09:14)
[2018-11-20] MEDS: FERROUS SULFATE ORAL ELIXIR 300 MG/5 ML CUP PO SCH (09:17)
[2018-11-20] MEDS: ENOXAPARIN 40 MG/0.4 ML SYRINGE SQ SCH (09:17)
[2018-11-20] MEDS: ASPIRIN 325 MG TAB PO SCH (09:17)
[2018-11-20] MEDS: amLODIPine 10 MG TAB PO SCH (09:17)
[2018-11-20] MEDS: HYDROmorphone 0.5 MG/0.5 ML SYRINGE IVP PRN (09:19)
[2018-11-20] MEDS: METOCLOPRAMIDE 5 MG/ML 2 ML VIAL IVP SCH ×4 (09:23→23:30)
[2018-11-20 09:32] LABS: Potassium 3.6 mmol/L (3.5-5.1)
--- NOTE | 2018-11-20 09:39 | XR ---
Abdomen HISTORY: Pain Frontal view of the abdomen on 2 images There are gas distended loops of colon and small bowel. Surgical clips present in the groins, midline mid abdomen. Aortic stent graft is present. There is increased attenuation in the retrocardiac regio n, obscured left hemidiaphragm, patchy density also present in the right lung base. No pneumoperitone um. Degenerative disc change in the visualized spine. There is a spinal curvature. Dense vascular marisol cifications are noted. Bone mineralization is reduced. IMPRESSION: There may be an underlying ileus or enteritis, follow-up as indicated. Probable left grea ter than right lower lobe atelectasis versus pneumonia and associated effusions. Postop changes. Guera pheral vascular occlusive disease.
--- NOTE | 2018-11-20 09:55 | XR ---
EXAMINATION TYPE: XR chest 1V DATE OF EXAM: 11/20/2018 COMPARISON: Prior chest x-ray 11/18/2018 HISTORY: Follow-up pneumonia TECHNIQUE: Single frontal view of the chest is obtained. FINDINGS: The hemidiaphragms are secured, there is bibasilar density. No pneumothorax. Postop change s are noted in the abdomen and there are overlying cardiac leads. Heart size is stable. Aorta is dens e. IMPRESSION: Basilar effusions and associated atelectasis, correlate for pneumonia. Suspect some impr ovement in aeration in the upper lobes.
--- NOTE | 2018-11-20 10:57 | XR ---
EXAMINATION TYPE: XR chest 1V portable DATE OF EXAM: 11/20/2018 COMPARISON: Prior chest x-ray same dated earlier time HISTORY: NG tube placement TECHNIQUE: Single frontal view of the chest is obtained. FINDINGS: Interval placement of an NG tube which is coiled in the distal esophagus, distal tip of th e NG tube is within the midthoracic esophagus. IMPRESSION: NG tube is not present within the stomach.
--- NOTE | 2018-11-20 11:11 | CDI ---
Documentation Clarification Form Date: 11/20/2018 10:59:00 AM From: Mya Smith RN, CCDS Admit Date: 11/14/2018 3:26:00 PM Patient Name: Alyson Cardona Visit Number: [id number] ATTENTION: The Clinical Documentation Specialists (CDI) and [facility] Coding Staff appreciate your assistance in clarifying documentation. Please respond to the clarification below the line at the bottom and electronically sign. The CDI & [facility] Coding staff will review the response and follow-up if needed. Please note: Queries are made part of the Legal Health Record. If you have any questions, please contact the author of this message via ITS. Dr. Reinaldo Vasquez Atrial Fibrillation is documented in the Pulmonary Consult and progress notes and requires further specicity by the documenting provider. History/Risk Factors: Atrial Fibrillation, HTN, Hyperlipidemia, Hypothyroidism, small bilateral pleural effusions Clinical Indicators: EKG/telemetry: Sinus Rhythm in EC EKG Treatment: Toprol XL 50 mg PO QD Several IVF Boluses In your professional opinion, can you please clarify the type of Atrial Fibrillation, if known? Chronic/Permanent Paroxysmal Persistent Other, please specify Unable to determine (Last Revision: September 2017) Chronic/Permanent MTDD
[2018-11-20] MEDS ORDERED: Magnesium Replacement Protocol 1 EACH MISC MISCELLANE PRN (11:27)
[2018-11-20] MEDS: MAGNESIUM SULFATE-D5W PMX 1 GM in DEXTROSE/WATER 1 100ML.BAG IVPB SCH ×2 (13:34→15:56)
[2018-11-20] MEDS: METOPROLOL SUCCINATE (ER) 50 MG TAB.ER.24H PO SCH (13:35)
[2018-11-20] MEDS ORDERED: DILTIAZEM DRIP BOLUS FROM BAG 1 MG SOLN IV ONE (14:00)
--- NOTE | 2018-11-20 14:24 | P.CRDCN ---
History of Present Illness History of present illness: This is a pleasant 88-year-old female past medical history significant for hypertension, COPD, dyslipidemia, hypothyroidism, aortic aneurysm s/p repair with Dr. King at [facility] 2 months ago and peripheral vascular disease. She denies history of coronary artery disease or atrial fibrillation and has never had a cardiac catheterization in the past. She was admitted to the hospital 11/12 after suffering a syncopal episode. Apparently EMS recorded she was in and out of atrial fibrillation. EKG captured on arrival initially revealed sinus mechanism wiwth PAC's and T-wave abnormalities laterally. She had also recently been diagnosed with adenocarcinoma of the colon and was in the initial stages of consulting with Dr. Daniels. Therefore Dr. Weiss was consulted to see her on this admission and subsequently thereafter she underwent right colectomy on 11/15. Another EKG was obtained on 11/18 showing atrial fibrillation with mildly rapid ventricular response heart rate 105. NG tube was removed yesterday however today she was nauseated with abdominal discomfort and NG tube was attempted to be placed again. During that event she went back into atrial fibrillation with rapid ventricular response with heart rates in the 103-140 range. The patient is seen and examined with multiple family members at the bedside. She denies chest pain, shortness of breath, dizziness or palpitations. She continues to be quite nauseated and is unable to tolerate any PO medications. Lengthy discussion had with the family members and there is no prior history of atrial fibrillation prior to this admission. When she was in [facility] 2 months ago she was having significant GI bleeding while on aspirin that prompted her to have colonoscopy which found her mass. At that time aspirin was discontinued. Chest x-ray obtained this morning reveals basilar effusions and associated atelectasis some improvement in aeration of the upper lobes. Laboratory data reviewed, WBC 13.1, hemoglobin 10.1, platelets 292, sodium 135, potassium 3.6, creatinine 0.82, magnesium 1.5, TSH 0.033, LDL 49, HDL 45, cardiac enzymes on admission negative 3. At the time of my exam: CONSTITUTIONAL: Denies fever. Denies chills. EYES: Denies blurred vision. Denies vision changes. Denies eye pain. EARS, NOSE, MOUTH & THROAT: Denies headache. Denies sore throat. Denies ear pain. CARDIOVASCULAR: Denies chest pain. Denies shortness of breath. Denies orthopnea. Denies PND. Denies palpitations. RESPIRATORY: Denies cough. GASTROINTESTINAL: Complains of abdominal pain. Denies diarrhea. Denies constipation. Complains of nausea. Denies vomiting. MUSCULOSKELETAL: Denies myalgias. INTEGUMENTARY: Denies pruitis. Denies rash. NEUROLOGIC: Denies numbness. Denies tingling. Denies weakness. PSYCHIATRIC: Denies anxiety. Denies depression. ENDOCRINE: Denies fatigue. Denies weight change. Denies polydipsia. Denies polyurina. GENITOURINARY: Denies burning, hematuria or urgency with micturation. HEMATOLOGIC: Denies history of anemia. Denies bleeding. Blood pressure 111/65 heart rate 129 afebrile maintaining oxygen saturation on room air GENERAL: This is a 88-year-old female in no apparent distress at the time of my examination. HEENT: Head is atraumatic, normocephalic. Pupils are equal, round. Sclerae anicteric. Conjunctivae are clear. Mucous membranes of the mouth are moist. Neck is supple. There is no jugular venous distention. No carotid bruit is heard. LUNGS: Clear to auscultation no wheezes, rales or rhonchi. No chest wall tenderness is noted on palpation or with deep breathing. Diminished bilaterally. HEART: Irregular rate and rhythm with systolic ejection murmur at the base, no rubs or gallops. S1 and S2 heard. Distant heart sounds. ABDOMEN: Soft, nontender. EXTREMITIES: Non-pitting edema to bilateral upper extremities. 1+ pitting edema bilateral lower extremities. VASCULAR: Radial and dorsalis pedis pulses palpated, no evidence of clubbing. NEUROLOGIC: Patient is awake, alert and oriented. ASSESSMENT Paroxysmal atrial fibrillation with rapid ventricular response, new onset this admission. Hypomagnesemia Adenocarcinoma of the colon status post right colectomy with ileus, suspect Stage IV per oncology Leukocytosis COPD Hypertension Dyslipidemia Peripheral vascular disease s/p aortic aneurysm repair and bilateral iliac repair per the family. Exact procedures and information unavailable at this time. Hypothyroidism with suppressed TSH, adjustment of daily supplementation per primary care team. PLAN Replace magnesium per protocol. She is currently not tolerating oral intake. Initiate on IV cardizem with bolus of 5mg then infusion at 5mg/hr. Anticoagulation is indicated however will be discussed with the surgical team and await their recommendations. This has been discussed with her family in great detail regarding her increased risk of stroke and the need for thromboembolic protection. Decrease aspirin to 81 mg daily. Recommend evaluation of levothyroxine per primary care team as her TSH is suppressed on current regimen. Further recommendations will be made accordingly. Thank you kindly for this consultation. Nurse Practitioner note has been reviewed, I agree with a documented findings and plan of care. Patient was seen and examined. Echocardiogram obtained on this admission reveals hyperdynamic LV systolic function with ejection fraction 65-70%, borderline LVH, moderate aortic valve sclerosis, mild aortic stenosis with a mean gradient of 13 mmHg, mild MR, mild TR and mild pulmonary hypertension with an RVSP of 43 mmHg. Past Medical History Past Medical History: Cancer, COPD, Hyperlipidemia, Hypertension, Thyroid Disorder Additional Past Medical History / Comment(s): aortic aneurysm; colon, dx 11/12/18 History of Any Multi-Drug Resistant Organisms: None Reported Past Surgical History: Cholecystectomy Additional Past Surgical History / Comment(s): spleen removed; colonscopy recent Past Anesthesia/Blood Transfusion Reactions: No Reported Reaction Past Psychological History: No Psychological Hx Reported Smoking Status: Former smoker Past Alcohol Use History: None Reported Past Drug Use History: None Reported - Past Family History Daughter(s) Family Medical History: No Reported History Medications and Allergies Home Medications Medication Instructions Recorded Confirmed Type Albuterol Sulfate [Proair Hfa] 1 - 2 puff INHALATION RT-QID PRN 11/12/18 11/12/18 History Beclomethasone Dipropionate [Qvar 1 puff INHALATION RT-BID 11/12/18 11/12/18 History 40 mcg Redihaler] Iron 27mg 27 mg PO BID 11/12/18 11/12/18 History Levothyroxine Sodium [Synthroid] 137 mcg PO MOTUWETHFRSA 11/12/18 11/12/18 History Levothyroxine Sodium [Synthroid] 274 mcg PO HAIRSTON 11/12/18 11/12/18 History Metoprolol Succinate [Toprol XL] 50 mg PO DAILY@1200 11/12/18 11/12/18 History Simvastatin [Zocor] 20 mg PO HS 11/12/18 11/12/18 History amLODIPine [Norvasc] 10 mg PO DAILY 11/12/18 11/12/18 History Allergies Allergy/AdvReac Type Severity Reaction Status Date / Time No Known Allergies Allergy Verified 11/12/18 18:33 Physical Exam Vitals: Vital Signs Temp Pulse Pulse Resp BP Pulse Ox 11/20/18 08:00 18 11/20/18 05:00 98.1 F 63 18 111/65 95 11/20/18 00:00 18 11/19/18 21:00 98.2 F 60 18 131/78 97 11/19/18 19:58 103 H 11/19/18 19:51 102 H 11/19/18 19:46 102 H 11/19/18 19:34 99 Intake and Output 11/19/18 11/20/18 11/20/18 22:59 06:59 14:59 Intake Total 410 620 Output Total 590 Balance 410 30 Intake: IV 400 600 Dextrose 5%-0.45% NaCl 1, 300 600 000 ml @ 75 mls/hr IV . [id number] [facility] Rx#:[id number] Piperacillin-Tazobactam 3 100 .375 gm In Sodium Chloride 0.9% 100 ml @ 25 mls/hr IVPB Q8HR [facility] Rx# :[id number] Oral 10 20 Output: Urine 350 Oral Regurgitation 240 Other: Voiding Method Indwelling Catheter Indwelling Catheter Indwelling Catheter # Bowel Movements 0 Weight 71.8 kg Results 11/20/18 07:50 11/20/18 07:50 CBC 11/20/18 Range/Units 07:50 WBC 13.1 H (3.8-10.6) k/uL RBC 3.91 (3.80-5.40) m/uL Hgb 10.1 L (11.4-16.0) gm/dL Hct 34.0 (34.0-46.0) % Plt Count 292 (150-450) k/uL Comprehensive Metabolic Panel 11/20/18 Range/Units 07:50 Sodium 135 L (137-145) mmol/L Potassium 3.6 (3.5-5.1) mmol/L Chloride 106 (98-107) mmol/L Carbon Dioxide 20 L (22-30) mmol/L BUN 6 L (7-17) mg/dL Creatinine 0.82 (0.52-1.04) mg/dL Glucose 74 (74-99) mg/dL Calcium 8.0 L (8.4-10.2) mg/dL Current Medications Generic Name Dose Route Start Last Admin Trade Name Freq PRN Reason Stop Dose Admin Albuterol/Ipratropium 3 ml 11/14/18 20:00 11/20/18 13:09 Duoneb 0.5 Mg-3 Mg/3 Ml Soln INHALATION Not Given RT-TID [facility] Albuterol/Ipratropium 3 ml 11/14/18 14:57 Duoneb 0.5 Mg-3 Mg/3 Ml Soln INHALATION RT-Q2H PRN Shortness Of Breath Or Wheezing Amlodipine Besylate 10 mg 11/13/18 09:00 11/20/18 09:17 Norvasc PO Not Given DAILY [facility] Aspirin 325 mg 11/13/18 09:00 11/20/18 09:17 Aspirin PO Not Given DAILY [facility] Atorvastatin Calcium 10 mg 11/13/18 21:00 11/19/18 20:06 Lipitor PO 10 mg HS REGGIE Administration Budesonide 1 mg 11/17/18 19:40 11/20/18 07:33 Pulmicort INHALATION Not Given RT-BID [facility] Diltiazem HCl 5 mg 11/20/18 12:13 Cardizem Drip Bolus From Bag IV 11/20/18 12:14 ONCE ONE Enoxaparin Sodium 40 mg 11/13/18 09:00 11/20/18 09:17 Lovenox SQ 40 mg DAILY [facility] Administration Ferrous Sulfate 125 mg 11/13/18 09:00 11/20/18 09:17 Feosol PO Not Given BID [facility] Formoterol Fumarate 20 mcg 11/14/18 20:00 11/20/18 07:33 Perforomist INHALATION Not Given RT-BID [facility] Hydromorphone HCl 0.5 mg 11/20/18 09:12 11/20/18 09:19 Dilaudid IVP 0.5 mg Q3HR PRN Administration Pain Piperacillin Sod/Tazobactam 100 mls @ 25 mls/hr 11/16/18 16:00 11/20/18 09:06 Sod 3.375 gm/ Sodium Chloride IVPB 25 mls/hr Q8HR [facility] Administration Dextrose/Sodium Chloride 1,000 mls @ 75 mls/hr 11/17/18 11:15 11/20/18 03:31 Dextrose 5%-1/2ns Iv Soln IV 75 mls/hr .[id number] [facility] Administration Diltiazem HCl 125 mg/ Sodium 125 mls @ 5 mls/hr 11/20/18 12:15 Chloride IV .Q24H REGGIE 5 MG/HR Levothyroxine Sodium 137 mcg 11/13/18 06:30 11/20/18 05:31 Synthroid PO Not Given [id number] [facility] Levothyroxine Sodium 274 mcg 11/17/18 06:30 11/17/18 06:08 Synthroid PO Not Given [email or web address] [facility] Metoclopramide HCl 10 mg 11/20/18 10:00 11/20/18 09:23 Reglan IVP 10 mg Q6HR [facility] Administration Metoprolol Succinate 50 mg 11/13/18 12:00 11/20/18 13:35 Toprol Xl PO Not Given DAILY@1200 [facility] Metronidazole 500 mg 11/19/18 16:00 11/20/18 09:06 Flagyl PO Not Given Q8HR [facility] Miscellaneous Information 1 each 11/13/18 16:06 Potassium Per Protocol MISCELLANE DAILY PRN Per Protocol Protocol Miscellaneous Information 1 each 11/15/18 09:18 Magnesium Per Protocol MISCELLANE DAILY PRN Per Protocol Protocol Miscellaneous Information 1 each 11/20/18 11:27 Magnesium Per Protocol MISCELLANE DAILY PRN Per Protocol Protocol Naloxone HCl 0.2 mg 11/16/18 11:38 Narcan IV Q2M PRN Opioid Reversal Nitroglycerin 0.4 mg 11/12/18 19:28 Nitrostat SUBLINGUAL Q5M PRN Chest Pain Ondansetron HCl 4 mg 11/16/18 13:17 11/20/18 05:30 Zofran IVP 4 mg Q8HR PRN Administration Nausea And Vomiting Intake and Output 11/19/18 11/20/18 11/20/18 22:59 06:59 14:59 Intake Total 410 620 Output Total 590 Balance 410 30 Intake: IV 400 600 Dextrose 5%-0.45% NaCl 1, 300 600 000 ml @ 75 mls/hr IV . [id number] [facility] Rx#:[id number] Piperacillin-Tazobactam 3 100 .375 gm In Sodium Chloride 0.9% 100 ml @ 25 mls/hr IVPB Q8HR [facility] Rx# :[id number] Oral 10 20 Output: Urine 350 Oral Regurgitation 240 Other: Voiding Method Indwelling Catheter Indwelling Catheter Indwelling Catheter # Bowel Movements 0 Weight 71.8 kg Patient Weight 11/21/18 06:59 Weight 71.8 kg 11/20/18 07:50 11/20/18 07:50
[2018-11-20] MEDS ORDERED: HEPARIN SODIUM,PORCINE 5,000 UNIT/ML 1 ML VIAL IV PRN (15:06)
[2018-11-20] MEDS ORDERED: HEPARIN SODIUM,PORCINE 5,000 UNIT/ML 1 ML VIAL IV ONE (15:06)
[2018-11-20] MEDS ORDERED: HEPARIN SOD,PORK IN 0.45% NACL 25,000 UNIT in 0.45% NACL 1 250ML.BAG IV SCH (15:15)
--- NOTE | 2018-11-20 15:21 | P.PN ---
<Lakshmi Burnett A - Last Filed: 11/20/18 15:21> Subjective Progress Note Date: 11/20/18 CHIEF COMPLAINT: syncope, cancer HISTORY OF PRESENT ILLNESS: Patient is status post right colectomy and extensive lysis of adhesions performed on 11/16/2018. POD #4. Patient was nauseous this morning with episodes of dry heaves. Dr. Weiss evaluated patient at the bedside. NG tube was ordered. NG placed with minimal output. CXR confirmed NG not in the stomach. NG was re-attempted. Patient went into afib with RVR. Cardiology has since been consulted and patient to be moved to selective care unit. PHYSICAL EXAM: VITAL SIGNS: Reviewed. GENERAL: Well-developed in no acute distress. However patient nauseous and feels unwell. HEENT: No sclera icterus. Extraocular movements grossly intact. Moist buccal mucosa. Head is atraumatic, normocephalic. ABDOMEN: Soft. Mild distention. Minimal tenderness. Hypoactive bowel sounds. NEUROLOGIC: Alert and oriented. Cranial nerves II through XII grossly intact. ASSESSMENT: 1. Adenocarcinoma of the colon, s/p right colectomy and extensive lysis of adhesions 2. Postoperative ileus PLAN: NPO. Leave NG tube out per Dr. Weiss No plans for TPN at this time. Will re-evaluate tomorrow. Replace magnesium and potassium per protocol Cardiology following for afib with RVR. Patient to transfer to selective care unit. Nurse practitioner note has been reviewed by physician. Signing provider agrees with the documented findings, assessment, and plan of care. Objective - Vital Signs Vital signs: Vital Signs Temp 98.1 F 11/20/18 05:00 Pulse 63 11/20/18 05:00 Resp 18 11/20/18 08:00 BP 111/65 11/20/18 05:00 Pulse Ox 95 11/20/18 05:00 Intake & Output 11/19/18 11/20/18 11/20/18 18:59 06:59 18:59 Intake Total 200 1030 Output Total 0 590 Balance 200 440 Weight 71.8 kg Intake: IV 200 1000 Dextrose 5%-0.45% NaCl 1, 100 900 000 ml @ 75 mls/hr IV . [id number] [facility] Rx#:[id number] Piperacillin-Tazobactam 3 100 .375 gm In Sodium Chloride 0.9% 100 ml @ 25 mls/hr IVPB Q8HR [facility] Rx# :[id number] metroNIDAZOLE-NS PMX 500 100 mg In Saline 1 100ml.bag @ 100 mls/hr IVPB Q8HR [facility] Rx#:[id number] Oral 30 Output: Gastric Drainage 0 Urine 350 Oral Regurgitation 240 Other: Voiding Method Indwelling Catheter Indwelling Catheter Indwelling Catheter # Bowel Movements 0 - Labs CBC & Chem 7: 11/20/18 07:50 11/20/18 07:50 Labs: Abnormal Lab Results - Last 24 Hours (Table) 11/20/18 11/20/18 11/20/18 Range/Units 07:50 07:50 07:50 WBC 13.1 H (3.8-10.6) k/uL Hgb 10.1 L (11.4-16.0) gm/dL MCHC 29.7 L (31.0-37.0) g/dL RDW 16.5 H (11.5-15.5) % Neutrophils # 12.2 H (1.3-7.7) k/uL Lymphocytes # 0.5 L (1.0-4.8) k/uL Sodium 135 L (137-145) mmol/L Carbon Dioxide 20 L (22-30) mmol/L BUN 6 L (7-17) mg/dL Calcium 8.0 L (8.4-10.2) mg/dL Magnesium 1.5 L (1.6-2.3) mg/dL <Everett Weiss - Last Filed: 11/20/18 20:18> Subjective As above. Patient seen earlier this morning. She is complaining of nausea and vomiting. Also having slightly more abdominal discomfort. Attempts at reinserting the patient's nasogastric tube were unsuccessful as the tube was coiling within the distal esophagus. I suspect given the volume of emesis that the patient's nasogastric tube was never fully in the gastric lumen. Patient is afebrile. No obvious pneumoperitoneum at today's abdominal x-rays. Patient found to have atrial fibrillation with rapid ventricular response. She was transferred to stepdown. Continue close observation. Agree with plans for anticoagulation. Keep nothing by mouth for now. Reattempted nasogastric tube placement if further emesis occurs. Objective - Vital Signs Vital signs: Vital Signs Temp 97.7 F 11/20/18 14:07 Pulse 104 H 11/20/18 20:09 Resp 18 11/20/18 14:07 BP 135/65 11/20/18 14:07 Pulse Ox 93 L 11/20/18 14:07 Intake & Output 11/20/18 11/20/18 11/21/18 06:59 18:59 06:59 Intake Total 1030 Output Total 590 575 Balance 440 -575 Weight 71.8 kg Intake: IV 1000 Dextrose 5%-0.45% NaCl 1, 900 000 ml @ 75 mls/hr IV . [id number] [facility] Rx#:[id number] Piperacillin-Tazobactam 3 100 .375 gm In Sodium Chloride 0.9% 100 ml @ 25 mls/hr IVPB Q8HR [facility] Rx# :[id number] Oral 30 Output: Urine 350 575 Oral Regurgitation 240 Other: Voiding Method Indwelling Catheter Indwelling Catheter # Bowel Movements 0 - Labs CBC & Chem 7: 11/20/18 07:50 11/20/18 07:50 Labs: Abnormal Lab Results - Last 24 Hours (Table) 11/20/18 11/20/18 11/20/18 Range/Units 07:50 07:50 07:50 WBC 13.1 H (3.8-10.6) k/uL Hgb 10.1 L (11.4-16.0) gm/dL MCHC 29.7 L (31.0-37.0) g/dL RDW 16.5 H (11.5-15.5) % Neutrophils # 12.2 H (1.3-7.7) k/uL Lymphocytes # 0.5 L (1.0-4.8) k/uL PT (9.0-12.0) sec INR (<1.2) Sodium 135 L (137-145) mmol/L Carbon Dioxide 20 L (22-30) mmol/L BUN 6 L (7-17) mg/dL Calcium 8.0 L (8.4-10.2) mg/dL Magnesium 1.5 L (1.6-2.3) mg/dL 11/20/18 Range/Units 15:22 WBC (3.8-10.6) k/uL Hgb (11.4-16.0) gm/dL MCHC (31.0-37.0) g/dL RDW (11.5-15.5) % Neutrophils # (1.3-7.7) k/uL Lymphocytes # (1.0-4.8) k/uL PT 14.9 H (9.0-12.0) sec INR 1.5 H (<1.2) Sodium (137-145) mmol/L Carbon Dioxide (22-30) mmol/L BUN (7-17) mg/dL Calcium (8.4-10.2) mg/dL Magnesium (1.6-2.3) mg/dL Assessment and Plan (1) Colon cancer Current Visit: Yes Status: Acute Code(s): C18.9 - MALIGNANT NEOPLASM OF COLON, UNSPECIFIED SNOMED Code(s): 766428771
[2018-11-20 15:59] LABS: INR 1.5 (<1.2); Partial Thromboplastin Time 29.7 sec (22.0-30.0); Prothrombin Time 14.9 sec (9.0-12.0)
[2018-11-20] MEDS: DILTIAZEM 125 MG in SODIUM CHLORIDE 0.9% 100 ML IV SCH (16:05)
--- NOTE | 2018-11-20 16:32 | P.PN ---
Subjective Ms. Cardona is an 88-year-old female with a past medical history of colon cancer, hypertension, hyperlipidemia, COPD admitted for syncope secondary to dehydration. Patient's symptoms improved with IV fluids. Patient has colon cancer without evidence of metastasis so she underwent colectomy by Dr. Weiss on 11/15/18. On 11/18/18 - Overnight no active issues reported by nursing staff , patient is lying comfortably in the bed , appear sto be in distress. She complains of mild abdominal soreness. Patient still has epidural in place. She has Saldivar's catheter in place. She denies having any fever chills or rigors. No chest pain or palpitations. No cough or difficulty in breathing. She has been getting intermittent boluses of IV normal saline, to which she did respond. She is on Zosyn and Flagyl. Patient's blood pressure is still running on the lower side. She is getting IV fluids. Her urinary output is much better compared to . She is making around 25-30 mL every hour. Subjective 11/19/2018 Patient is seen today in the general medical floor. In the morning she still have the NG tube in. She still nothing by mouth. She had gas but regular bowel movements yesterday. Surgical site pain is minimal and controlled. Patient is hemodynamically stable. Her WBC is slightly worse at 16.8 KG, platelet count 244, hemoglobin 8.8. Sodium 134. Rest of the appendectomy was unremarkable. Surgical follow-up is appreciated to the recommend to discontinue epidural and Saldivar catheter. Continue with incentive spirometry. Patient will need repeat chest x-ray in 24-48 hours for her pneumothorax. As per oncology evaluation looks like patient is a stage IV malignancy, and surgery was then for palliation to prevent further obstruction in the future. Chemotherapy could be considered and 4-5 weeks when surgical site is healing 11/20/2018 Patient today has her NG tube removed twice after it was coiled around and for suspected ileus. However patient developed atrial fibrillation's with RVR. Her heart rate was at 150. Patient could not take her beta blockers and other pills. Cardiology team were consulted, patient was transferred to the select unit and patient was started on Cardizem drip and heparin drip upon gas turbine assembler recommendation. Also patient is on aspirin 81 mg to be started tomorrow. Her heart rate is better controlled currently at 117. Blood pressure 135/65. She is saturating 93% on room air. Leukocytosis is improving down to 13.1 K. INR is 1.5. Her potassium today 3.6 and extra replacement was provided for the patient. Sodium 135. Magnesium is 1.5. Abdominal x-ray: Ileus or enteritis. Chest x-ray: Basilar effusion and atelectasis. We will recheck thyroid function test. Family were at bedside and their questions were answered CONSTITUTIONAL: No fever, no malaise, no fatigue. HEENT: No recent visual problems or hearing problems. Denied any sore throat. CARDIOVASCULAR: no syncope. PULMONARY:, no hemoptysis. NEUROLOGICAL: No headaches, no weakness, no numbness. HEMATOLOGICAL: Denies any bleeding or petechiae. GENITOURINARY: Denies any burning micturition, frequency, or urgency. MUSCULOSKELETAL/RHEUMATOLOGICAL: Denies any joint pain, swelling, or any muscle pain. ENDOCRINE: Denies any polyuria or polydipsia. Medication: Albuterol, Norvasc, aspirin, Lipitor, Pulmicort, D5 half-normal saline, Cardizem drip, ferrous sulfate, heparin drip, levothyroxine, Reglan, Toprol, Flagyl, potassium and magnesium replacement, nitroglycerin, Zofran, Zosyn. Objective - Vital Signs Vital signs: Vital Signs Temp 97.7 F 11/20/18 14:07 Pulse 117 H 11/20/18 14:07 Resp 18 11/20/18 14:07 BP 135/65 11/20/18 14:07 Pulse Ox 93 L 11/20/18 14:07 Intake & Output 11/19/18 11/20/18 11/20/18 18:59 06:59 18:59 Intake Total 200 1030 Output Total 0 590 175 Balance 200 440 -175 Weight 71.8 kg Intake: IV 200 1000 Dextrose 5%-0.45% NaCl 1, 100 900 000 ml @ 75 mls/hr IV . [id number] [facility] Rx#:[id number] Piperacillin-Tazobactam 3 100 .375 gm In Sodium Chloride 0.9% 100 ml @ 25 mls/hr IVPB Q8HR [facility] Rx# :[id number] metroNIDAZOLE-NS PMX 500 100 mg In Saline 1 100ml.bag @ 100 mls/hr IVPB Q8HR [facility] Rx#:[id number] Oral 30 Output: Gastric Drainage 0 Urine 350 175 Oral Regurgitation 240 Other: Voiding Method Indwelling Catheter Indwelling Catheter Indwelling Catheter # Bowel Movements 0 - Exam GENERAL: The patient is alert and oriented x3, not in any acute distress. Well developed, well nourished. HEENT: No pallor. No icterus CARDIOVASCULAR: S1 and S2 present. No murmurs, rubs, or gallops. PULMONARY: Chest is clear to auscultation, no wheezing or crackles. -ABDOMEN: Soft, non distended. No tenderness. Abdominal binder in place. Saldivar's catheter in place. Bowel sounds could not be appreciated. Surgical wound is intact and in a dressing with no surrounding cellulitis MUSCULOSKELETAL: No joint swelling or deformity. EXTREMITIES: No cyanosis, clubbing. Mild pitting edema bilaterally. NEUROLOGICAL: Gross neurological examination did not reveal any focal deficits. SKIN: No rashes. - Labs CBC & Chem 7: 11/20/18 07:50 11/20/18 07:50 Labs: Abnormal Lab Results - Last 24 Hours (Table) 11/20/18 11/20/18 11/20/18 Range/Units 07:50 07:50 07:50 WBC 13.1 H (3.8-10.6) k/uL Hgb 10.1 L (11.4-16.0) gm/dL MCHC 29.7 L (31.0-37.0) g/dL RDW 16.5 H (11.5-15.5) % Neutrophils # 12.2 H (1.3-7.7) k/uL Lymphocytes # 0.5 L (1.0-4.8) k/uL PT (9.0-12.0) sec INR (<1.2) Sodium 135 L (137-145) mmol/L Carbon Dioxide 20 L (22-30) mmol/L BUN 6 L (7-17) mg/dL Calcium 8.0 L (8.4-10.2) mg/dL Magnesium 1.5 L (1.6-2.3) mg/dL 11/20/18 Range/Units 15:22 WBC (3.8-10.6) k/uL Hgb (11.4-16.0) gm/dL MCHC (31.0-37.0) g/dL RDW (11.5-15.5) % Neutrophils # (1.3-7.7) k/uL Lymphocytes # (1.0-4.8) k/uL PT 14.9 H (9.0-12.0) sec INR 1.5 H (<1.2) Sodium (137-145) mmol/L Carbon Dioxide (22-30) mmol/L BUN (7-17) mg/dL Calcium (8.4-10.2) mg/dL Magnesium (1.6-2.3) mg/dL Assessment and Plan Assessment: Colon Cancer - status post right colectomy right side pneumothorax, stable pulmonary nodule and pleural thickening concerning for metastatic disease A. fib with RVR. Cardiology evaluated the patient Syncope resolved Hypovolemic hyponatremia resolved COPD not in exacerbation Hypertension Hyperlipidemia DJD Leukocytosis , pt is currently on antibiotic Moderate protein calorie malnutrition Hypoalbuminemia Plan: Patient's urinary output much better in the last 24 hours. Surgery team recommend to dc epidural analagesia and saldivar catheter, She is to be continued on Zosyn postop. Patient is started on Cardizem and heparin for Send A. fib. Continue with breathing treatments for her COPD. ppulmonary input is appreciated, follow up with chest xray for the pneumonthorax. Continue with DVT prophylaxis. Further recommendations depending on the progress of the patient.
[2018-11-21] MEDS: PIPERACILLIN-TAZOBACTAM 3.375 GM in SODIUM CHLORIDE 0.9% 100 ML IVPB SCH ×3 (00:15→17:00)
[2018-11-21] MEDS: HYDROmorphone 0.5 MG/0.5 ML SYRINGE IVP PRN (02:55)
[2018-11-21] MEDS: ATORVASTATIN 10 MG TAB PO SCH ×2 (03:47→22:28)
[2018-11-21] MEDS: metroNIDAZOLE 500 MG TAB PO SCH ×3 (03:47→16:12)
[2018-11-21] MEDS: DEXTROSE 5%-0.45% NACL 1,000 ML IV SCH ×3 (03:47→18:24)
[2018-11-21] MEDS: FERROUS SULFATE ORAL ELIXIR 300 MG/5 ML CUP PO SCH ×3 (03:47→22:28)
[2018-11-21] MEDS: METOCLOPRAMIDE 5 MG/ML 2 ML VIAL IVP SCH ×3 (06:21→17:00)
[2018-11-21 06:58] LABS: Anisocytosis Slight; Basophils % (A) 0 %; Eosinophils % (A) 0 %; HCT 34.1 % (34.0-46.0); Hypochromasia Marked; Lymphocytes # (A) 0.5 k/uL (1.0-4.8); Lymphocytes % (A) 4 %; MCH 25.4 pg (25.0-35.0); MCHC 29.2 g/dL (31.0-37.0); MCV 86.7 fL (80.0-100.0); Monocytes # (A) 0.3 k/uL (0-1.0); Monocytes % (A) 3 %; Neutrophils # (A) 10.8 k/uL (1.3-7.7); Neutrophils % (A) 92 %; Platelet Count 333 k/uL (150-450); RBC 3.93 m/uL (3.80-5.40); RDW 16.6 % (11.5-15.5); WBC 11.8 k/uL (3.8-10.6)
[2018-11-21 08:17] LABS: Calcium 8.2 mg/dL (8.4-10.2); Magnesium 1.8 mg/dL (1.6-2.3); Potassium 3.9 mmol/L (3.5-5.1)
[2018-11-21] MEDS: BUDESONIDE 1 MG/2 ML NEBU INHALATION SCH ×2 (08:42→20:47)
[2018-11-21] MEDS: FORMOTEROL FUMARATE 20 MCG/2 ML NEBU INHALATION SCH ×2 (08:43→20:47)
[2018-11-21] MEDS: IPRATROPIUM-ALBUTEROL 3 ML NEB INHALATION SCH ×3 (08:43→20:47)
--- NOTE | 2018-11-21 08:59 | P.PN ---
Subjective Ms. Cardona is an 88-year-old female with a past medical history of colon cancer, hypertension, hyperlipidemia, COPD admitted for syncope secondary to dehydration. Patient's symptoms improved with IV fluids. Patient has colon cancer without evidence of metastasis so she underwent colectomy by Dr. Weiss on 11/15/18. On 11/18/18 - Overnight no active issues reported by nursing staff , patient is lying comfortably in the bed , appear sto be in distress. She complains of mild abdominal soreness. Patient still has epidural in place. She has Saldivar's catheter in place. She denies having any fever chills or rigors. No chest pain or palpitations. No cough or difficulty in breathing. She has been getting intermittent boluses of IV normal saline, to which she did respond. She is on Zosyn and Flagyl. Patient's blood pressure is still running on the lower side. She is getting IV fluids. Her urinary output is much better compared to . She is making around 25-30 mL every hour. Subjective 11/19/2018 Patient is seen today in the general medical floor. In the morning she still have the NG tube in. She still nothing by mouth. She had gas but regular bowel movements yesterday. Surgical site pain is minimal and controlled. Patient is hemodynamically stable. Her WBC is slightly worse at 16.8 KG, platelet count 244, hemoglobin 8.8. Sodium 134. Rest of the appendectomy was unremarkable. Surgical follow-up is appreciated to the recommend to discontinue epidural and Saldivar catheter. Continue with incentive spirometry. Patient will need repeat chest x-ray in 24-48 hours for her pneumothorax. As per oncology evaluation looks like patient is a stage IV malignancy, and surgery was then for palliation to prevent further obstruction in the future. Chemotherapy could be considered and 4-5 weeks when surgical site is healing 11/20/2018 Patient today has her NG tube removed twice after it was coiled around and for suspected ileus. However patient developed atrial fibrillation's with RVR. Her heart rate was at 150. Patient could not take her beta blockers and other pills. Cardiology team were consulted, patient was transferred to the select unit and patient was started on Cardizem drip and heparin drip upon city designer recommendation. Also patient is on aspirin 81 mg to be started tomorrow. Her heart rate is better controlled currently at 117. Blood pressure 135/65. She is saturating 93% on room air. Leukocytosis is improving down to 13.1 K. INR is 1.5. Her potassium today 3.6 and extra replacement was provided for the patient. Sodium 135. Magnesium is 1.5. Abdominal x-ray: Ileus or enteritis. Chest x-ray: Basilar effusion and atelectasis. We will recheck thyroid function test. Family were at bedside and their questions were answered 11/21/2018 Patient currently in the select unit. She was moved upstairs yesterday after she develops A. fib episode. Patient developed severe heartburn overnight with couple episodes of vomiting. Her pain from heartburn this morning is a little bit better. She needed one dose of Dilaudid early this morning. This could be related to the NG tube placed yesterday. Now patient without NG tube. She remains nothing by mouth. No abdominal pain, with no pain at the surgical site for her colonic cancer resection. . No chest pain. No dyspnea. She is fully awake and oriented. She is passing gas but no bowel movements. Abdominal x-ray from yesterday showing ileus versus antritis. Underwent repeat chest x-ray from today. Protonix 40 mg twice a day. She remains on Cardizem drip and heparin drip. Heart rate today is 64. Blood pressure 142/65. 6 saturating 94% and 2 L nasal cannula. Leukocytosis improving down to 11.8 K. Hemoglobin stable at 10.0. Sodium 134. Creatinine 1.1. CONSTITUTIONAL: No fever, no malaise, no fatigue. HEENT: No recent visual problems or hearing problems. Denied any sore throat. CARDIOVASCULAR: no syncope. PULMONARY:, no hemoptysis. NEUROLOGICAL: No headaches, no weakness, no numbness. HEMATOLOGICAL: Denies any bleeding or petechiae. GENITOURINARY: Denies any burning micturition, frequency, or urgency. MUSCULOSKELETAL/RHEUMATOLOGICAL: Denies any joint pain, swelling, or any muscle pain. ENDOCRINE: Denies any polyuria or polydipsia. Medication: Albuterol, Norvasc, aspirin, Lipitor, Pulmicort, D5 half-normal saline, Cardizem drip, ferrous sulfate, heparin drip, levothyroxine, Reglan, Toprol, Flagyl, potassium and magnesium replacement, nitroglycerin, Zofran, Zosyn. Protonix Objective - Vital Signs Vital signs: Vital Signs Temp 98.1 F 11/21/18 04:00 Pulse 64 11/21/18 04:00 Resp 18 11/21/18 04:00 BP 142/65 11/21/18 04:00 Pulse Ox 94 L 11/20/18 20:00 Intake & Output 11/20/18 11/21/18 11/21/18 18:59 06:59 18:59 Output Total 575 575 Balance -575 -575 Weight 71.8 kg 77.5 kg Output: Urine 575 575 Other: Voiding Method Indwelling Catheter Indwelling Catheter # Voids 2 - Exam GENERAL: The patient is alert and oriented x3, not in any acute distress. Well developed, well nourished. HEENT: No pallor. No icterus CARDIOVASCULAR: S1 and S2 present. No murmurs, rubs, or gallops. PULMONARY: Chest is clear to auscultation, no wheezing or crackles. -ABDOMEN: Soft, non distended. No tenderness. Abdominal binder in place. Saldivar's catheter in place. Bowel sounds could not be appreciated. Surgical wound is intact and in a dressing with no surrounding cellulitis MUSCULOSKELETAL: No joint swelling or deformity. EXTREMITIES: No cyanosis, clubbing. Mild pitting edema bilaterally. NEUROLOGICAL: Gross neurological examination did not reveal any focal deficits. SKIN: No rashes. - Labs CBC & Chem 7: 11/21/18 05:51 11/21/18 05:51 Labs: Abnormal Lab Results - Last 24 Hours (Table) 11/20/18 11/20/18 11/20/18 Range/Units 07:50 07:50 07:50 WBC 13.1 H (3.8-10.6) k/uL Hgb 10.1 L (11.4-16.0) gm/dL MCHC 29.7 L (31.0-37.0) g/dL RDW 16.5 H (11.5-15.5) % Neutrophils # 12.2 H (1.3-7.7) k/uL Lymphocytes # 0.5 L (1.0-4.8) k/uL PT (9.0-12.0) sec INR (<1.2) APTT (22.0-30.0) sec Sodium 135 L (137-145) mmol/L Chloride (98-107) mmol/L Carbon Dioxide 20 L (22-30) mmol/L BUN 6 L (7-17) mg/dL Creatinine (0.52-1.04) mg/dL Glucose (74-99) mg/dL Calcium 8.0 L (8.4-10.2) mg/dL Magnesium 1.5 L (1.6-2.3) mg/dL 11/20/18 11/20/18 11/21/18 Range/Units 15:22 20:43 05:51 WBC (3.8-10.6) k/uL Hgb (11.4-16.0) gm/dL MCHC (31.0-37.0) g/dL RDW (11.5-15.5) % Neutrophils # (1.3-7.7) k/uL Lymphocytes # (1.0-4.8) k/uL PT 14.9 H (9.0-12.0) sec INR 1.5 H (<1.2) APTT 62.7 H (22.0-30.0) sec Sodium 134 L (137-145) mmol/L Chloride 108 H (98-107) mmol/L Carbon Dioxide 18 L (22-30) mmol/L BUN (7-17) mg/dL Creatinine 1.11 H (0.52-1.04) mg/dL Glucose 130 H (74-99) mg/dL Calcium 8.2 L (8.4-10.2) mg/dL Magnesium (1.6-2.3) mg/dL 11/21/18 11/21/18 Range/Units 05:51 06:04 WBC 11.8 H (3.8-10.6) k/uL Hgb 10.0 L (11.4-16.0) gm/dL MCHC 29.2 L (31.0-37.0) g/dL RDW 16.6 H (11.5-15.5) % Neutrophils # 10.8 H (1.3-7.7) k/uL Lymphocytes # 0.5 L (1.0-4.8) k/uL PT (9.0-12.0) sec INR (<1.2) APTT 46.5 H (22.0-30.0) sec Sodium (137-145) mmol/L Chloride (98-107) mmol/L Carbon Dioxide (22-30) mmol/L BUN (7-17) mg/dL Creatinine (0.52-1.04) mg/dL Glucose (74-99) mg/dL Calcium (8.4-10.2) mg/dL Magnesium (1.6-2.3) mg/dL Assessment and Plan Assessment: Colon Cancer - status post right colectomy right side pneumothorax, stable pulmonary nodule and pleural thickening concerning for metastatic disease A. fib with RVR. Cardiology evaluated the patient Syncope resolved Epigastric Heartburn Hypovolemic hyponatremia resolved COPD not in exacerbation Hypertension Hyperlipidemia DJD Leukocytosis , pt is currently on antibiotic Moderate protein calorie malnutrition Hypoalbuminemia Plan: Patient's urinary output much better in the last 24 hours. Surgery team recommend to dc epidural analagesia and saldivar catheter, She is to be continued on Zosyn and Flagyl postop. Patient is started on Cardizem and heparin for Send A. fib. Continue with breathing treatments for her COPD. ppulmonary input is appreciated, follow up with chest xray for the pneumonthorax. Continue with DVT prophylaxis. Further recommendations depending on the progress of the patient.
[2018-11-21] MEDS ORDERED: FUROSEMIDE 10 MG/ML 4 ML VIAL IV STA (09:31)
[2018-11-21] MEDS: LEVOTHYROXINE 137 MCG TAB PO SCH (09:33)
[2018-11-21] MEDS: ASPIRIN 81 MG PO SCH (09:33)
[2018-11-21] MEDS: amLODIPine 10 MG TAB PO SCH (09:33)
--- NOTE | 2018-11-21 09:40 | XR ---
EXAMINATION TYPE: XR chest 1V DATE OF EXAM: 11/21/2018 COMPARISON: 11/20/2018 HISTORY: Epigastric pain TECHNIQUE: Single frontal view of the chest is obtained. FINDINGS: Enteric tube has been removed in the interim. Aortic stent and postsurgical changes of the upper abdomen are partially visualized. Curvilinear area at the lung bases appears decreased from th e prior and 1 correlated with the prior CT of 11/14/2018 appears to represent some trapped lung surrou nding the loculated left pleural effusion. Right pleural effusion is also similar in degree right bas ilar atelectasis noted. No pulmonary vascular congestion. Mild cardiomediastinal silhouette enlargeme nt. Evidence of prior chronic rotator cuff tear on the right with high riding humeral head. IMPRESSION: Bilateral pleural effusions and bilateral airspace disease, likely atelectasis. Enteric tube has been removed in the interim.
[2018-11-21] MEDS: DILTIAZEM 125 MG in SODIUM CHLORIDE 0.9% 100 ML IV SCH (10:12)
[2018-11-21] MEDS: PANTOPRAZOLE 40 MG/10 ML VIAL IVP SCH ×2 (10:13→22:27)
[2018-11-21] MEDS ORDERED: ONDANSETRON 4 MG/2 ML VIAL IVP PRN (10:45)
--- NOTE | 2018-11-21 10:55 | P.PN ---
<Lakshmi Burnett A - Last Filed: 11/21/18 10:51> Subjective Progress Note Date: 11/21/18 CHIEF COMPLAINT: syncope, cancer HISTORY OF PRESENT ILLNESS: Patient is status post right colectomy and extensive lysis of adhesions performed on 11/16/2018. POD #5. Patient examined at the bedside this morning. Daughter present. Patient currently resting comfortably. Patients daughter reports the patient had two episodes of small emesis last night around 1900 and 2300. Patient reports having severe heartburn overnight but states it has improved this morning. Patient reports burping and nausea when she burps but overall feels improved from yesterday. She denies abdominal pain. She reports passing flatus. No bowel movement. PHYSICAL EXAM: VITAL SIGNS: Reviewed. GENERAL: Well-developed in no acute distress. HEENT: No sclera icterus. Extraocular movements grossly intact. Moist buccal mucosa. Head is atraumatic, normocephalic. ABDOMEN: Soft. Nondistended. Nontender. Hypoactive bowel sounds. NEUROLOGIC: Alert and oriented. Cranial nerves II through XII grossly intact. ASSESSMENT: 1. Adenocarcinoma of the colon, s/p right colectomy and extensive lysis of adhesions 2. Postoperative ileus PLAN: NPO except for any cardiac medications No NG at this time unless patient begins vomiting Initiate PPN today Continue Reglan, Zofran, and Protonix New optifoam ordered. Change abdominal dressing today. Nurse practitioner note has been reviewed by physician. Signing provider agrees with the documented findings, assessment, and plan of care. Objective - Vital Signs Vital signs: Vital Signs Temp 98.3 F 11/21/18 08:00 Pulse 93 11/21/18 08:00 Resp 18 11/21/18 08:00 BP 122/71 11/21/18 08:00 Pulse Ox 95 11/21/18 08:00 Intake & Output 11/20/18 11/21/18 11/21/18 18:59 06:59 18:59 Intake Total 90.583 Output Total 575 575 Balance -575 -575 90.583 Weight 71.8 kg 77.5 kg Intake: Intake, IV Titration 90.583 Amount Diltiazem 125 mg In 90.583 Sodium Chloride 0.9% 100 ml @ 5 MG/HR 5 mls/hr IV .Q24H [facility] Rx#:[id number] Output: Urine 094 575 Other: Voiding Method Indwelling Catheter Indwelling Catheter Indwelling Catheter # Voids 2 - Labs CBC & Chem 7: 11/21/18 05:51 11/21/18 05:51 Labs: Abnormal Lab Results - Last 24 Hours (Table) 11/20/18 11/20/18 11/21/18 Range/Units 15:22 20:43 05:51 WBC (3.8-10.6) k/uL Hgb (11.4-16.0) gm/dL MCHC (31.0-37.0) g/dL RDW (11.5-15.5) % Neutrophils # (1.3-7.7) k/uL Lymphocytes # (1.0-4.8) k/uL PT 14.9 H (9.0-12.0) sec INR 1.5 H (<1.2) APTT 62.7 H (22.0-30.0) sec Sodium 134 L (137-145) mmol/L Chloride 108 H (98-107) mmol/L Carbon Dioxide 18 L (22-30) mmol/L Creatinine 1.11 H (0.52-1.04) mg/dL Glucose 130 H (74-99) mg/dL Calcium 8.2 L (8.4-10.2) mg/dL 11/21/18 11/21/18 Range/Units 05:51 06:04 WBC 11.8 H (3.8-10.6) k/uL Hgb 10.0 L (11.4-16.0) gm/dL MCHC 29.2 L (31.0-37.0) g/dL RDW 16.6 H (11.5-15.5) % Neutrophils # 10.8 H (1.3-7.7) k/uL Lymphocytes # 0.5 L (1.0-4.8) k/uL PT (9.0-12.0) sec INR (<1.2) APTT 46.5 H (22.0-30.0) sec Sodium (137-145) mmol/L Chloride (98-107) mmol/L Carbon Dioxide (22-30) mmol/L Creatinine (0.52-1.04) mg/dL Glucose (74-99) mg/dL Calcium (8.4-10.2) mg/dL <Kelyjulio cEverett - Last Filed: 11/21/18 21:51> Subjective As above. Patient doing better today. Denies pain currently. Still nauseated. No vomiting today. 2 bowel movements today. Pathology noted. Continue diuresis. Continue anticoagulation for A. fib. Continue increasing activity as tolerated. Objective - Vital Signs Vital signs: Vital Signs Temp 98.2 F 11/21/18 16:00 Pulse 104 H 11/21/18 21:16 Resp 18 11/21/18 16:00 BP 123/69 11/21/18 16:00 Pulse Ox 97 11/21/18 20:50 Intake & Output 11/21/18 11/21/18 11/22/18 06:59 18:59 06:59 Intake Total 720.583 100 Output Total 575 217 400 Balance -575 503.583 -300 Weight 77.5 kg 77.5 kg Intake: IV 630 100 Dextrose 5%-0.45% NaCl 1, 450 000 ml @ 50 mls/hr IV . Q20H [facility] Rx#:[id number] Invasive Line 4 70 Invasive Line 5 10 Piperacillin-Tazobactam 3 100 100 .375 gm In Sodium Chloride 0.9% 100 ml @ 25 mls/hr IVPB Q8HR [facility] Rx# :[id number] Intake, IV Titration 90.583 Amount Diltiazem 125 mg In 90.583 Sodium Chloride 0.9% 100 ml @ 5 MG/HR 5 mls/hr IV .Q24H [facility] Rx#:[id number] Output: Urine 575 217 400 Other: Voiding Method Indwelling Catheter Indwelling Catheter # Voids 2 # Bowel Movements 2 - Labs CBC & Chem 7: 11/21/18 05:51 11/21/18 05:51 Labs: Abnormal Lab Results - Last 24 Hours (Table) 11/21/18 11/21/18 11/21/18 Range/Units 05:51 05:51 06:04 WBC 11.8 H (3.8-10.6) k/uL Hgb 10.0 L (11.4-16.0) gm/dL MCHC 29.2 L (31.0-37.0) g/dL RDW 16.6 H (11.5-15.5) % Neutrophils # 10.8 H (1.3-7.7) k/uL Lymphocytes # 0.5 L (1.0-4.8) k/uL APTT 46.5 H (22.0-30.0) sec Sodium 134 L (137-145) mmol/L Chloride 108 H (98-107) mmol/L Carbon Dioxide 18 L (22-30) mmol/L Creatinine 1.11 H (0.52-1.04) mg/dL Glucose 130 H (74-99) mg/dL Calcium 8.2 L (8.4-10.2) mg/dL Albumin (3.5-5.0) g/dL 11/21/18 Range/Units 12:30 WBC (3.8-10.6) k/uL Hgb (11.4-16.0) gm/dL MCHC (31.0-37.0) g/dL RDW (11.5-15.5) % Neutrophils # (1.3-7.7) k/uL Lymphocytes # (1.0-4.8) k/uL APTT (22.0-30.0) sec Sodium (137-145) mmol/L Chloride (98-107) mmol/L Carbon Dioxide (22-30) mmol/L Creatinine (0.52-1.04) mg/dL Glucose (74-99) mg/dL Calcium (8.4-10.2) mg/dL Albumin 1.9 L (3.5-5.0) g/dL Assessment and Plan (1) Colon cancer Current Visit: Yes Status: Acute Code(s): C18.9 - MALIGNANT NEOPLASM OF COLON, UNSPECIFIED SNOMED Code(s): 719320495
[2018-11-21] MEDS: METOPROLOL SUCCINATE (ER) 50 MG TAB.ER.24H PO SCH (12:01)
[2018-11-21 13:22] LABS: Albumin 1.9 g/dL (3.5-5.0)
--- NOTE | 2018-11-21 14:33 | P.PN ---
Subjective Progress Note Date: 11/21/18 This is a pleasant 88-year-old female past medical history significant for hypertension, COPD, dyslipidemia, hypothyroidism, aortic aneurysm s/p repair with Dr. King at [facility] 2 months ago and peripheral vascular disease. She denies history of coronary artery disease or atrial fibrillation and has never had a cardiac catheterization in the past. She was admitted to the hospital 11/12 after suffering a syncopal episode. Apparently EMS recorded she was in and out of atrial fibrillation. EKG captured on arrival initially revealed sinus mechanism wiwth PAC's and T-wave abnormalities laterally. She had also recently been diagnosed with adenocarcinoma of the colon and was in the initial stages of consulting with Dr. Daniels. Therefore Dr. Weiss was consulted to see her on this admission and subsequently thereafter she underwent right colectomy on 11/15. Another EKG was obtained on 11/18 showing atrial fibrillation with mildly rapid ventricular response heart rate 105. NG tube was removed yesterday however today she was nauseated with abdominal discomfort and NG tube was attempted to be placed again. During that event she went back into atrial fibrillation with rapid ventricular response with heart rates in the 103-140 range. The patient is seen and examined with multiple family members at the bedside. She denies chest pain, shortness of breath, dizziness or palpitations. She continues to be quite nauseated and is unable to tolerate any PO medications. Lengthy discussion had with the family members and there is no prior history of atrial fibrillation prior to this admission. When she was in [facility] 2 months ago she was having significant GI bleeding while on aspirin that prompted her to have colonoscopy which found her mass. At that time aspirin was discontinued. Chest x-ray obtained this morning reveals basilar effusions and associated atelectasis some improvement in aeration of the upper lobes. Laboratory data reviewed, WBC 13.1, hemoglobin 10.1, platelets 292, sodium 135, potassium 3.6, creatinine 0.82, magnesium 1.5, TSH 0.033, LDL 49, HDL 45, cardiac enzymes on admission negative 3. 11/21/2018 Patient was seen and examined this morning, she continues to be in atrial fibrillation, on a Cardizem drip at 5 mg per hour. They are going to attempt to give her oral medications that today, and successful we will discontinue the Cardizem drip and start the patient on Eliquis. Overall the patient states that she's feeling significantly better today. Blood pressure 120/70 with a heart rate in the 90s, 95% on room air. Patient will have PICC line placed today. Following that we will discontinue the heparin and initiate her Eliquis. Objective - Vital Signs Vital signs: Vital Signs Temp 97.7 F 11/21/18 12:00 Pulse 92 11/21/18 12:00 Resp 18 11/21/18 12:00 BP 121/70 11/21/18 12:00 Pulse Ox 95 11/21/18 12:00 Intake & Output 11/20/18 11/21/18 11/21/18 18:59 06:59 18:59 Intake Total 700.583 Output Total 575 575 217 Balance -575 -575 483.583 Weight 71.8 kg 77.5 kg 77.5 kg Intake: IV 610 Dextrose 5%-0.45% NaCl 1, 450 000 ml @ 75 mls/hr IV . [id number] [facility] Rx#:[id number] Invasive Line 4 60 Piperacillin-Tazobactam 3 100 .375 gm In Sodium Chloride 0.9% 100 ml @ 25 mls/hr IVPB Q8HR [facility] Rx# :[id number] Intake, IV Titration 90.583 Amount Diltiazem 125 mg In 90.583 Sodium Chloride 0.9% 100 ml @ 5 MG/HR 5 mls/hr IV .Q24H [facility] Rx#:[id number] Output: Urine 575 575 217 Other: Voiding Method Indwelling Catheter Indwelling Catheter Indwelling Catheter # Voids 2 # Bowel Movements 2 - Exam GENERAL: This is a 88-year-old female in no apparent distress at the time of my examination. HEENT: Head is atraumatic, normocephalic. Pupils are equal, round. Sclerae anicteric. Conjunctivae are clear. Mucous membranes of the mouth are moist. Neck is supple. There is no jugular venous distention. No carotid bruit is heard. LUNGS: Clear to auscultation no wheezes, rales or rhonchi. No chest wall tenderness is noted on palpation or with deep breathing. Diminished bilaterally. HEART: Irregular rate and rhythm with systolic ejection murmur at the base, no rubs or gallops. S1 and S2 heard. Distant heart sounds. ABDOMEN: Soft, nontender. EXTREMITIES: Non-pitting edema to bilateral upper extremities. 1+ pitting edema bilateral lower extremities. VASCULAR: Radial and dorsalis pedis pulses palpated, no evidence of clubbing. NEUROLOGIC: Patient is awake, alert and oriented. - Labs CBC & Chem 7: 11/21/18 05:51 11/21/18 05:51 Labs: Abnormal Lab Results - Last 24 Hours (Table) 11/20/18 11/20/18 11/21/18 Range/Units 15:22 20:43 05:51 WBC (3.8-10.6) k/uL Hgb (11.4-16.0) gm/dL MCHC (31.0-37.0) g/dL RDW (11.5-15.5) % Neutrophils # (1.3-7.7) k/uL Lymphocytes # (1.0-4.8) k/uL PT 14.9 H (9.0-12.0) sec INR 1.5 H (<1.2) APTT 62.7 H (22.0-30.0) sec Sodium 134 L (137-145) mmol/L Chloride 108 H (98-107) mmol/L Carbon Dioxide 18 L (22-30) mmol/L Creatinine 1.11 H (0.52-1.04) mg/dL Glucose 130 H (74-99) mg/dL Calcium 8.2 L (8.4-10.2) mg/dL Albumin (3.5-5.0) g/dL 11/21/18 11/21/18 11/21/18 Range/Units 05:51 06:04 12:30 WBC 11.8 H (3.8-10.6) k/uL Hgb 10.0 L (11.4-16.0) gm/dL MCHC 29.2 L (31.0-37.0) g/dL RDW 16.6 H (11.5-15.5) % Neutrophils # 10.8 H (1.3-7.7) k/uL Lymphocytes # 0.5 L (1.0-4.8) k/uL PT (9.0-12.0) sec INR (<1.2) APTT 46.5 H (22.0-30.0) sec Sodium (137-145) mmol/L Chloride (98-107) mmol/L Carbon Dioxide (22-30) mmol/L Creatinine (0.52-1.04) mg/dL Glucose (74-99) mg/dL Calcium (8.4-10.2) mg/dL Albumin 1.9 L (3.5-5.0) g/dL Assessment and Plan Plan: ASSESSMENT AND PlAN #1 Paroxysmal atrial fibrillation with rapid ventricular response, new onset this admission. 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 Exact procedures and information unavailable at this time. #9 Hypothyroidism with suppressed TSH, adjustment of daily supplementation per primary care team. Plan Patient is scheduled today to have a PICC line placed, following that, the IV heparin will be discontinued and she will be started on Eliquis, we will also discontinue the IV Cardizem and increase oral beta megan for more optimal heart rate control. DNP note has been reviewed, I agree with a documented findings and plan of care. Patient was seen and examined.
[2018-11-21] MEDS ORDERED: MVI, ADULT NO.4 WITH VIT K 10 ML, TRACE (CONC-1ML/DOSE) 1 ML in AMINO ACID 5%-D15W+LYTE... IV ONE ×3 (15:00)
--- NOTE | 2018-11-21 15:03 | IR ---
EXAMINATION TYPE: IR cvc insert >=5 years DATE OF EXAM: 11/21/2018 COMPARISON: NONE CLINICAL HISTORY: Cancer, status post right colectomy, Needs long-term intravenous access for total p arenteral nutrition. PROCEDURE: After informed consent, the skin overlying the right basilic vein was localized with ultrasound and n oted to be compressible and patent. An ultrasound image was obtained and submitted on the patient's chart. The overlying skin was prepped and draped and Lidocaine was used for local anesthesia. A ski n kip was made with a scalpel. Access was gained to the vein under ultrasound guidance with a 21 ga uge needle and a 0.018 inch wire was advanced. Access site was dilated with Peel-Away sheath and cat heter tailored to the appropriate length and advanced such that the distal tip is at the cavoatrial j unction. Spot image was obtained verifying placement. Catheter was fixed to the skin and a sterile dressing was placed following hemostasis. Catheter was aspirated and flushed with saline. Patient w as discharged in stable condition without complication. Maximal barrier technique is utilized. Ultra sound image is documented on the chart. Ultrasound used with sterile technique. Fluoro time and fluoroscopic images submitted to document procedure: 45 intraoperative C-arm images, 0.2 minutes fluoroscopy time IMPRESSION: STATUS POST ULTRASOUND AND FLUOROSCOPIC GUIDED PICC LINE PLACEMENT, READY FOR USE. THIS PROCEDURE WAS PERFORMED BY THE UNDERSIGNED.
[2018-11-21] MEDS: APIXABAN 2.5 MG TABLET PO SCH ×2 (16:11→18:02)
[2018-11-21] MEDS: FAT EMULSION 20% 250 ML in EMPTY BAG 1 BAG IV SCH (16:22)
[2018-11-21] MEDS: INSULIN ASPART (NovoLOG) 100 UNIT/ML VIAL SQ SCH (18:24)
[2018-11-21] MEDS: METOPROLOL TARTRATE 50 MG TAB PO SCH (22:27)
[2018-11-21 23:52] LABS: Glucose,Whole Blood 162 mg/dL (75-99)
[2018-11-22] MEDS: INSULIN ASPART (NovoLOG) 100 UNIT/ML VIAL SQ SCH ×5 (00:05→23:13)
[2018-11-22] MEDS: metroNIDAZOLE 500 MG TAB PO SCH ×4 (00:15→23:15)
[2018-11-22] MEDS: PIPERACILLIN-TAZOBACTAM 3.375 GM in SODIUM CHLORIDE 0.9% 100 ML IVPB SCH ×4 (00:15→23:14)
[2018-11-22 06:00] LABS: Glucose,Whole Blood 166 mg/dL (75-99)
[2018-11-22] MEDS: METOCLOPRAMIDE 5 MG/ML 2 ML VIAL IVP SCH ×5 (06:14→23:15)
[2018-11-22 06:30] LABS: Anisocytosis Slight; Basophils % (A) 0 %; Eosinophils % (A) 0 %; HCT 29.7 % (34.0-46.0); HGB 9.1 gm/dL (11.4-16.0); Hypochromasia Moderate; Lymphocytes # (A) 0.6 k/uL (1.0-4.8); Lymphocytes % (A) 5 %; MCH 25.4 pg (25.0-35.0); MCHC 30.6 g/dL (31.0-37.0); MCV 83.2 fL (80.0-100.0); Mean Platelet Volume 7.8; Monocytes # (A) 0.5 k/uL (0-1.0); Monocytes % (A) 4 %; Neutrophils # (A) 10.5 k/uL (1.3-7.7); Neutrophils % (A) 89 %; Platelet Count 342 k/uL (150-450); RBC 3.58 m/uL (3.80-5.40); RDW 17.1 % (11.5-15.5); WBC 11.7 k/uL (3.8-10.6)
[2018-11-22 06:31] LABS: Ionized Calcium 4.8 mg/dL (4.5-5.3)
[2018-11-22 06:42] LABS: Calcium 7.5 mg/dL (8.4-10.2); Magnesium 1.6 mg/dL (1.6-2.3); Phosphorus 2.5 mg/dL (2.5-4.5); Potassium 2.8 mmol/L (3.5-5.1)
[2018-11-22] MEDS: IPRATROPIUM-ALBUTEROL 3 ML NEB INHALATION SCH ×3 (08:40→19:26)
[2018-11-22] MEDS: FORMOTEROL FUMARATE 20 MCG/2 ML NEBU INHALATION SCH ×2 (08:40→19:26)
[2018-11-22] MEDS: BUDESONIDE 1 MG/2 ML NEBU INHALATION SCH ×2 (08:40→19:26)
--- NOTE | 2018-11-22 08:46 | XR ---
EXAMINATION TYPE: XR chest 1V DATE OF EXAM: 11/22/2018 COMPARISON: 11/21/2018 INDICATION: Follow-up previous abnormal chest TECHNIQUE: Single frontal view of the chest is obtained. FINDINGS: The heart size is normal. The pulmonary vasculature is normal. Small right and [id number] left pleural effusions are present. Left pleural effusion may be sl ightly increased over the interval. PICC line enters on the right with the tip in the superior vena c tc right atrial junction. EKG leads overlie the chest. Note is made of chronic rotator cuff tear on the right. IMPRESSION: 1. Increasing small to moderate pleural effusions. 2. Placement of a PICC line with the tip in the superior vena cava right atrial junction region.
[2018-11-22] MEDS ORDERED: FUROSEMIDE 20 MG TAB PO SCH (09:00)
[2018-11-22] MEDS ORDERED: Potassium Replacement Protocol 1 EACH MISC MISCELLANE PRN (09:32)
[2018-11-22] MEDS ORDERED: Magnesium Replacement Protocol 1 EACH MISC MISCELLANE PRN (09:32)
[2018-11-22] MEDS: PANTOPRAZOLE 40 MG/10 ML VIAL IVP SCH ×2 (10:39→21:43)
[2018-11-22] MEDS: APIXABAN 2.5 MG TABLET PO SCH ×2 (10:39→21:44)
[2018-11-22] MEDS: LEVOTHYROXINE 137 MCG TAB PO SCH (10:40)
[2018-11-22] MEDS: FERROUS SULFATE ORAL ELIXIR 300 MG/5 ML CUP PO SCH ×2 (10:41→23:14)
[2018-11-22] MEDS: METOPROLOL TARTRATE 50 MG TAB PO SCH ×2 (10:42→21:44)
--- NOTE | 2018-11-22 11:20 | P.PN ---
Subjective Progress Note Date: 11/22/18 Principal diagnosis: Paroxysmal atrial fibrillation This is a pleasant 88-year-old female patient with a past medical history significant for hypertension, dyslipidemia, COPD, thyroid disorder, and history of abdominal aortic aneurysm status post repair, who was admitted to the hospital and underwent right colectomy on November 15. The patient subsequently went into atrial fibrillation with RVR and we consulted to see the patient because of that. On follow-up with the patient today, November 222018, overall she still feeling weak. She denies any chest pain or chest discomfort or shortness of breath. She has been feeling nauseated. She continues to be in atrial fibrillatio n/multifocal atrial tachycardia but the heart rate has been controlled. She is on metoprolol by mouth. Also she is on oral anticoagulation with Eliquis. She underwent an echocardiogram which revealed normal LV function. Objective - Vital Signs Vital signs: Vital Signs Temp 97.9 F 11/22/18 08:00 Pulse 70 11/22/18 08:00 Resp 18 11/22/18 08:00 BP 116/58 11/22/18 08:00 Pulse Ox 99 11/22/18 08:00 Intake & Output 11/21/18 11/22/18 11/22/18 18:59 06:59 18:59 Intake Total 720.583 160 10 Output Total 217 1350 650 Balance 503.583 -1190 -640 Weight 77.5 kg 77 kg 77 kg Intake: IV 630 160 10 Dextrose 5%-0.45% NaCl 1, 450 000 ml @ 50 mls/hr IV . Q20H [facility] Rx#:[id number] Invasive Line 4 70 30 10 Invasive Line 5 10 30 Piperacillin-Tazobactam 3 100 100 .375 gm In Sodium Chloride 0.9% 100 ml @ 25 mls/hr IVPB Q8HR [facility] Rx# :[id number] Intake, IV Titration 90.583 Amount Diltiazem 125 mg In 90.583 Sodium Chloride 0.9% 100 ml @ 5 MG/HR 5 mls/hr IV .Q24H [facility] Rx#:[id number] Output: Urine 217 1350 650 [place] ([place]) 400 Other: Voiding Method Indwelling Catheter Indwelling Catheter Indwelling Catheter # Bowel Movements 2 - Constitutional General appearance: Present: no acute distress - Respiratory Respiratory: bilateral: diminished - Cardiovascular Rhythm: irregularly irregular Heart sounds: normal: S1, S2 - Labs CBC & Chem 7: 11/22/18 05:53 11/22/18 05:53 Labs: Abnormal Lab Results - Last 24 Hours (Table) 11/21/18 11/21/18 11/22/18 Range/Units 12:30 23:50 05:53 WBC 11.7 H (3.8-10.6) k/uL RBC 3.58 L (3.80-5.40) m/uL Hgb 9.1 L (11.4-16.0) gm/dL Hct 29.7 L (34.0-46.0) % MCHC 30.6 L (31.0-37.0) g/dL RDW 17.1 H (11.5-15.5) % Neutrophils # 10.5 H (1.3-7.7) k/uL Lymphocytes # 0.6 L (1.0-4.8) k/uL Sodium (137-145) mmol/L Potassium (3.5-5.1) mmol/L Glucose (74-99) mg/dL POC Glucose (mg/dL) 162 H (75-99) mg/dL Calcium (8.4-10.2) mg/dL Albumin 1.9 L (3.5-5.0) g/dL 11/22/18 11/22/18 Range/Units 05:53 05:59 WBC (3.8-10.6) k/uL RBC (3.80-5.40) m/uL Hgb (11.4-16.0) gm/dL Hct (34.0-46.0) % MCHC (31.0-37.0) g/dL RDW (11.5-15.5) % Neutrophils # (1.3-7.7) k/uL Lymphocytes # (1.0-4.8) k/uL Sodium 133 L (137-145) mmol/L Potassium 2.8 L (3.5-5.1) mmol/L Glucose 151 H (74-99) mg/dL POC Glucose (mg/dL) 166 H (75-99) mg/dL Calcium 7.5 L (8.4-10.2) mg/dL Albumin (3.5-5.0) g/dL Assessment and Plan Assessment: Assessment #1 status post right colectomy #2 adenocarcinoma of the colon #3 paroxysmal atrial fibrillation #4 multiple comorbid conditions Plan #1 continue the current medical regimen #2 continue the metoprolol as well as Eliquis #3 follow-up with the patient.
[2018-11-22 11:45] LABS: Glucose,Whole Blood 166 mg/dL (75-99)
[2018-11-22] MEDS: POTASSIUM CHLORIDE 10 MEQ in WATER FOR INJECTION 1 100ML.BAG IVPB SCH ×5 (11:57→23:13)
[2018-11-22] MEDS: amLODIPine 5 MG TAB PO SCH (11:57)
[2018-11-22] MEDS: amLODIPine 10 MG TAB PO SCH (12:41)
[2018-11-22] MEDS: ASPIRIN 81 MG PO SCH (12:41)
--- NOTE | 2018-11-22 14:05 | P.PN ---
Subjective Ms. Cardona is an 88-year-old female with a past medical history of colon cancer, hypertension, hyperlipidemia, COPD admitted for syncope secondary to dehydration. Patient's symptoms improved with IV fluids. Patient has colon cancer without evidence of metastasis so she underwent colectomy by Dr. Weiss on 11/15/18. On 11/18/18 - Overnight no active issues reported by nursing staff , patient is lying comfortably in the bed , appear sto be in distress. She complains of mild abdominal soreness. Patient still has epidural in place. She has Saldivar's catheter in place. She denies having any fever chills or rigors. No chest pain or palpitations. No cough or difficulty in breathing. She has been getting intermittent boluses of IV normal saline, to which she did respond. She is on Zosyn and Flagyl. Patient's blood pressure is still running on the lower side. She is getting IV fluids. Her urinary output is much better compared to . She is making around 25-30 mL every hour. Subjective 11/19/2018 Patient is seen today in the general medical floor. In the morning she still have the NG tube in. She still nothing by mouth. She had gas but regular bowel movements yesterday. Surgical site pain is minimal and controlled. Patient is hemodynamically stable. Her WBC is slightly worse at 16.8 KG, platelet count 244, hemoglobin 8.8. Sodium 134. Rest of the appendectomy was unremarkable. Surgical follow-up is appreciated to the recommend to discontinue epidural and Saldivar catheter. Continue with incentive spirometry. Patient will need repeat chest x-ray in 24-48 hours for her pneumothorax. As per oncology evaluation looks like patient is a stage IV malignancy, and surgery was then for palliation to prevent further obstruction in the future. Chemotherapy could be considered and 4-5 weeks when surgical site is healing 11/20/2018 Patient today has her NG tube removed twice after it was coiled around and for suspected ileus. However patient developed atrial fibrillation's with RVR. Her heart rate was at 150. Patient could not take her beta blockers and other pills. Cardiology team were consulted, patient was transferred to the select unit and patient was started on Cardizem drip and heparin drip upon piece jobber recommendation. Also patient is on aspirin 81 mg to be started tomorrow. Her heart rate is better controlled currently at 117. Blood pressure 135/65. She is saturating 93% on room air. Leukocytosis is improving down to 13.1 K. INR is 1.5. Her potassium today 3.6 and extra replacement was provided for the patient. Sodium 135. Magnesium is 1.5. Abdominal x-ray: Ileus or enteritis. Chest x-ray: Basilar effusion and atelectasis. We will recheck thyroid function test. Family were at bedside and their questions were answered 11/21/2018 Patient currently in the select unit. She was moved upstairs yesterday after she develops A. fib episode. Patient developed severe heartburn overnight with couple episodes of vomiting. Her pain from heartburn this morning is a little bit better. She needed one dose of Dilaudid early this morning. This could be related to the NG tube placed yesterday. Now patient without NG tube. She remains nothing by mouth. No abdominal pain, with no pain at the surgical site for her colonic cancer resection. . No chest pain. No dyspnea. She is fully awake and oriented. She is passing gas but no bowel movements. Abdominal x-ray from yesterday showing ileus versus antritis. Underwent repeat chest x-ray from today. Protonix 40 mg twice a day. She remains on Cardizem drip and heparin drip. Heart rate today is 64. Blood pressure 142/65. 6 saturating 94% and 2 L nasal cannula. Leukocytosis improving down to 11.8 K. Hemoglobin stable at 10.0. Sodium 134. Creatinine 1.1. 11/22/2018 Patient feels better today, she is more awake and alert. She is out of bed to chair. Her heartburn is improving significantly after started on Protonix. She had 2-3 bowel movements yesterday and she still passing gases. Abdominal pain is controlled on minimal. She still nothing by mouth except medication. She is hemodynamically stable. WBC is 11.7 K. Magnesium 1.6 Creatinine back to normal at 1.0. Repeat chest x-ray: Increasing pleural effusion. We will increase her Lasix from 20 mg by mouth 240 mg parenterally. Patient heart rate is controlled while she is on A. fib. She was started on Eliquis by cardiology team and their input is appreciated. Objective - Vital Signs Vital signs: Vital Signs Temp 97.9 F 11/22/18 08:00 Pulse 70 11/22/18 08:00 Resp 18 11/22/18 08:00 BP 116/58 11/22/18 08:00 Pulse Ox 99 11/22/18 08:00 Intake & Output 11/21/18 11/22/18 11/22/18 18:59 06:59 18:59 Intake Total 720.583 160 10 Output Total 217 1350 650 Balance 503.583 -1190 -640 Weight 77.5 kg 77 kg 77 kg Intake: IV 630 160 10 Dextrose 5%-0.45% NaCl 1, 450 000 ml @ 50 mls/hr IV . Q20H REGGIE Rx#:[id number] Invasive Line 4 70 30 10 Invasive Line 5 10 30 Piperacillin-Tazobactam 3 100 100 .375 gm In Sodium Chloride 0.9% 100 ml @ 25 mls/hr IVPB Q8HR REGGIE Rx# :[id number] Intake, IV Titration 90.583 Amount Diltiazem 125 mg In 90.583 Sodium Chloride 0.9% 100 ml @ 5 MG/HR 5 mls/hr IV .Q24H REGGIE Rx#:[id number] Output: Urine 217 1350 650 Uretheral (Saldivar) 400 Other: Voiding Method Indwelling Catheter Indwelling Catheter Indwelling Catheter # Bowel Movements 2 - Exam GENERAL: The patient is alert and oriented x3, not in any acute distress. Well developed, well nourished. HEENT: No pallor. No icterus CARDIOVASCULAR: S1 and S2 present. No murmurs, rubs, or gallops. PULMONARY: Chest is clear to auscultation, no wheezing or crackles. -ABDOMEN: Soft, non distended. No tenderness. Abdominal binder in place. Saldivar's catheter in place. Bowel sounds could not be appreciated. Surgical wound is intact and in a dressing with no surrounding cellulitis MUSCULOSKELETAL: No joint swelling or deformity. EXTREMITIES: No cyanosis, clubbing. Mild pitting edema bilaterally. NEUROLOGICAL: Gross neurological examination did not reveal any focal deficits. SKIN: No rashes. - Labs CBC & Chem 7: 11/22/18 05:53 11/22/18 05:53 Labs: Abnormal Lab Results - Last 24 Hours (Table) 11/21/18 11/22/18 11/22/18 Range/Units 23:50 05:53 05:53 WBC 11.7 H (3.8-10.6) k/uL RBC 3.58 L (3.80-5.40) m/uL Hgb 9.1 L (11.4-16.0) gm/dL Hct 29.7 L (34.0-46.0) % MCHC 30.6 L (31.0-37.0) g/dL RDW 17.1 H (11.5-15.5) % Neutrophils # 10.5 H (1.3-7.7) k/uL Lymphocytes # 0.6 L (1.0-4.8) k/uL Sodium 133 L (137-145) mmol/L Potassium 2.8 L (3.5-5.1) mmol/L Glucose 151 H (74-99) mg/dL POC Glucose (mg/dL) 162 H (75-99) mg/dL Calcium 7.5 L (8.4-10.2) mg/dL 11/22/18 11/22/18 Range/Units 05:59 11:45 WBC (3.8-10.6) k/uL RBC (3.80-5.40) m/uL Hgb (11.4-16.0) gm/dL Hct (34.0-46.0) % MCHC (31.0-37.0) g/dL RDW (11.5-15.5) % Neutrophils # (1.3-7.7) k/uL Lymphocytes # (1.0-4.8) k/uL Sodium (137-145) mmol/L Potassium (3.5-5.1) mmol/L Glucose (74-99) mg/dL POC Glucose (mg/dL) 166 H 166 H (75-99) mg/dL Calcium (8.4-10.2) mg/dL Assessment and Plan Assessment: Colon Cancer - status post right colectomy right side pneumothorax, stable pulmonary nodule and pleural thickening concerning for metastatic disease A. fib with RVR. Cardiology evaluated the patient Syncope resolved Epigastric Heartburn Hypovolemic hyponatremia resolved COPD not in exacerbation Hypertension Hyperlipidemia DJD Leukocytosis , pt is currently on antibiotic Moderate protein calorie malnutrition Hypoalbuminemia Plan: Patient's urinary output much better in the last 24 hours. Surgery team recommend to dc epidural analagesia and saldivar catheter, She is to be continued on Zosyn and Flagyl postop. Patient is started on Cardizem and heparin for Send A. fib. Continue with breathing treatments for her COPD. ppulmonary input is appreciated, follow up with chest xray for the pneumonthorax. Continue with DVT prophylaxis. Further recommendations depending on the progress of the patient.
--- NOTE | 2018-11-22 14:50 | P.PN ---
Subjective Progress Note Date: 11/22/18 Principal diagnosis: Right colon mass Patient doing better today. She is thirsty. She is tolerating ice chips. No nausea or vomiting currently. 2-3 additional bowel movements. White blood cell count is 11.7. Potassium low at 2.8. Objective - Vital Signs Vital signs: Vital Signs Temp 98.2 F 11/22/18 12:52 Pulse 70 11/22/18 12:52 Resp 18 11/22/18 12:52 BP 121/70 11/22/18 12:52 Pulse Ox 99 11/22/18 12:52 Intake & Output 11/21/18 11/22/18 11/22/18 18:59 06:59 18:59 Intake Total 720.583 160 20 Output Total 217 1350 650 Balance 503.583 -1190 -630 Weight 77.5 kg 77 kg 77 kg Intake: IV 630 160 20 Dextrose 5%-0.45% NaCl 1, 450 000 ml @ 50 mls/hr IV . Q20H REGGIE Rx#:[id number] Invasive Line 4 70 30 20 Invasive Line 5 10 30 Piperacillin-Tazobactam 3 100 100 .375 gm In Sodium Chloride 0.9% 100 ml @ 25 mls/hr IVPB Q8HR REGGIE Rx# :[id number] Intake, IV Titration 90.583 Amount Diltiazem 125 mg In 90.583 Sodium Chloride 0.9% 100 ml @ 5 MG/HR 5 mls/hr IV .Q24H REGGIE Rx#:[id number] Output: Urine 217 1350 650 Uretheral ([place]) 400 Other: Voiding Method Indwelling Catheter Indwelling Catheter Indwelling Catheter # Bowel Movements 2 - Exam Abdomen: Soft, minimal distention, mild tenderness, incision clean and dry - Labs CBC & Chem 7: 11/22/18 05:53 11/22/18 05:53 Labs: Abnormal Lab Results - Last 24 Hours (Table) 11/21/18 11/22/18 11/22/18 Range/Units 23:50 05:53 05:53 WBC 11.7 H (3.8-10.6) k/uL RBC 3.58 L (3.80-5.40) m/uL Hgb 9.1 L (11.4-16.0) gm/dL Hct 29.7 L (34.0-46.0) % MCHC 30.6 L (31.0-37.0) g/dL RDW 17.1 H (11.5-15.5) % Neutrophils # 10.5 H (1.3-7.7) k/uL Lymphocytes # 0.6 L (1.0-4.8) k/uL Sodium 133 L (137-145) mmol/L Potassium 2.8 L (3.5-5.1) mmol/L Glucose 151 H (74-99) mg/dL POC Glucose (mg/dL) 162 H (75-99) mg/dL Calcium 7.5 L (8.4-10.2) mg/dL 11/22/18 11/22/18 Range/Units 05:59 11:45 WBC (3.8-10.6) k/uL RBC (3.80-5.40) m/uL Hgb (11.4-16.0) gm/dL Hct (34.0-46.0) % MCHC (31.0-37.0) g/dL RDW (11.5-15.5) % Neutrophils # (1.3-7.7) k/uL Lymphocytes # (1.0-4.8) k/uL Sodium (137-145) mmol/L Potassium (3.5-5.1) mmol/L Glucose (74-99) mg/dL POC Glucose (mg/dL) 166 H 166 H (75-99) mg/dL Calcium (8.4-10.2) mg/dL Assessment and Plan (1) Colon cancer Narrative/Plan: (Clear liquids. Continue physical therapy. Pathology results reviewed with the family. Supplement potassium. Current Visit: Yes Status: Acute Code(s): C18.9 - MALIGNANT NEOPLASM OF COLON, UNSPECIFIED SNOMED Code(s): 476604945
[2018-11-22] MEDS ORDERED: 1: MVI, ADULT NO.4 WITH VIT K 10 ML, TRACE (CONC-1ML/DOSE) 1 ML in AMINO ACID 5%-D15W+LY IV SCH ×3 (15:00)
[2018-11-22] MEDS: FUROSEMIDE 10 MG/ML 4 ML VIAL IV SCH (15:39)
[2018-11-22] MEDS: DEXTROSE 5%-0.45% NACL 1,000 ML IV SCH (15:39)
[2018-11-22] MEDS: FAT EMULSION 20% 250 ML in EMPTY BAG 1 BAG IV SCH (15:40)
[2018-11-22] MEDS: MAGNESIUM SULFATE-D5W PMX 1 GM in DEXTROSE/WATER 1 100ML.BAG IVPB SCH ×2 (16:03→18:21)
[2018-11-22 18:20] LABS: Glucose,Whole Blood 154 mg/dL (75-99)
[2018-11-22 20:38] LABS: Glucose,Whole Blood 139 mg/dL (75-99)
[2018-11-22] MEDS: ATORVASTATIN 10 MG TAB PO SCH (21:44)
[2018-11-22 23:12] LABS: Glucose,Whole Blood 139 mg/dL (75-99)
[2018-11-23] MEDS: POTASSIUM CHLORIDE 10 MEQ in WATER FOR INJECTION 1 100ML.BAG IVPB SCH (01:23)
[2018-11-23 05:54] LABS: Glucose,Whole Blood 135 mg/dL (75-99)
[2018-11-23 06:19] LABS: Anisocytosis Slight; Basophils % (A) 0 %; Eosinophils # (A) 0.2 k/uL (0-0.7); Eosinophils % (A) 1 %; HCT 31.2 % (34.0-46.0); HGB 9.2 gm/dL (11.4-16.0); Hypochromasia Marked; Lymphocytes # (A) 0.7 k/uL (1.0-4.8); Lymphocytes % (A) 7 %; MCH 25.5 pg (25.0-35.0); MCHC 29.6 g/dL (31.0-37.0); MCV 86.3 fL (80.0-100.0); Mean Platelet Volume 8.5; Monocytes # (A) 0.4 k/uL (0-1.0); Monocytes % (A) 3 %; Neutrophils # (A) 9.5 k/uL (1.3-7.7); Neutrophils % (A) 88 %; Platelet Count 303 k/uL (150-450); RBC 3.62 m/uL (3.80-5.40); WBC 10.8 k/uL (3.8-10.6)
[2018-11-23] MEDS: METOCLOPRAMIDE 5 MG/ML 2 ML VIAL IVP SCH ×3 (06:21→17:01)
[2018-11-23] MEDS: INSULIN ASPART (NovoLOG) 100 UNIT/ML VIAL SQ SCH ×3 (06:21→21:58)
[2018-11-23] MEDS: LEVOTHYROXINE 137 MCG TAB PO SCH (06:21)
[2018-11-23 06:27] LABS: Ionized Calcium 4.5 mg/dL (4.5-5.3)
[2018-11-23 06:37] LABS: Calcium 7.4 mg/dL (8.4-10.2); Magnesium 1.7 mg/dL (1.6-2.3); Phosphorus 2.1 mg/dL (2.5-4.5)
[2018-11-23 06:51] LABS: Potassium 2.9 mmol/L (3.5-5.1)
[2018-11-23] MEDS ORDERED: 1: MVI, ADULT NO.4 WITH VIT K 10 ML, TRACE (CONC-1ML/DOSE) 1 ML in AMINO ACID 5%-D15W+LY IV SCH ×3 (07:00)
[2018-11-23] MEDS ORDERED: SODIUM PHOSPHATE 10 MMOL in SODIUM CHLORIDE 0.9% 100 ML IVPB ONE (08:00)
--- NOTE | 2018-11-23 08:21 | P.PN ---
Subjective Progress Note Date: 11/23/18 Principal diagnosis: Paroxysmal atrial fibrillation This is a pleasant 88-year-old female patient with a past medical history significant for hypertension, dyslipidemia, COPD, thyroid disorder, and history of abdominal aortic aneurysm status post repair, who was admitted to the hospital and underwent right colectomy on November 15. The patient subsequently went into atrial fibrillation with RVR and we consulted to see the patient because of that. On follow-up with the patient today, November [id number], the patient overall is feeling better. She still short of breath. She is not as nauseated as yesterday. She denies any symptoms of chest pain or chest discomfort. She continues to be in atrial fibrillation/multifocal atrial tachycardia with a resting heart rate around 90 beats per minutes. She is on oral anticoagulation with Eliquis. Beside that she continues to be on Lasix IV and the creatinine continues to be stable. The potassium is low and we will replace that. The chest x-ray from yesterday continues to show pleural effusion. Objective - Vital Signs Vital signs: Vital Signs Temp 97.8 F 11/23/18 04:05 Pulse 99 11/23/18 04:05 Resp 22 11/23/18 04:05 BP 111/67 11/23/18 04:05 Pulse Ox 97 11/23/18 04:05 Intake & Output 11/22/18 11/23/18 11/23/18 18:59 06:59 18:59 Intake Total 500 Output Total 1050 Balance -550 Weight 77 kg 80 kg Intake: IV 20 Invasive Line 4 20 Oral 480 Output: Urine 850 Post Void Residual 200 Other: Voiding Method Indwelling Catheter # Voids 1 1 # Bowel Movements 1 - Constitutional General appearance: Present: no acute distress - Respiratory Respiratory: bilateral: diminished - Cardiovascular Rhythm: irregularly irregular Heart sounds: normal: S1, S2 - Labs CBC & Chem 7: 11/23/18 05:59 11/23/18 05:59 Labs: Abnormal Lab Results - Last 24 Hours (Table) 11/22/18 11/22/18 11/22/18 Range/Units 11:45 18:18 20:36 WBC (3.8-10.6) k/uL RBC (3.80-5.40) m/uL Hgb (11.4-16.0) gm/dL Hct (34.0-46.0) % MCHC (31.0-37.0) g/dL RDW (11.5-15.5) % Neutrophils # (1.3-7.7) k/uL Lymphocytes # (1.0-4.8) k/uL Sodium (137-145) mmol/L Potassium (3.5-5.1) mmol/L Glucose (74-99) mg/dL POC Glucose (mg/dL) 166 H 154 H 139 H (75-99) mg/dL Calcium (8.4-10.2) mg/dL Phosphorus (2.5-4.5) mg/dL 11/22/18 11/23/18 11/23/18 Range/Units 23:09 05:52 05:59 WBC 10.8 H (3.8-10.6) k/uL RBC 3.62 L (3.80-5.40) m/uL Hgb 9.2 L (11.4-16.0) gm/dL Hct 31.2 L (34.0-46.0) % MCHC 29.6 L (31.0-37.0) g/dL RDW 17.0 H (11.5-15.5) % Neutrophils # 9.5 H (1.3-7.7) k/uL Lymphocytes # 0.7 L (1.0-4.8) k/uL Sodium (137-145) mmol/L Potassium (3.5-5.1) mmol/L Glucose (74-99) mg/dL POC Glucose (mg/dL) 139 H 135 H (75-99) mg/dL Calcium (8.4-10.2) mg/dL Phosphorus (2.5-4.5) mg/dL 11/23/18 Range/Units 05:59 WBC (3.8-10.6) k/uL RBC (3.80-5.40) m/uL Hgb (11.4-16.0) gm/dL Hct (34.0-46.0) % MCHC (31.0-37.0) g/dL RDW (11.5-15.5) % Neutrophils # (1.3-7.7) k/uL Lymphocytes # (1.0-4.8) k/uL Sodium 130 L (137-145) mmol/L Potassium 2.9 L (3.5-5.1) mmol/L Glucose 127 H (74-99) mg/dL POC Glucose (mg/dL) (75-99) mg/dL Calcium 7.4 L (8.4-10.2) mg/dL Phosphorus 2.1 L (2.5-4.5) mg/dL Assessment and Plan Assessment: Assessment #1 status post right colectomy #2 adenocarcinoma of the colon #3 paroxysmal atrial fibrillation #4 multiple comorbid conditions Plan #1 continue the current medical regimen #2 continue the metoprolol as well as Eliquis #3 continue the Lasix for additional 24 hours #4 replace the potassium #5 follow-up with the patient
[2018-11-23] MEDS: PIPERACILLIN-TAZOBACTAM 3.375 GM in SODIUM CHLORIDE 0.9% 100 ML IVPB SCH ×2 (09:00→17:39)
[2018-11-23] MEDS: FUROSEMIDE 10 MG/ML 4 ML VIAL IV SCH (09:00)
[2018-11-23] MEDS: PANTOPRAZOLE 40 MG/10 ML VIAL IVP SCH ×2 (09:00→22:11)
[2018-11-23] MEDS: METOPROLOL TARTRATE 50 MG TAB PO SCH ×2 (09:01→22:11)
[2018-11-23] MEDS: amLODIPine 5 MG TAB PO SCH (09:01)
[2018-11-23] MEDS: APIXABAN 2.5 MG TABLET PO SCH ×2 (09:01→22:11)
[2018-11-23] MEDS: metroNIDAZOLE 500 MG TAB PO SCH ×2 (09:01→17:00)
[2018-11-23] MEDS: FERROUS SULFATE ORAL ELIXIR 300 MG/5 ML CUP PO SCH ×2 (09:03→22:11)
[2018-11-23] MEDS: FORMOTEROL FUMARATE 20 MCG/2 ML NEBU INHALATION SCH ×2 (10:08→19:40)
[2018-11-23] MEDS: IPRATROPIUM-ALBUTEROL 3 ML NEB INHALATION SCH ×3 (10:08→19:40)
[2018-11-23] MEDS: BUDESONIDE 1 MG/2 ML NEBU INHALATION SCH ×2 (10:08→19:40)
--- NOTE | 2018-11-23 11:07 | P.PN ---
Progress Note - Text Progress Note Date: 11/23/18 A she is resting comfortably in bed. She is tolerating clears. She has no real complaints. On exam her vital signs are stable. Abdomen soft. Incision site is clean dry intact. Status post right colectomy. Patient will of her diet advanced to full liquids.
--- NOTE | 2018-11-23 11:51 | P.PN ---
Subjective Ms. Cardona is an 88-year-old female with a past medical history of colon cancer, hypertension, hyperlipidemia, COPD admitted for syncope secondary to dehydration. Patient's symptoms improved with IV fluids. Patient has colon cancer without evidence of metastasis so she underwent colectomy by Dr. Weiss on 11/15/18. On 11/18/18 - Overnight no active issues reported by nursing staff , patient is lying comfortably in the bed , appear sto be in distress. She complains of mild abdominal soreness. Patient still has epidural in place. She has Saldivar's catheter in place. She denies having any fever chills or rigors. No chest pain or palpitations. No cough or difficulty in breathing. She has been getting intermittent boluses of IV normal saline, to which she did respond. She is on Zosyn and Flagyl. Patient's blood pressure is still running on the lower side. She is getting IV fluids. Her urinary output is much better compared to . She is making around 25-30 mL every hour. Subjective 11/19/2018 Patient is seen today in the general medical floor. In the morning she still have the NG tube in. She still nothing by mouth. She had gas but regular bowel movements yesterday. Surgical site pain is minimal and controlled. Patient is hemodynamically stable. Her WBC is slightly worse at 16.8 KG, platelet count 244, hemoglobin 8.8. Sodium 134. Rest of the appendectomy was unremarkable. Surgical follow-up is appreciated to the recommend to discontinue epidural and Saldivar catheter. Continue with incentive spirometry. Patient will need repeat chest x-ray in 24-48 hours for her pneumothorax. As per oncology evaluation looks like patient is a stage IV malignancy, and surgery was then for palliation to prevent further obstruction in the future. Chemotherapy could be considered and 4-5 weeks when surgical site is healing 11/20/2018 Patient today has her NG tube removed twice after it was coiled around and for suspected ileus. However patient developed atrial fibrillation's with RVR. Her heart rate was at 150. Patient could not take her beta blockers and other pills. Cardiology team were consulted, patient was transferred to the select unit and patient was started on Cardizem drip and heparin drip upon office machine servicer apprentice recommendation. Also patient is on aspirin 81 mg to be started tomorrow. Her heart rate is better controlled currently at 117. Blood pressure 135/65. She is saturating 93% on room air. Leukocytosis is improving down to 13.1 K. INR is 1.5. Her potassium today 3.6 and extra replacement was provided for the patient. Sodium 135. Magnesium is 1.5. Abdominal x-ray: Ileus or enteritis. Chest x-ray: Basilar effusion and atelectasis. We will recheck thyroid function test. Family were at bedside and their questions were answered 11/21/2018 Patient currently in the select unit. She was moved upstairs yesterday after she develops A. fib episode. Patient developed severe heartburn overnight with couple episodes of vomiting. Her pain from heartburn this morning is a little bit better. She needed one dose of Dilaudid early this morning. This could be related to the NG tube placed yesterday. Now patient without NG tube. She remains nothing by mouth. No abdominal pain, with no pain at the surgical site for her colonic cancer resection. . No chest pain. No dyspnea. She is fully awake and oriented. She is passing gas but no bowel movements. Abdominal x-ray from yesterday showing ileus versus antritis. Underwent repeat chest x-ray from today. Protonix 40 mg twice a day. She remains on Cardizem drip and heparin drip. Heart rate today is 64. Blood pressure 142/65. 6 saturating 94% and 2 L nasal cannula. Leukocytosis improving down to 11.8 K. Hemoglobin stable at 10.0. Sodium 134. Creatinine 1.1. 11/22/2018 Patient feels better today, she is more awake and alert. She is out of bed to chair. Her heartburn is improving significantly after started on Protonix. She had 2-3 bowel movements yesterday and she still passing gases. Abdominal pain is controlled on minimal. She still nothing by mouth except medication. She is hemodynamically stable. WBC is 11.7 K. Magnesium 1.6 Creatinine back to normal at 1.0. Repeat chest x-ray: Increasing pleural effusion. We will increase her Lasix from 20 mg by mouth 240 mg parenterally. Patient heart rate is controlled while she is on A. fib. She was started on Eliquis by cardiology team and their input is appreciated. 11/23/2018 Today patient is awake alert, no chest pain. Her abdominal pain is easing down. Patient looks improving as she having bowel movement, she is tolerating clear liquid diet with no nausea and vomiting. Heartburn is improving. Swelling is coming down with the diuretics. She has abnormal electrolytes been replaced. She is hemodynamically stable. Leukocytosis is improving. Sodium 130, potassium 2.9, she got Lasix 40 mg IV today. There are clots replaced. Hold further Lasix and put the patient on fluid restriction to 1500 mL per day. Just continue on Eliquis and antibiotics Flagyl and Zosyn. And PPN was started Objective - Vital Signs Vital signs: Vital Signs Temp 97.7 F 11/23/18 08:00 Pulse 60 11/23/18 08:00 Resp 20 11/23/18 08:00 BP 132/49 11/23/18 08:00 Pulse Ox 95 11/23/18 08:00 Intake & Output 11/22/18 11/23/18 11/23/18 18:59 06:59 18:59 Intake Total 500 240 Output Total 1050 Balance -550 240 Weight 77 kg 80 kg Intake: IV 20 Invasive Line 4 20 Oral 480 240 Output: Urine 850 Post Void Residual 200 Other: Voiding Method Bedside Commode Bedside Commode Diaper Diaper Incontinent Incontinent # Voids 1 1 # Bowel Movements 1 - Exam GENERAL: The patient is alert and oriented x3, not in any acute distress. Well developed, well nourished. HEENT: No pallor. No icterus CARDIOVASCULAR: S1 and S2 present. No murmurs, rubs, or gallops. PULMONARY: Chest is clear to auscultation, no wheezing or crackles. -ABDOMEN: Soft, non distended. No tenderness. Abdominal binder in place. Saldivar's catheter in place. Bowel sounds could not be appreciated. Surgical wound is intact and in a dressing with no surrounding cellulitis MUSCULOSKELETAL: No joint swelling or deformity. EXTREMITIES: No cyanosis, clubbing. Mild pitting edema bilaterally. NEUROLOGICAL: Gross neurological examination did not reveal any focal deficits. SKIN: No rashes. - Labs CBC & Chem 7: 11/23/18 05:59 11/23/18 05:59 Labs: Abnormal Lab Results - Last 24 Hours (Table) 11/22/18 11/22/18 11/22/18 Range/Units 11:45 18:18 20:36 WBC (3.8-10.6) k/uL RBC (3.80-5.40) m/uL Hgb (11.4-16.0) gm/dL Hct (34.0-46.0) % MCHC (31.0-37.0) g/dL RDW (11.5-15.5) % Neutrophils # (1.3-7.7) k/uL Lymphocytes # (1.0-4.8) k/uL Sodium (137-145) mmol/L Potassium (3.5-5.1) mmol/L Glucose (74-99) mg/dL POC Glucose (mg/dL) 166 H 154 H 139 H (75-99) mg/dL Calcium (8.4-10.2) mg/dL Phosphorus (2.5-4.5) mg/dL 11/22/18 11/23/18 11/23/18 Range/Units 23:09 05:52 05:59 WBC 10.8 H (3.8-10.6) k/uL RBC 3.62 L (3.80-5.40) m/uL Hgb 9.2 L (11.4-16.0) gm/dL Hct 31.2 L (34.0-46.0) % MCHC 29.6 L (31.0-37.0) g/dL RDW 17.0 H (11.5-15.5) % Neutrophils # 9.5 H (1.3-7.7) k/uL Lymphocytes # 0.7 L (1.0-4.8) k/uL Sodium (137-145) mmol/L Potassium (3.5-5.1) mmol/L Glucose (74-99) mg/dL POC Glucose (mg/dL) 139 H 135 H (75-99) mg/dL Calcium (8.4-10.2) mg/dL Phosphorus (2.5-4.5) mg/dL 11/23/18 Range/Units 05:59 WBC (3.8-10.6) k/uL RBC (3.80-5.40) m/uL Hgb (11.4-16.0) gm/dL Hct (34.0-46.0) % MCHC (31.0-37.0) g/dL RDW (11.5-15.5) % Neutrophils # (1.3-7.7) k/uL Lymphocytes # (1.0-4.8) k/uL Sodium 130 L (137-145) mmol/L Potassium 2.9 L (3.5-5.1) mmol/L Glucose 127 H (74-99) mg/dL POC Glucose (mg/dL) (75-99) mg/dL Calcium 7.4 L (8.4-10.2) mg/dL Phosphorus 2.1 L (2.5-4.5) mg/dL Assessment and Plan Assessment: Colon Cancer - status post right colectomy right side pneumothorax, stable pulmonary nodule and pleural thickening concerning for metastatic disease A. fib with RVR. Cardiology evaluated the patient Syncope resolved Epigastric Heartburn Hypovolemic hyponatremia resolved COPD not in exacerbation Hypertension Hyperlipidemia DJD Leukocytosis , pt is currently on antibiotic Moderate protein calorie malnutrition Hypoalbuminemia Plan: Patient's urinary output much better in the last 24 hours. Surgery team recommend to dc epidural analagesia and saldivar catheter, She is to be continued on Zosyn and Flagyl postop. Patient is started on Cardizem and heparin for Send A. fib. Continue with breathing treatments for her COPD. ppulmonary input is appreciated, follow up with chest xray for the pneumonthorax. Continue with DVT prophylaxis. Further recommendations depending on the progress of the patient.
[2018-11-23 12:10] LABS: Glucose,Whole Blood 146 mg/dL (75-99)
[2018-11-23] MEDS: POTASSIUM CHLORIDE 20 MEQ in WATER FOR INJECTION 1 100ML.BAG IVPB SCH ×3 (13:28→17:39)
[2018-11-23] MEDS: MAGNESIUM SULFATE-D5W PMX 1 GM in DEXTROSE/WATER 1 100ML.BAG IVPB SCH ×2 (13:28→15:15)
[2018-11-23] MEDS: FAT EMULSION 20% 250 ML in EMPTY BAG 1 BAG IV SCH (17:02)
[2018-11-23 18:05] LABS: Glucose,Whole Blood 170 mg/dL (75-99)
[2018-11-23] MEDS: ATORVASTATIN 10 MG TAB PO SCH (22:10)
[2018-11-23 22:49] LABS: Glucose,Whole Blood 148 mg/dL (75-99)
[2018-11-24] MEDS: METOCLOPRAMIDE 5 MG/ML 2 ML VIAL IVP SCH ×5 (00:39→23:52)
[2018-11-24] MEDS: INSULIN ASPART (NovoLOG) 100 UNIT/ML VIAL SQ SCH ×5 (00:40→23:57)
[2018-11-24] MEDS: metroNIDAZOLE 500 MG TAB PO SCH ×4 (00:40→23:52)
[2018-11-24 05:57] LABS: Glucose,Whole Blood 95 mg/dL (75-99)
[2018-11-24 06:28] LABS: Anisocytosis Slight; Basophils % (A) 0 %; Eosinophils # (A) 0.2 k/uL (0-0.7); Eosinophils % (A) 1 %; HCT 30.3 % (34.0-46.0); HGB 9.3 gm/dL (11.4-16.0); Hypochromasia Moderate; Lymphocytes # (A) 0.9 k/uL (1.0-4.8); Lymphocytes % (A) 9 %; MCH 25.8 pg (25.0-35.0); MCHC 30.6 g/dL (31.0-37.0); MCV 84.2 fL (80.0-100.0); Mean Platelet Volume 8.5; Monocytes # (A) 0.5 k/uL (0-1.0); Monocytes % (A) 5 %; Neutrophils # (A) 9.1 k/uL (1.3-7.7); Neutrophils % (A) 85 %; Platelet Count 320 k/uL (150-450); RDW 17.5 % (11.5-15.5); WBC 10.8 k/uL (3.8-10.6)
[2018-11-24 06:32] LABS: Ionized Calcium 4.4 mg/dL (4.5-5.3)
[2018-11-24 06:43] LABS: Calcium 7.1 mg/dL (8.4-10.2); Phosphorus 2.7 mg/dL (2.5-4.5); Potassium 3.3 mmol/L (3.5-5.1)
[2018-11-24] MEDS ORDERED: CALCIUM GLUCONATE 1 GM in SODIUM CHLORIDE 0.9% 100 ML IVPB ONE (07:45)
[2018-11-24] MEDS: APIXABAN 2.5 MG TABLET PO SCH ×2 (08:12→20:48)
[2018-11-24] MEDS: LEVOTHYROXINE 137 MCG TAB PO SCH (08:12)
[2018-11-24] MEDS: POTASSIUM CHLORIDE 20 MEQ in WATER FOR INJECTION 1 100ML.BAG IVPB SCH ×2 (08:12→10:15)
[2018-11-24] MEDS: amLODIPine 5 MG TAB PO SCH (08:12)
[2018-11-24] MEDS: PANTOPRAZOLE 40 MG/10 ML VIAL IVP SCH ×2 (08:13→20:48)
[2018-11-24] MEDS: METOPROLOL TARTRATE 50 MG TAB PO SCH ×2 (08:13→20:48)
--- NOTE | 2018-11-24 08:34 | XR ---
EXAMINATION TYPE: XR chest 1V DATE OF EXAM: 11/24/2018 COMPARISON: Prior chest x-ray 11/22/2018 HISTORY: Follow-up pneumonia TECHNIQUE: Single frontal view of the chest is obtained. FINDINGS: Right-sided PICC line is stable. Bibasilar increased density persists. No evident pneumoth orax. Heart size is stable. Surgical clips present in the upper abdomen. IMPRESSION: There may be some slight improvement in aeration. Bibasilar effusions and associated ate lectasis versus edema or pneumonia. Additional follow-up recommended.
[2018-11-24] MEDS ORDERED: SODIUM CHLORIDE 0.9% 500 ML 250 ML IV ONE (08:36)
[2018-11-24] MEDS: FORMOTEROL FUMARATE 20 MCG/2 ML NEBU INHALATION SCH ×2 (08:54→19:30)
[2018-11-24] MEDS: BUDESONIDE 1 MG/2 ML NEBU INHALATION SCH ×2 (08:54→19:30)
[2018-11-24] MEDS: IPRATROPIUM-ALBUTEROL 3 ML NEB INHALATION SCH ×3 (08:54→19:30)
--- NOTE | 2018-11-24 10:03 | P.PN ---
Progress Note - Text Progress Note Date: 11/24/18 The patient is resting comfortably in her bed. She denies any significant abdominal pain. On exam her vital signs are stable. Incision site is clean dry intact. Status post right colectomy. Patient will have her diet advanced.
[2018-11-24] MEDS: FERROUS SULFATE ORAL ELIXIR 300 MG/5 ML CUP PO SCH ×2 (10:15→20:48)
--- NOTE | 2018-11-24 10:55 | P.PN ---
Subjective Ms. Cardona is an 88-year-old female with a past medical history of colon cancer, hypertension, hyperlipidemia, COPD admitted for syncope secondary to dehydration. Patient's symptoms improved with IV fluids. Patient has colon cancer without evidence of metastasis so she underwent colectomy by Dr. Weiss on 11/15/18. On 11/18/18 - Overnight no active issues reported by nursing staff , patient is lying comfortably in the bed , appear sto be in distress. She complains of mild abdominal soreness. Patient still has epidural in place. She has Saldivar's catheter in place. She denies having any fever chills or rigors. No chest pain or palpitations. No cough or difficulty in breathing. She has been getting intermittent boluses of IV normal saline, to which she did respond. She is on Zosyn and Flagyl. Patient's blood pressure is still running on the lower side. She is getting IV fluids. Her urinary output is much better compared to . She is making around 25-30 mL every hour. Subjective 11/19/2018 Patient is seen today in the general medical floor. In the morning she still have the NG tube in. She still nothing by mouth. She had gas but regular bowel movements yesterday. Surgical site pain is minimal and controlled. Patient is hemodynamically stable. Her WBC is slightly worse at 16.8 KG, platelet count 244, hemoglobin 8.8. Sodium 134. Rest of the appendectomy was unremarkable. Surgical follow-up is appreciated to the recommend to discontinue epidural and Saldivar catheter. Continue with incentive spirometry. Patient will need repeat chest x-ray in 24-48 hours for her pneumothorax. As per oncology evaluation looks like patient is a stage IV malignancy, and surgery was then for palliation to prevent further obstruction in the future. Chemotherapy could be considered and 4-5 weeks when surgical site is healing 11/20/2018 Patient today has her NG tube removed twice after it was coiled around and for suspected ileus. However patient developed atrial fibrillation's with RVR. Her heart rate was at 150. Patient could not take her beta blockers and other pills. Cardiology team were consulted, patient was transferred to the select unit and patient was started on Cardizem drip and heparin drip upon gm recommendation. Also patient is on aspirin 81 mg to be started tomorrow. Her heart rate is better controlled currently at 117. Blood pressure 135/65. She is saturating 93% on room air. Leukocytosis is improving down to 13.1 K. INR is 1.5. Her potassium today 3.6 and extra replacement was provided for the patient. Sodium 135. Magnesium is 1.5. Abdominal x-ray: Ileus or enteritis. Chest x-ray: Basilar effusion and atelectasis. We will recheck thyroid function test. Family were at bedside and their questions were answered 11/21/2018 Patient currently in the select unit. She was moved upstairs yesterday after she develops A. fib episode. Patient developed severe heartburn overnight with couple episodes of vomiting. Her pain from heartburn this morning is a little bit better. She needed one dose of Dilaudid early this morning. This could be related to the NG tube placed yesterday. Now patient without NG tube. She remains nothing by mouth. No abdominal pain, with no pain at the surgical site for her colonic cancer resection. . No chest pain. No dyspnea. She is fully awake and oriented. She is passing gas but no bowel movements. Abdominal x-ray from yesterday showing ileus versus antritis. Underwent repeat chest x-ray from today. Protonix 40 mg twice a day. She remains on Cardizem drip and heparin drip. Heart rate today is 64. Blood pressure 142/65. 6 saturating 94% and 2 L nasal cannula. Leukocytosis improving down to 11.8 K. Hemoglobin stable at 10.0. Sodium 134. Creatinine 1.1. 11/22/2018 Patient feels better today, she is more awake and alert. She is out of bed to chair. Her heartburn is improving significantly after started on Protonix. She had 2-3 bowel movements yesterday and she still passing gases. Abdominal pain is controlled on minimal. She still nothing by mouth except medication. She is hemodynamically stable. WBC is 11.7 K. Magnesium 1.6 Creatinine back to normal at 1.0. Repeat chest x-ray: Increasing pleural effusion. We will increase her Lasix from 20 mg by mouth 240 mg parenterally. Patient heart rate is controlled while she is on A. fib. She was started on Eliquis by cardiology team and their input is appreciated. 11/23/2018 Today patient is awake alert, no chest pain. Her abdominal pain is easing down. Patient looks improving as she having bowel movement, she is tolerating clear liquid diet with no nausea and vomiting. Heartburn is improving. Swelling is coming down with the diuretics. She has abnormal electrolytes been replaced. She is hemodynamically stable. Leukocytosis is improving. Sodium 130, potassium 2.9, she got Lasix 40 mg IV today. There are clots replaced. Hold further Lasix and put the patient on fluid restriction to 1500 mL per day. Just continue on Eliquis and antibiotics Flagyl and Zosyn. And PPN was started 11/24/2018 Patient was then was hypotensive with systolic blood pressure 70s. She received a bolus of 250 mL of normal saline, her Lasix was already been stopped. Her blood pressure improved today up to 137/67 with orthostatic changes, however patient is asymptomatic with no postural dizziness. She also have frequent diarrhea, watery. No worsening abdominal pain. No nausea vomiting. We will send stool sample for C. diff and stool culture. Repeat chest x-ray from this morning showing possible pneumonia versus interstitial edema. White cell count is stable at 10.8 K. Hemoglobin 9.3. Sodium improved up to 132, potassium improved to 3.3. Which is been replaced. Creatinine is normal. Patient was started on full liquid diet by surgery team. And her arm swelling is resolved. Patient Zosyn was stopped and she continue on Flagyl CONSTITUTIONAL: No fever HEENT: No recent visual problems or hearing problems. Denied any sore throat. CARDIOVASCULAR: No orthopnea, PND, no palpitations, no syncope. PULMONARY: No shortness of breath, no cough, no hemoptysis. GASTROINTESTINAL: no nausea, no vomiting. Normoactive bowel sounds. NEUROLOGICAL: No headaches, no weakness, no numbness. HEMATOLOGICAL: Denies any bleeding or petechiae. GENITOURINARY: Denies any burning micturition, frequency, or urgency. MUSCULOSKELETAL/RHEUMATOLOGICAL: Denies any joint pain, swelling, or any muscle pain. ENDOCRINE: Denies any polyuria or polydipsia. Medication: Albuterol 0.5 mg, Norvasc 5 mg, Eliquis 2.5 mg, Lipitor 10 mg, Pulmicort 1 mg, she is on TPN, ferrous sulfate 125 mg, perform a trough fumarate 20 g, Dilaudid 0.5 mg, Novolin sliding scale, levothyroxine 137 and 274 milligrams, Reglan 10 mg, Lopressor 50 mg, Flagyl 500 mg, Zofran 4 mg, Objective - Vital Signs Vital signs: Vital Signs Temp 97.7 F 11/24/18 07:38 Pulse 68 11/24/18 08:00 Resp 18 11/24/18 08:00 BP 137/67 11/24/18 08:05 Pulse Ox 95 11/24/18 07:38 Intake & Output 11/23/18 11/24/18 11/24/18 18:59 06:59 18:59 Intake Total 410 50 Balance 410 50 Weight 79.5 kg Intake: Oral 410 50 Other: Voiding Method Bedside Commode Bedside Commode Bedside Commode Diaper Diaper Diaper Incontinent Incontinent Incontinent # Voids 1 1 1 # Bowel Movements 1 1 - Exam GENERAL: The patient is alert and oriented x3, not in any acute distress. Well developed, well nourished. HEENT: No pallor. No icterus CARDIOVASCULAR: S1 and S2 present. No murmurs, rubs, or gallops. PULMONARY: Chest is clear to auscultation, no wheezing or crackles. -ABDOMEN: Soft, non distended. No tenderness. Abdominal binder in place. Saldivar's catheter in place. Bowel sounds could not be appreciated. Surgical wound is intact and in a dressing with no surrounding cellulitis MUSCULOSKELETAL: No joint swelling or deformity. EXTREMITIES: No cyanosis, clubbing. Mild pitting edema bilaterally. NEUROLOGICAL: Gross neurological examination did not reveal any focal deficits. SKIN: No rashes. - Labs CBC & Chem 7: 11/24/18 05:37 11/24/18 05:37 Labs: Abnormal Lab Results - Last 24 Hours (Table) 11/23/18 11/23/18 11/23/18 Range/Units 12:09 18:03 22:47 WBC (3.8-10.6) k/uL RBC (3.80-5.40) m/uL Hgb (11.4-16.0) gm/dL Hct (34.0-46.0) % MCHC (31.0-37.0) g/dL RDW (11.5-15.5) % Neutrophils # (1.3-7.7) k/uL Lymphocytes # (1.0-4.8) k/uL Sodium (137-145) mmol/L Potassium (3.5-5.1) mmol/L POC Glucose (mg/dL) 146 H 170 H 148 H (75-99) mg/dL Calcium (8.4-10.2) mg/dL Ionized Calcium Shila (4.5-5.3) mg/dL 11/24/18 11/24/18 Range/Units 05:37 05:37 WBC 10.8 H (3.8-10.6) k/uL RBC 3.60 L (3.80-5.40) m/uL Hgb 9.3 L (11.4-16.0) gm/dL Hct 30.3 L (34.0-46.0) % MCHC 30.6 L (31.0-37.0) g/dL RDW 17.5 H (11.5-15.5) % Neutrophils # 9.1 H (1.3-7.7) k/uL Lymphocytes # 0.9 L (1.0-4.8) k/uL Sodium 132 L (137-145) mmol/L Potassium 3.3 L (3.5-5.1) mmol/L POC Glucose (mg/dL) (75-99) mg/dL Calcium 7.1 L (8.4-10.2) mg/dL Ionized Calcium Shila 4.4 L (4.5-5.3) mg/dL Assessment and Plan Assessment: Colon Cancer - status post right colectomy right side pneumothorax, stable Diarrhea, rule out C. diff pulmonary nodule and pleural thickening concerning for metastatic disease A. fib with RVR. Cardiology evaluated the patient Syncope resolved Epigastric Heartburn. Resolved Hypovolemic hyponatremia resolved COPD not in exacerbation Hypertension Hyperlipidemia DJD Leukocytosis , pt is currently on antibiotic Moderate protein calorie malnutrition Hypoalbuminemia Plan: Patient's urinary output much better in the last 24 hours. Surgery team recommend to dc epidural analagesia and saldivar catheter, She is to be continued on Zosyn and Flagyl postop. Patient is started on Cardizem and heparin . Send stool studies Send A. fib. Continue with breathing treatments for her COPD. ppulmonary input is appreciated, follow up with chest xray for the pneumonthorax. Continue with DVT prophylaxis. Further recommendations depending on the progress of the patient.
--- NOTE | 2018-11-24 11:29 | P.PN ---
Subjective Progress Note Date: 11/24/18 Principal diagnosis: Paroxysmal atrial fibrillation This is a pleasant 88-year-old female patient with a past medical history significant for hypertension, dyslipidemia, COPD, thyroid disorder, and history of abdominal aortic aneurysm status post repair, who was admitted to the hospital and underwent right colectomy on November 15. The patient subsequently went into atrial fibrillation with RVR and we consulted to see the patient because of that. On follow-up with the patient today, 11/24/2018, the patient is feeling better. She denies any chest pain or chest discomfort. Denies any shortness of breath at this point. Hemodynamically she continues to be stable. She continues to be on oral anticoagulation. The potassium is low and it would be replaced. Objective - Vital Signs Vital signs: Vital Signs Temp 97.7 F 11/24/18 07:38 Pulse 68 11/24/18 08:00 Resp 18 11/24/18 08:00 BP 137/67 11/24/18 08:05 Pulse Ox 95 11/24/18 07:38 Intake & Output 11/23/18 11/24/18 11/24/18 18:59 06:59 18:59 Intake Total 410 50 Balance 410 50 Weight 79.5 kg Intake: Oral 410 50 Other: Voiding Method Bedside Commode Bedside Commode Bedside Commode Diaper Diaper Diaper Incontinent Incontinent Incontinent # Voids 1 1 1 # Bowel Movements 1 1 - Constitutional General appearance: Present: no acute distress - Respiratory Respiratory: bilateral: diminished - Cardiovascular Heart sounds: normal: S1, S2 - Labs CBC & Chem 7: 11/24/18 05:37 11/24/18 05:37 Labs: Abnormal Lab Results - Last 24 Hours (Table) 11/23/18 11/23/18 11/23/18 Range/Units 12:09 18:03 22:47 WBC (3.8-10.6) k/uL RBC (3.80-5.40) m/uL Hgb (11.4-16.0) gm/dL Hct (34.0-46.0) % MCHC (31.0-37.0) g/dL RDW (11.5-15.5) % Neutrophils # (1.3-7.7) k/uL Lymphocytes # (1.0-4.8) k/uL Sodium (137-145) mmol/L Potassium (3.5-5.1) mmol/L POC Glucose (mg/dL) 146 H 170 H 148 H (75-99) mg/dL Calcium (8.4-10.2) mg/dL Ionized Calcium Shila (4.5-5.3) mg/dL 11/24/18 11/24/18 Range/Units 05:37 05:37 WBC 10.8 H (3.8-10.6) k/uL RBC 3.60 L (3.80-5.40) m/uL Hgb 9.3 L (11.4-16.0) gm/dL Hct 30.3 L (34.0-46.0) % MCHC 30.6 L (31.0-37.0) g/dL RDW 17.5 H (11.5-15.5) % Neutrophils # 9.1 H (1.3-7.7) k/uL Lymphocytes # 0.9 L (1.0-4.8) k/uL Sodium 132 L (137-145) mmol/L Potassium 3.3 L (3.5-5.1) mmol/L POC Glucose (mg/dL) (75-99) mg/dL Calcium 7.1 L (8.4-10.2) mg/dL Ionized Calcium Shila 4.4 L (4.5-5.3) mg/dL Assessment and Plan Assessment: Assessment #1 status post right colectomy #2 adenocarcinoma of the colon #3 paroxysmal atrial fibrillation #4 multiple comorbid conditions Plan #1 continue the current medical regimen #2 continue the metoprolol as well as Eliquis #3 replace the potassium
[2018-11-24 11:54] LABS: Glucose,Whole Blood 152 mg/dL (75-99)
[2018-11-24] MEDS: FAT EMULSION 20% 250 ML in EMPTY BAG 1 BAG IV SCH (15:30)
[2018-11-24 17:21] LABS: Glucose,Whole Blood 157 mg/dL (75-99)
[2018-11-24] MEDS: ATORVASTATIN 10 MG TAB PO SCH (20:48)
[2018-11-24] MEDS ORDERED: MORPHINE CONC SOLN 10mg/0.5mL ORAL SYRG PO ONE (21:00)
[2018-11-24] MEDS: 1: MVI, ADULT NO.4 WITH VIT K 10 ML, TRACE (CONC-1ML/DOSE) 1 ML, SODIUM CHLORIDE 2.5MEQ/ IV SCH ×9 (23:47)
[2018-11-24 23:56] LABS: Glucose,Whole Blood 149 mg/dL (75-99)
[2018-11-25 05:51] LABS: Glucose,Whole Blood 135 mg/dL (75-99)
[2018-11-25 06:12] LABS: Anisocytosis Slight; Basophils % (A) 0 %; Eosinophils # (A) 0.2 k/uL (0-0.7); Eosinophils % (A) 2 %; HCT 28.9 % (34.0-46.0); HGB 8.9 gm/dL (11.4-16.0); Hypochromasia Marked; Lymphocytes # (A) 0.8 k/uL (1.0-4.8); Lymphocytes % (A) 8 %; MCH 25.9 pg (25.0-35.0); MCHC 30.7 g/dL (31.0-37.0); MCV 84.3 fL (80.0-100.0); Mean Platelet Volume 8.8; Monocytes # (A) 0.4 k/uL (0-1.0); Monocytes % (A) 4 %; Neutrophils # (A) 8.5 k/uL (1.3-7.7); Neutrophils % (A) 85 %; Platelet Count 338 k/uL (150-450); RBC 3.43 m/uL (3.80-5.40); RDW 17.7 % (11.5-15.5)
[2018-11-25] MEDS: LEVOTHYROXINE 137 MCG TAB PO SCH (06:13)
[2018-11-25] MEDS: METOCLOPRAMIDE 5 MG/ML 2 ML VIAL IVP SCH ×4 (06:13→23:48)
[2018-11-25] MEDS: INSULIN ASPART (NovoLOG) 100 UNIT/ML VIAL SQ SCH ×4 (06:13→23:49)
[2018-11-25 06:44] LABS: Anion Gap 0 mmol/L; Blood Urea Nitrogen 15 mg/dL (7-17); Calcium 7.3 mg/dL (8.4-10.2); Carbon Dioxide 29 mmol/L (22-30); Chloride 104 mmol/L (98-107); Glucose 143 mg/dL (74-99); Phosphorus 2.7 mg/dL (2.5-4.5); Potassium 3.8 mmol/L (3.5-5.1); Sodium 133 mmol/L (137-145)
[2018-11-25] MEDS ORDERED: CALCIUM GLUCONATE 1 GM in SODIUM CHLORIDE 0.9% 100 ML IVPB ONE (08:00)
[2018-11-25] MEDS: FERROUS SULFATE ORAL ELIXIR 300 MG/5 ML CUP PO SCH ×2 (08:27→21:10)
[2018-11-25] MEDS: APIXABAN 2.5 MG TABLET PO SCH ×2 (08:28→21:10)
[2018-11-25] MEDS: PANTOPRAZOLE 40 MG/10 ML VIAL IVP SCH ×2 (08:28→21:10)
[2018-11-25] MEDS: METOPROLOL TARTRATE 50 MG TAB PO SCH ×2 (08:28→21:10)
[2018-11-25] MEDS: metroNIDAZOLE 500 MG TAB PO SCH ×3 (08:28→23:48)
[2018-11-25] MEDS: FORMOTEROL FUMARATE 20 MCG/2 ML NEBU INHALATION SCH ×2 (08:32→20:17)
[2018-11-25] MEDS: BUDESONIDE 1 MG/2 ML NEBU INHALATION SCH ×2 (08:32→20:17)
[2018-11-25] MEDS: IPRATROPIUM-ALBUTEROL 3 ML NEB INHALATION SCH ×3 (08:32→20:17)
--- NOTE | 2018-11-25 10:31 | P.PN ---
Progress Note - Text Progress Note Date: 11/25/18 Patient's resting comfortably in bed. She denies any significant abdominal pain. She's been tolerating her diet. On exam vital signs are stable. Abdomen is soft. Incision sites clean and intact. Status post right club. Patient is stable for transfer to [facility].
--- NOTE | 2018-11-25 10:56 | P.PN ---
Subjective Progress Note Date: 11/25/18 Principal diagnosis: Paroxysmal atrial fibrillation This is a pleasant 88-year-old female patient with a past medical history significant for hypertension, dyslipidemia, COPD, thyroid disorder, and history of abdominal aortic aneurysm status post repair, who was admitted to the hospital and underwent right colectomy on November 15. The patient subsequently went into atrial fibrillation with RVR and we consulted to see the patient because of that. On follow-up with the patient today, 11/25/2018, the patient is feeling better. She denies any chest pain or chest discomfort. Denies any shortness of breath at this point. Hemodynamically she continues to be stable. She continues to be on oral anticoagulation. The heart rate seems to be controlled on the current dose of metoprolol. Objective - Vital Signs Vital signs: Vital Signs Temp 98.0 F 11/25/18 08:20 Pulse 80 11/25/18 08:55 Resp 18 11/25/18 08:20 BP 116/67 11/25/18 08:20 Pulse Ox 95 11/25/18 08:20 Intake & Output 11/24/18 11/25/18 11/25/18 18:59 06:59 18:59 Intake Total 290 0 Output Total 900 Balance -610 0 Weight 78 kg Intake: Oral 290 0 Output: Urine 300 Stool 600 Other: Voiding Method Bedside Commode Bedside Commode Bedside Commode Diaper Diaper Diaper Incontinent Incontinent Incontinent # Voids 1 1 # Bowel Movements 1 - Constitutional General appearance: Present: no acute distress - Respiratory Respiratory: bilateral: diminished - Cardiovascular Rhythm: irregularly irregular Heart sounds: normal: S1, S2 - Labs CBC & Chem 7: 11/25/18 06:00 11/25/18 06:00 Labs: Abnormal Lab Results - Last 24 Hours (Table) 11/24/18 11/24/18 11/24/18 Range/Units 11:53 13:00 17:19 RBC (3.80-5.40) m/uL Hgb (11.4-16.0) gm/dL Hct (34.0-46.0) % MCHC (31.0-37.0) g/dL RDW (11.5-15.5) % Neutrophils # (1.3-7.7) k/uL Lymphocytes # (1.0-4.8) k/uL Sodium (137-145) mmol/L Glucose (74-99) mg/dL POC Glucose (mg/dL) 152 H 157 H (75-99) mg/dL Calcium (8.4-10.2) mg/dL Stool Lactoferrin POSITIVE H (NEGATIVE) 11/24/18 11/25/18 11/25/18 Range/Units 23:54 05:50 06:00 RBC 3.43 L (3.80-5.40) m/uL Hgb 8.9 L (11.4-16.0) gm/dL Hct 28.9 L (34.0-46.0) % MCHC 30.7 L (31.0-37.0) g/dL RDW 17.7 H (11.5-15.5) % Neutrophils # 8.5 H (1.3-7.7) k/uL Lymphocytes # 0.8 L (1.0-4.8) k/uL Sodium (137-145) mmol/L Glucose (74-99) mg/dL POC Glucose (mg/dL) 149 H 135 H (75-99) mg/dL Calcium (8.4-10.2) mg/dL Stool Lactoferrin (NEGATIVE) 11/25/18 Range/Units 06:00 RBC (3.80-5.40) m/uL Hgb (11.4-16.0) gm/dL Hct (34.0-46.0) % MCHC (31.0-37.0) g/dL RDW (11.5-15.5) % Neutrophils # (1.3-7.7) k/uL Lymphocytes # (1.0-4.8) k/uL Sodium 133 L (137-145) mmol/L Glucose 143 H (74-99) mg/dL POC Glucose (mg/dL) (75-99) mg/dL Calcium 7.3 L (8.4-10.2) mg/dL Stool Lactoferrin (NEGATIVE) Microbiology - Last 24 Hours (Table) 11/24/18 13:00 Stool Culture - Preliminary Stool Assessment and Plan Assessment: Assessment #1 status post right colectomy #2 adenocarcinoma of the colon #3 paroxysmal atrial fibrillation #4 multiple comorbid conditions Plan #1 continue the current medical regimen #2 continue the metoprolol as well as Eliquis #3 follow-up with the patient
[2018-11-25 12:15] LABS: Glucose,Whole Blood 128 mg/dL (75-99)
[2018-11-25 13:20] VITALS: BMI 26.9
--- NOTE | 2018-11-25 14:24 | P.PN ---
Subjective Ms. Cardona is an 88-year-old female with a past medical history of colon cancer, hypertension, hyperlipidemia, COPD admitted for syncope secondary to dehydration. Patient's symptoms improved with IV fluids. Patient has colon cancer without evidence of metastasis so she underwent colectomy by Dr. Weiss on 11/15/18. On 11/18/18 - Overnight no active issues reported by nursing staff , patient is lying comfortably in the bed , appear sto be in distress. She complains of mild abdominal soreness. Patient still has epidural in place. She has Saldivar's catheter in place. She denies having any fever chills or rigors. No chest pain or palpitations. No cough or difficulty in breathing. She has been getting intermittent boluses of IV normal saline, to which she did respond. She is on Zosyn and Flagyl. Patient's blood pressure is still running on the lower side. She is getting IV fluids. Her urinary output is much better compared to . She is making around 25-30 mL every hour. Subjective 11/19/2018 Patient is seen today in the general medical floor. In the morning she still have the NG tube in. She still nothing by mouth. She had gas but regular bowel movements yesterday. Surgical site pain is minimal and controlled. Patient is hemodynamically stable. Her WBC is slightly worse at 16.8 KG, platelet count 244, hemoglobin 8.8. Sodium 134. Rest of the appendectomy was unremarkable. Surgical follow-up is appreciated to the recommend to discontinue epidural and Saldivar catheter. Continue with incentive spirometry. Patient will need repeat chest x-ray in 24-48 hours for her pneumothorax. As per oncology evaluation looks like patient is a stage IV malignancy, and surgery was then for palliation to prevent further obstruction in the future. Chemotherapy could be considered and 4-5 weeks when surgical site is healing 11/20/2018 Patient today has her NG tube removed twice after it was coiled around and for suspected ileus. However patient developed atrial fibrillation's with RVR. Her heart rate was at 150. Patient could not take her beta blockers and other pills. Cardiology team were consulted, patient was transferred to the select unit and patient was started on Cardizem drip and heparin drip upon c++ professor recommendation. Also patient is on aspirin 81 mg to be started tomorrow. Her heart rate is better controlled currently at 117. Blood pressure 135/65. She is saturating 93% on room air. Leukocytosis is improving down to 13.1 K. INR is 1.5. Her potassium today 3.6 and extra replacement was provided for the patient. Sodium 135. Magnesium is 1.5. Abdominal x-ray: Ileus or enteritis. Chest x-ray: Basilar effusion and atelectasis. We will recheck thyroid function test. Family were at bedside and their questions were answered 11/21/2018 Patient currently in the select unit. She was moved upstairs yesterday after she develops A. fib episode. Patient developed severe heartburn overnight with couple episodes of vomiting. Her pain from heartburn this morning is a little bit better. She needed one dose of Dilaudid early this morning. This could be related to the NG tube placed yesterday. Now patient without NG tube. She remains nothing by mouth. No abdominal pain, with no pain at the surgical site for her colonic cancer resection. . No chest pain. No dyspnea. She is fully awake and oriented. She is passing gas but no bowel movements. Abdominal x-ray from yesterday showing ileus versus antritis. Underwent repeat chest x-ray from today. Protonix 40 mg twice a day. She remains on Cardizem drip and heparin drip. Heart rate today is 64. Blood pressure 142/65. 6 saturating 94% and 2 L nasal cannula. Leukocytosis improving down to 11.8 K. Hemoglobin stable at 10.0. Sodium 134. Creatinine 1.1. 11/22/2018 Patient feels better today, she is more awake and alert. She is out of bed to chair. Her heartburn is improving significantly after started on Protonix. She had 2-3 bowel movements yesterday and she still passing gases. Abdominal pain is controlled on minimal. She still nothing by mouth except medication. She is hemodynamically stable. WBC is 11.7 K. Magnesium 1.6 Creatinine back to normal at 1.0. Repeat chest x-ray: Increasing pleural effusion. We will increase her Lasix from 20 mg by mouth 240 mg parenterally. Patient heart rate is controlled while she is on A. fib. She was started on Eliquis by cardiology team and their input is appreciated. 11/23/2018 Today patient is awake alert, no chest pain. Her abdominal pain is easing down. Patient looks improving as she having bowel movement, she is tolerating clear liquid diet with no nausea and vomiting. Heartburn is improving. Swelling is coming down with the diuretics. She has abnormal electrolytes been replaced. She is hemodynamically stable. Leukocytosis is improving. Sodium 130, potassium 2.9, she got Lasix 40 mg IV today. There are clots replaced. Hold further Lasix and put the patient on fluid restriction to 1500 mL per day. Just continue on Eliquis and antibiotics Flagyl and Zosyn. And PPN was started 11/24/2018 Patient was then was hypotensive with systolic blood pressure 70s. She received a bolus of 250 mL of normal saline, her Lasix was already been stopped. Her blood pressure improved today up to 137/67 with orthostatic changes, however patient is asymptomatic with no postural dizziness. She also have frequent diarrhea, watery. No worsening abdominal pain. No nausea vomiting. We will send stool sample for C. diff and stool culture. Repeat chest x-ray from this morning showing possible pneumonia versus interstitial edema. White cell count is stable at 10.8 K. Hemoglobin 9.3. Sodium improved up to 132, potassium improved to 3.3. Which is been replaced. Creatinine is normal. Patient was started on full liquid diet by surgery team. And her arm swelling is resolved. Patient Zosyn was stopped and she continue on Flagyl 11/25/2018 Patient is fully awake and oriented today. She is not in distress with no chest pain or dyspnea. However she still have difficulty with eating associated with pain of this port area, on examination there is mild inflammation and somewhat spots but does not look like thrush. Also patient has some loose bowel movement about twice today of good amounts. C. diff is negative, culture is pending and in the process. Stool wbc is elevated probably from the recent surgery. However patient heartburn is resolved now. Vitals stable with no fever. Blood pressure is stable. WBC is coming down to 10.0 K. 12 patient is on Flagyl. Hemoglobin 8.9. Sodium 133 and creatinine within normal limits. Glucose is controlled. Repeat chest x-ray tomorrow. We'll start on nystatin a trial for a few days to see that he can difference and we'll check influenza. 11/26/2018 Patient was transferred to the general medical floor today. Patient is fully awake and oriented today, she is lying in bed eating her lunch with no difficulty. She feels that her dyspnea is improving with no chest pain or coughing. Patient thinks she back close to normal. Patient is hemodynamically stable, mildly tachycardic. She saturating 94% and 2 L oxygen. Leukocytosis improving to 13.9 K. Creatinine 0.7. Hemoglobin is a stable patient respiratory status is improving on the current treatment. CONSTITUTIONAL: No fever HEENT: No recent visual problems or hearing problems. Denied any sore throat. CARDIOVASCULAR: No orthopnea, PND, no palpitations, no syncope. PULMONARY: No shortness of breath, no cough, no hemoptysis. GASTROINTESTINAL: no nausea, no vomiting. Normoactive bowel sounds. NEUROLOGICAL: No headaches, no weakness, no numbness. HEMATOLOGICAL: Denies any bleeding or petechiae. GENITOURINARY: Denies any burning micturition, frequency, or urgency. MUSCULOSKELETAL/RHEUMATOLOGICAL: Denies any joint pain, swelling, or any muscle pain. ENDOCRINE: Denies any polyuria or polydipsia. Medication: Albuterol 0.5 mg, Norvasc 5 mg, Eliquis 2.5 mg, Lipitor 10 mg, Pulmicort 1 mg, she is on TPN, ferrous sulfate 125 mg, perform a trough fumarate 20 g, Dilaudid 0.5 mg, Novolin sliding scale, levothyroxine 137 and 274 milligrams, Reglan 10 mg, Lopressor 50 mg, Flagyl 500 mg, Zofran 4 mg, Objective - Vital Signs Vital signs: Vital Signs Temp 98.0 F 11/25/18 08:20 Pulse 80 11/25/18 08:55 Resp 18 11/25/18 08:20 BP 116/67 11/25/18 08:20 Pulse Ox 95 11/25/18 08:20 Intake & Output 11/24/18 11/25/18 11/25/18 18:59 06:59 18:59 Intake Total 290 0 Output Total 900 Balance -610 0 Weight 78 kg 78 kg Intake: Oral 290 0 Output: Urine 300 Stool 600 Other: Voiding Method Bedside Commode Bedside Commode Bedside Commode Diaper Diaper Diaper Incontinent Incontinent Incontinent # Voids 1 1 # Bowel Movements 1 - Exam GENERAL: The patient is alert and oriented x3, not in any acute distress. Well developed, well nourished. HEENT: No pallor. No icterus CARDIOVASCULAR: S1 and S2 present. No murmurs, rubs, or gallops. PULMONARY: Chest is clear to auscultation, no wheezing or crackles. -ABDOMEN: Soft, non distended. No tenderness. Abdominal binder in place. Saldivar's catheter in place. Bowel sounds could not be appreciated. Surgical wound is intact and in a dressing with no surrounding cellulitis MUSCULOSKELETAL: No joint swelling or deformity. EXTREMITIES: No cyanosis, clubbing. Mild pitting edema bilaterally. NEUROLOGICAL: Gross neurological examination did not reveal any focal deficits. SKIN: No rashes. - Labs CBC & Chem 7: 11/25/18 06:00 11/25/18 06:00 Labs: Abnormal Lab Results - Last 24 Hours (Table) 11/24/18 11/24/18 11/24/18 Range/Units 13:00 17:19 23:54 RBC (3.80-5.40) m/uL Hgb (11.4-16.0) gm/dL Hct (34.0-46.0) % MCHC (31.0-37.0) g/dL RDW (11.5-15.5) % Neutrophils # (1.3-7.7) k/uL Lymphocytes # (1.0-4.8) k/uL Sodium (137-145) mmol/L Glucose (74-99) mg/dL POC Glucose (mg/dL) 157 H 149 H (75-99) mg/dL Calcium (8.4-10.2) mg/dL Stool Lactoferrin POSITIVE H (NEGATIVE) 11/25/18 11/25/18 11/25/18 Range/Units 05:50 06:00 06:00 RBC 3.43 L (3.80-5.40) m/uL Hgb 8.9 L (11.4-16.0) gm/dL Hct 28.9 L (34.0-46.0) % MCHC 30.7 L (31.0-37.0) g/dL RDW 17.7 H (11.5-15.5) % Neutrophils # 8.5 H (1.3-7.7) k/uL Lymphocytes # 0.8 L (1.0-4.8) k/uL Sodium 133 L (137-145) mmol/L Glucose 143 H (74-99) mg/dL POC Glucose (mg/dL) 135 H (75-99) mg/dL Calcium 7.3 L (8.4-10.2) mg/dL Stool Lactoferrin (NEGATIVE) 11/25/18 Range/Units 12:13 RBC (3.80-5.40) m/uL Hgb (11.4-16.0) gm/dL Hct (34.0-46.0) % MCHC (31.0-37.0) g/dL RDW (11.5-15.5) % Neutrophils # (1.3-7.7) k/uL Lymphocytes # (1.0-4.8) k/uL Sodium (137-145) mmol/L Glucose (74-99) mg/dL POC Glucose (mg/dL) 128 H (75-99) mg/dL Calcium (8.4-10.2) mg/dL Stool Lactoferrin (NEGATIVE) Microbiology - Last 24 Hours (Table) 11/24/18 13:00 Stool Culture - Preliminary Stool Assessment and Plan Assessment: Colon Cancer - status post right colectomy right side pneumothorax, stable Diarrhea, rule out C. diff pulmonary nodule and pleural thickening concerning for metastatic disease A. fib with RVR. Cardiology evaluated the patient Syncope resolved Epigastric Heartburn. Resolved Hypovolemic hyponatremia resolved COPD not in exacerbation Hypertension Hyperlipidemia DJD Leukocytosis , pt is currently on antibiotic Moderate protein calorie malnutrition Hypoalbuminemia Plan: Patient's urinary output much better in the last 24 hours. Surgery team recommend to dc epidural analagesia and saldivar catheter, She is to be continued on Zosyn and Flagyl postop. Patient is started on Cardizem and heparin . Send stool studies Send A. fib. Continue with breathing treatments for her COPD. ppulmonary input is appreciated, follow up with chest xray for the pneumonthorax. Continue with DVT prophylaxis. Further recommendations depending on the progress of the patient.
[2018-11-25 17:51] LABS: Glucose,Whole Blood 124 mg/dL (75-99)
[2018-11-25] MEDS: FAT EMULSION 20% 250 ML in EMPTY BAG 1 BAG IV SCH (17:53)
[2018-11-25] MEDS: 1: MVI, ADULT NO.4 WITH VIT K 10 ML, TRACE (CONC-1ML/DOSE) 1 ML, SODIUM CHLORIDE 2.5MEQ/ IV SCH ×9 (17:55)
[2018-11-25] MEDS: NYSTATIN 100,000 UNIT/ML SUSP 500,000 UNIT/5 ML CUP PO SCH ×3 (17:57→21:11)
[2018-11-25] MEDS: amLODIPine 5 MG TAB PO SCH (17:59)
[2018-11-25] MEDS: ATORVASTATIN 10 MG TAB PO SCH (21:10)
[2018-11-25 23:27] LABS: Glucose,Whole Blood 165 mg/dL (75-99)
[2018-11-26 06:13] LABS: Glucose,Whole Blood 141 mg/dL (75-99)
[2018-11-26] MEDS: METOCLOPRAMIDE 5 MG/ML 2 ML VIAL IVP SCH ×2 (06:57→12:00)
[2018-11-26] MEDS: LEVOTHYROXINE 137 MCG TAB PO SCH (06:57)
[2018-11-26] MEDS: INSULIN ASPART (NovoLOG) 100 UNIT/ML VIAL SQ SCH ×2 (06:58→11:47)
[2018-11-26] MEDS: IPRATROPIUM-ALBUTEROL 3 ML NEB INHALATION SCH ×2 (07:11→13:01)
[2018-11-26] MEDS: BUDESONIDE 1 MG/2 ML NEBU INHALATION SCH (07:11)
[2018-11-26] MEDS: FORMOTEROL FUMARATE 20 MCG/2 ML NEBU INHALATION SCH (07:11)
[2018-11-26 07:20] LABS: Anisocytosis Slight; Basophils % (A) 0 %; Eosinophils # (A) 0.4 k/uL (0-0.7); Eosinophils % (A) 3 %; HCT 30.7 % (34.0-46.0); Hypochromasia Marked; Lymphocytes # (A) 0.8 k/uL (1.0-4.8); Lymphocytes % (A) 7 %; MCH 25.5 pg (25.0-35.0); MCHC 29.3 g/dL (31.0-37.0); MCV 86.9 fL (80.0-100.0); Mean Platelet Volume 8.6; Monocytes # (A) 0.4 k/uL (0-1.0); Monocytes % (A) 3 %; Neutrophils # (A) 9.6 k/uL (1.3-7.7); Neutrophils % (A) 85 %; Platelet Count 381 k/uL (150-450); RBC 3.53 m/uL (3.80-5.40); RDW 18.1 % (11.5-15.5); WBC 11.2 k/uL (3.8-10.6)
[2018-11-26 07:45] LABS: Anion Gap 4 mmol/L; Blood Urea Nitrogen 16 mg/dL (7-17); Calcium 7.6 mg/dL (8.4-10.2); Carbon Dioxide 27 mmol/L (22-30); Chloride 104 mmol/L (98-107); Glucose 134 mg/dL (74-99); Phosphorus 2.4 mg/dL (2.5-4.5); Potassium 4.1 mmol/L (3.5-5.1); Sodium 135 mmol/L (137-145)
[2018-11-26 08:05] VITALS: TEMP 96.9
[2018-11-26] MEDS: FERROUS SULFATE ORAL ELIXIR 300 MG/5 ML CUP PO SCH (08:18)
[2018-11-26] MEDS: PANTOPRAZOLE 40 MG/10 ML VIAL IVP SCH (08:18)
[2018-11-26] MEDS: METOPROLOL TARTRATE 50 MG TAB PO SCH (08:18)
[2018-11-26] MEDS: metroNIDAZOLE 500 MG TAB PO SCH (08:18)
[2018-11-26] MEDS: NYSTATIN 100,000 UNIT/ML SUSP 500,000 UNIT/5 ML CUP PO SCH ×2 (08:18→13:33)
[2018-11-26] MEDS: amLODIPine 5 MG TAB PO SCH (08:18)
[2018-11-26] MEDS: APIXABAN 2.5 MG TABLET PO SCH (08:18)
--- NOTE | 2018-11-26 08:43 | XR ---
EXAMINATION TYPE: XR chest 1V DATE OF EXAM: 11/26/2018 COMPARISON: 11/24/2018 HISTORY: Shortness of breath TECHNIQUE: Single frontal view of the chest is obtained. FINDINGS: There is slight redistribution but overall similar appearance of the bilateral mild pleura l effusions and associated bibasilar airspace disease. Right PICC is unchanged. Mild multilevel degen erative changes of the spine are noted. Cardia mediastinal silhouette is nonenlarged. Surgical clips are seen in the left upper quadrant. No pulmonary vascular congestion or pneumothorax. IMPRESSION: Similar bibasilar airspace disease, likely atelectasis and small layering pleural effusi ons in comparison to the exam of 11/24/2018.
--- NOTE | 2018-11-26 10:34 | P.PN ---
<Lakshmi Burnett A - Last Filed: 11/26/18 10:27> Subjective Progress Note Date: 11/26/18 CHIEF COMPLAINT: syncope, cancer HISTORY OF PRESENT ILLNESS: Patient is status post right colectomy and extensive lysis of adhesions performed on 11/16/2018. Patient examined at the bedside. Patient sleepy this morning. She denies abdominal pain. Reports passing flatus and having loose BMs. Tolerating diet. Denies further episodes of nausea or vomiting. Patient asking to be discharged today. PHYSICAL EXAM: VITAL SIGNS: Reviewed. GENERAL: Well-developed in no acute distress. HEENT: No sclera icterus. Extraocular movements grossly intact. Moist buccal mucosa. Head is atraumatic, normocephalic. ABDOMEN: Soft. Nondistended. Nontender. Dressing clean dry intact. NEUROLOGIC: Alert and oriented. Cranial nerves II through XII grossly intact. ASSESSMENT: 1. Adenocarcinoma of the colon, s/p right colectomy and extensive lysis of adhesions 2. Postoperative ileus, resolved PLAN: Advance diet to regular diet Stable for discharge from a surgical standpoint Follow up with Dr. Weiss in 1 week. Nurse practitioner note has been reviewed by physician. Signing provider agrees with the documented findings, assessment, and plan of care. Objective - Vital Signs Vital signs: Vital Signs Temp 96.9 F L 11/26/18 08:00 Pulse 72 11/26/18 08:00 Resp 18 11/26/18 08:00 BP 125/61 11/26/18 08:00 Pulse Ox 95 11/26/18 08:00 Intake & Output 11/25/18 11/26/18 11/26/18 18:59 06:59 18:59 Intake Total 910 20 118 Output Total 900 Balance 910 -880 118 Weight 78 kg 78.2 kg Intake: IV 510 20 Invasive Line 4 10 10 Invasive Line 7 20 10 Mvi, Adult No.4 with Vit 480 K 10 ml Trace (Conc-1Ml/ Dose) 1 ml Sodium Chloride 2.5MEQ/ml Vial 20 meq Potassium Phosphate 10 mmol Magnesium Sulfate gm 1 gm In Amino Acid 5%-D15w+ Lytes*E* 1,000 ml @ 60 mls/hr IV .BY DURATION [facility] Rx#:[id number] Oral 400 118 Output: Stool 900 Other: Voiding Method Bedside Commode Bedside Commode Bedside Commode Diaper Diaper Diaper Incontinent Incontinent Incontinent # Voids 1 1 # Bowel Movements 1 - Labs CBC & Chem 7: 11/26/18 06:34 11/26/18 06:34 Labs: Abnormal Lab Results - Last 24 Hours (Table) 11/25/18 11/25/18 11/25/18 Range/Units 12:13 17:48 23:26 WBC (3.8-10.6) k/uL RBC (3.80-5.40) m/uL Hgb (11.4-16.0) gm/dL Hct (34.0-46.0) % MCHC (31.0-37.0) g/dL RDW (11.5-15.5) % Neutrophils # (1.3-7.7) k/uL Lymphocytes # (1.0-4.8) k/uL Sodium (137-145) mmol/L Glucose (74-99) mg/dL POC Glucose (mg/dL) 128 H 124 H 165 H (75-99) mg/dL Calcium (8.4-10.2) mg/dL Phosphorus (2.5-4.5) mg/dL 11/26/18 11/26/18 11/26/18 Range/Units 06:12 06:34 06:34 WBC 11.2 H (3.8-10.6) k/uL RBC 3.53 L (3.80-5.40) m/uL Hgb 9.0 L (11.4-16.0) gm/dL Hct 30.7 L (34.0-46.0) % MCHC 29.3 L (31.0-37.0) g/dL RDW 18.1 H (11.5-15.5) % Neutrophils # 9.6 H (1.3-7.7) k/uL Lymphocytes # 0.8 L (1.0-4.8) k/uL Sodium 135 L (137-145) mmol/L Glucose 134 H (74-99) mg/dL POC Glucose (mg/dL) 141 H (75-99) mg/dL Calcium 7.6 L (8.4-10.2) mg/dL Phosphorus 2.4 L (2.5-4.5) mg/dL <Everett Weiss - Last Filed: 11/26/18 16:02> Subjective As above. Patient doing fairly well. Family has decided to take her home on hospice. They do not want aggressive care. Thankfully she seems to be doing well with her diet and pain control. Follow-up one week. Objective - Vital Signs Vital signs: Vital Signs Temp 96.9 F L 11/26/18 08:00 Pulse 92 11/26/18 12:00 Resp 16 11/26/18 12:00 BP 99/59 11/26/18 12:00 Pulse Ox 93 L 11/26/18 12:00 Intake & Output 11/25/18 11/26/18 11/26/18 18:59 06:59 18:59 Intake Total 1934.3333 20 756 Output Total 900 Balance 1934.3333 -880 756 Weight 78 kg 78.2 kg Intake: IV 510 20 488 Invasive Line 4 10 10 Invasive Line 7 20 10 Mvi, Adult No.4 with Vit 480 488 K 10 ml Trace (Conc-1Ml/ Dose) 1 ml Sodium Chloride 2.5MEQ/ml Vial 20 meq Potassium Phosphate 10 mmol Magnesium Sulfate gm 1 gm In Amino Acid 5%-D15w+ Lytes*E* 1,000 ml @ 60 mls/hr IV .BY DURATION [facility] Rx#:[id number] Intake, IV Titration 1024.3333 100 Amount Mvi, Adult No.4 with Vit 1024.3333 K 10 ml Trace (Conc-1Ml/ Dose) 1 ml Sodium Chloride 2.5MEQ/ml Vial 20 meq Potassium Phosphate 10 mmol Magnesium Sulfate gm 1 gm In Amino Acid 5%-D15w+ Lytes*E* 1,000 ml @ 60 mls/hr IV .BY DURATION [facility] Rx#:[id number] Sodium Phosphate 10 mmol 100 In Sodium Chloride 0.9% 100 ml @ 50 mls/hr IVPB ONCE ONE Rx#:[id number] Oral 400 168 Output: Stool 900 Other: Voiding Method Bedside Commode Bedside Commode Bedside Commode Diaper Diaper Diaper Incontinent Incontinent Incontinent # Voids 1 1 # Bowel Movements 1 - Labs CBC & Chem 7: 11/26/18 06:34 11/26/18 06:34 Labs: Abnormal Lab Results - Last 24 Hours (Table) 11/25/18 11/25/18 11/26/18 Range/Units 17:48 23:26 06:12 WBC (3.8-10.6) k/uL RBC (3.80-5.40) m/uL Hgb (11.4-16.0) gm/dL Hct (34.0-46.0) % MCHC (31.0-37.0) g/dL RDW (11.5-15.5) % Neutrophils # (1.3-7.7) k/uL Lymphocytes # (1.0-4.8) k/uL Sodium (137-145) mmol/L Glucose (74-99) mg/dL POC Glucose (mg/dL) 124 H 165 H 141 H (75-99) mg/dL Calcium (8.4-10.2) mg/dL Phosphorus (2.5-4.5) mg/dL Albumin (3.5-5.0) g/dL 11/26/18 11/26/18 11/26/18 Range/Units 06:34 06:34 11:30 WBC 11.2 H (3.8-10.6) k/uL RBC 3.53 L (3.80-5.40) m/uL Hgb 9.0 L (11.4-16.0) gm/dL Hct 30.7 L (34.0-46.0) % MCHC 29.3 L (31.0-37.0) g/dL RDW 18.1 H (11.5-15.5) % Neutrophils # 9.6 H (1.3-7.7) k/uL Lymphocytes # 0.8 L (1.0-4.8) k/uL Sodium 135 L (137-145) mmol/L Glucose 134 H (74-99) mg/dL POC Glucose (mg/dL) 128 H (75-99) mg/dL Calcium 7.6 L (8.4-10.2) mg/dL Phosphorus 2.4 L (2.5-4.5) mg/dL Albumin (3.5-5.0) g/dL 11/26/18 Range/Units 14:18 WBC (3.8-10.6) k/uL RBC (3.80-5.40) m/uL Hgb (11.4-16.0) gm/dL Hct (34.0-46.0) % MCHC (31.0-37.0) g/dL RDW (11.5-15.5) % Neutrophils # (1.3-7.7) k/uL Lymphocytes # (1.0-4.8) k/uL Sodium (137-145) mmol/L Glucose (74-99) mg/dL POC Glucose (mg/dL) (75-99) mg/dL Calcium (8.4-10.2) mg/dL Phosphorus (2.5-4.5) mg/dL Albumin 2.0 L (3.5-5.0) g/dL Assessment and Plan (1) Colon cancer Current Visit: Yes Status: Acute Code(s): C18.9 - MALIGNANT NEOPLASM OF COLON, UNSPECIFIED SNOMED Code(s): 672490055
[2018-11-26] MEDS: 1: MVI, ADULT NO.4 WITH VIT K 10 ML, TRACE (CONC-1ML/DOSE) 1 ML, SODIUM CHLORIDE 2.5MEQ/ IV SCH ×9 (11:20)
[2018-11-26 11:50] LABS: Glucose,Whole Blood 128 mg/dL (75-99)
[2018-11-26 12:12] VITALS: BP 99/59; PULSE 92; RESP 16
[2018-11-26] MEDS ORDERED: SODIUM PHOSPHATE 10 MMOL in SODIUM CHLORIDE 0.9% 100 ML IVPB ONE (14:00)
--- NOTE | 2018-11-26 15:17 | P.PN ---
Subjective Progress Note Date: 11/26/18 This is a pleasant 88-year-old female past medical history significant for hypertension, COPD, dyslipidemia, hypothyroidism, aortic aneurysm s/p repair with Dr. King at [facility] 2 months ago and peripheral vascular disease. She denies history of coronary artery disease or atrial fibrillation and has never had a cardiac catheterization in the past. She was admitted to the hospital 11/12 after suffering a syncopal episode. Apparently EMS recorded she was in and out of atrial fibrillation. EKG captured on arrival initially revealed sinus mechanism wiwth PAC's and T-wave abnormalities laterally. She had also recently been diagnosed with adenocarcinoma of the colon and was in the initial stages of consulting with Dr. Daniels. Therefore Dr. Weiss was consulted to see her on this admission and subsequently thereafter she underwent right colectomy on 11/15. Another EKG was obtained on 11/18 showing atrial fibrillation with mildly rapid ventricular response heart rate 105. NG tube was removed yesterday however today she was nauseated with abdominal discomfort and NG tube was attempted to be placed again. During that event she went back into atrial fibrillation with rapid ventricular response with heart rates in the 103-140 range. The patient is seen and examined with multiple family members at the bedside. She denies chest pain, shortness of breath, dizziness or palpitations. She continues to be quite nauseated and is unable to tolerate any PO medications. Lengthy discussion had with the family members and there is no prior history of atrial fibrillation prior to this admission. When she was in [facility] 2 months ago she was having significant GI bleeding while on aspirin that prompted her to have colonoscopy which found her mass. At that time aspirin was discontinued. Chest x-ray obtained this morning reveals basilar effusions and associated atelectasis some improvement in aeration of the upper lobes. Laboratory data reviewed, WBC 13.1, hemoglobin 10.1, platelets 292, sodium 135, potassium 3.6, creatinine 0.82, magnesium 1.5, TSH 0.033, LDL 49, HDL 45, cardiac enzymes on admission negative 3. 11/21/2018 Patient was seen and examined this morning, she continues to be in atrial fibrillation, on a Cardizem drip at 5 mg per hour. They are going to attempt to give her oral medications that today, and successful we will discontinue the Cardizem drip and start the patient on Eliquis. Overall the patient states that she's feeling significantly better today. Blood pressure 120/70 with a heart rate in the 90s, 95% on room air. Patient will have PICC line placed today. Following that we will discontinue the heparin and initiate her Eliquis. 11/26/2018 Patient was seen and examined today, overall feeling better. Denies any chest discomfort or shortness of breath. Hemodynamically she remained stable. Continues to be on oral anticoagulation. Heart rate staying in the 70s to 90 range. Repeat chest x-ray from today showed similar bibasilar air space disease likely atelectasis and small layering pleural effusions. Objective - Vital Signs Vital signs: Vital Signs Temp 96.9 F L 11/26/18 08:00 Pulse 92 11/26/18 12:00 Resp 16 11/26/18 12:00 BP 99/59 11/26/18 12:00 Pulse Ox 93 L 11/26/18 12:00 Intake & Output 11/25/18 11/26/18 11/26/18 18:59 06:59 18:59 Intake Total 1934.3333 20 168 Output Total 900 Balance 4.3333 -880 168 Weight 78 kg 78.2 kg Intake: IV 510 20 Invasive Line 4 10 10 Invasive Line 7 20 10 Mvi, Adult No.4 with Vit 480 K 10 ml Trace (Conc-1Ml/ Dose) 1 ml Sodium Chloride 2.5MEQ/ml Vial 20 meq Potassium Phosphate 10 mmol Magnesium Sulfate gm 1 gm In Amino Acid 5%-D15w+ Lytes*E* 1,000 ml @ 60 mls/hr IV .BY DURATION REGGIE Rx#:[id number] Intake, IV Titration 1024.3333 Amount Mvi, Adult No.4 with Vit 1024.3333 K 10 ml Trace (Conc-1Ml/ Dose) 1 ml Sodium Chloride 2.5MEQ/ml Vial 20 meq Potassium Phosphate 10 mmol Magnesium Sulfate gm 1 gm In Amino Acid 5%-D15w+ Lytes*E* 1,000 ml @ 60 mls/hr IV .BY DURATION REGGIE Rx#:[id number] Oral 400 168 Output: Stool 900 Other: Voiding Method Bedside Commode Bedside Commode Bedside Commode Diaper Diaper Diaper Incontinent Incontinent Incontinent # Voids 1 1 # Bowel Movements 1 - Exam GENERAL: This is a 88-year-old female in no apparent distress at the time of my examination. HEENT: Head is atraumatic, normocephalic. Pupils are equal, round. Sclerae anicteric. Conjunctivae are clear. Mucous membranes of the mouth are moist. Neck is supple. There is no jugular venous distention. No carotid bruit is heard. LUNGS: Clear to auscultation no wheezes, rales or rhonchi. No chest wall tenderness is noted on palpation or with deep breathing. Diminished bilaterally. HEART: Irregular rate and rhythm with systolic ejection murmur at the base, no rubs or gallops. S1 and S2 heard. Distant heart sounds. ABDOMEN: Soft, nontender. EXTREMITIES: Non-pitting edema to bilateral upper extremities. 1+ pitting edema bilateral lower extremities. VASCULAR: Radial and dorsalis pedis pulses palpated, no evidence of clubbing. NEUROLOGIC: Patient is awake, alert and oriented. - Labs CBC & Chem 7: 11/26/18 06:34 11/26/18 06:34 Labs: Abnormal Lab Results - Last 24 Hours (Table) 11/25/18 11/25/18 11/26/18 Range/Units 17:48 23:26 06:12 WBC (3.8-10.6) k/uL RBC (3.80-5.40) m/uL Hgb (11.4-16.0) gm/dL Hct (34.0-46.0) % MCHC (31.0-37.0) g/dL RDW (11.5-15.5) % Neutrophils # (1.3-7.7) k/uL Lymphocytes # (1.0-4.8) k/uL Sodium (137-145) mmol/L Glucose (74-99) mg/dL POC Glucose (mg/dL) 124 H 165 H 141 H (75-99) mg/dL Calcium (8.4-10.2) mg/dL Phosphorus (2.5-4.5) mg/dL Albumin (3.5-5.0) g/dL 11/26/18 11/26/18 11/26/18 Range/Units 06:34 06:34 11:30 WBC 11.2 H (3.8-10.6) k/uL RBC 3.53 L (3.80-5.40) m/uL Hgb 9.0 L (11.4-16.0) gm/dL Hct 30.7 L (34.0-46.0) % MCHC 29.3 L (31.0-37.0) g/dL RDW 18.1 H (11.5-15.5) % Neutrophils # 9.6 H (1.3-7.7) k/uL Lymphocytes # 0.8 L (1.0-4.8) k/uL Sodium 135 L (137-145) mmol/L Glucose 134 H (74-99) mg/dL POC Glucose (mg/dL) 128 H (75-99) mg/dL Calcium 7.6 L (8.4-10.2) mg/dL Phosphorus 2.4 L (2.5-4.5) mg/dL Albumin (3.5-5.0) g/dL 11/26/18 Range/Units 14:18 WBC (3.8-10.6) k/uL RBC (3.80-5.40) m/uL Hgb (11.4-16.0) gm/dL Hct (34.0-46.0) % MCHC (31.0-37.0) g/dL RDW (11.5-15.5) % Neutrophils # (1.3-7.7) k/uL Lymphocytes # (1.0-4.8) k/uL Sodium (137-145) mmol/L Glucose (74-99) mg/dL POC Glucose (mg/dL) (75-99) mg/dL Calcium (8.4-10.2) mg/dL Phosphorus (2.5-4.5) mg/dL Albumin 2.0 L (3.5-5.0) g/dL Assessment and Plan Plan: ASSESSMENT AND PlAN #1 Paroxysmal atrial fibrillation with rapid ventricular response, new onset this admission. 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 Exact procedures and information unavailable at this time. #9 Hypothyroidism with suppressed TSH, adjustment of daily supplementation per primary care team. Plan Cardiology's perspective, we'll recommend to continue this patient on her current medications. We'll follow along with you now on an as-needed basis only, please don't hesitate to call with any questions. DNP note has been reviewed, I agree with a documented findings and plan of care. Patient was seen and examined.
== END 2018-11-26 16:34 | disposition hospice, home (50) | DRG 330 ==
LOC: EC 17:58 → 3NMEDONC 19:30 → OBSVTOIN 11-14 15:26 → 2SICU 11-16 11:04 → 3NMEDONC 11-18 21:35 → 3SCARD 11-20 14:00
PROVIDERS: ADMIT Hospitalist; ATTEND Hospitalist
PROC: 0DB68ZX Excision of Stomach, Via Natural or Artificial Opening Endoscopic, Diagnostic (ICD-10-PCS; 2018-11-15)
PROC: 0DN80ZZ Release Small Intestine, Open Approach (ICD-10-PCS; 2018-11-16)
PROC: 0D9670Z Drainage of Stomach with Drainage Device, Via Natural or Artificial Opening (ICD-10-PCS; 2018-11-16)
PROC: 0DTF0ZZ Resection of Right Large Intestine, Open Approach (ICD-10-PCS; principal; 2018-11-16 08:00)
PROC: 02HV33Z Insertion of Infusion Device into Superior Vena Cava, Percutaneous Approach (ICD-10-PCS; 2018-11-21)
DX: C18.2 Malignant neoplasm of ascending colon (principal); J93.9 Pneumothorax, unspecified; E87.1 Hypo-osmolality and hyponatremia; E44.0 Moderate protein-calorie malnutrition; J98.11 Atelectasis; K91.89 Other postprocedural complications and disorders of digestive system; K56.7 Ileus, unspecified; I47.1 Supraventricular tachycardia; J90 Pleural effusion, not elsewhere classified; Z66 Do not resuscitate; I95.9 Hypotension, unspecified; J84.10 Pulmonary fibrosis, unspecified; I48.0 Paroxysmal atrial fibrillation; E83.42 Hypomagnesemia; J43.9 Emphysema, unspecified; E86.0 Dehydration; E86.1 Hypovolemia; D63.0 Anemia in neoplastic disease; I35.0 Nonrheumatic aortic (valve) stenosis; I73.9 Peripheral vascular disease, unspecified; K66.0 Peritoneal adhesions (postprocedural) (postinfection); E87.6 Hypokalemia; R91.1 Solitary pulmonary nodule; M19.90 Unspecified osteoarthritis, unspecified site; I10 Essential (primary) hypertension; D12.3 Benign neoplasm of transverse colon; E78.5 Hyperlipidemia, unspecified; E03.9 Hypothyroidism, unspecified; R32 Unspecified urinary incontinence; Z79.890 Hormone replacement therapy; Z79.51 Long term (current) use of inhaled steroids; Z79.899 Other long term (current) drug therapy; Z87.891 Personal history of nicotine dependence; Z86.73 Personal history of transient ischemic attack (TIA), and cerebral infarction without residual deficits; Z90.49 Acquired absence of other specified parts of digestive tract; Z90.81 Acquired absence of spleen; Z86.79 Personal history of other diseases of the circulatory system
CPT/HCPCS: 36415; 36573; 43239; 70450; 71045; 71046; 71275; 74018; 74177; 80048; 80053; 80061; 81001; 82040; 82330; 82550; 82607; 82728; 82746; 83540; 83550; 83630; 83735; 83921; 84100; 84132; 84443; 84478; 84484; 85025; 85027; 85379; 85610; 85730; 87045; 87046; 87324; 87502; 88305; 88309; 88341; 88342; 93005; 93306; 94640; 94760; 96361; 96365; 96366; 96368; 99285